=== PATIENT | male | born 1955 | race Caucasian/White ===

== ENCOUNTER 2019-10-01 13:28 | Emergency (ER) | payer OTHER, MEDICARE, SELFPAY ==
[2019-10-01 13:53] VITALS: BP 141/83; PULSE 86; RESP 16; TEMP 37; O2SAT 96; BMI 28.5
[2019-10-01 15:19] LABS: Basophils % 0.5 %; Eosinophils # 0.2 10^3/uL (0.0-0.8); Eosinophils % 2.9 %; Hematocrit 42.3 % (42.0-52.0); Hemoglobin 13.7 g/dL (11.7-16.6); Lymphocytes % 18.2 %; Mean Corpuscular HGB Conc 32.4 g/dL (30.0-36.0); Mean Corpuscular Hemoglobin 29.1 pg (28.0-34.0); Mean Platelet Volume 10.1 fL (7.4-10.4); Monocytes # 0.4 10^3/uL (0.2-0.9); Monocytes % 7.3 %; Neutrophils # 3.9 10^3/uL (1.8-7.7); Neutrophils % 70.6 %; Nucleated Red Blood Cells % 0 %; Platelet Count 192 10^3/cmm (130-400); Red Cell Distribution Width 13.8 % (12.1-15.1); White Blood Count 5.5 10^3/uL (4.0-10.0)
[2019-10-01 15:36] LABS: Alanine Aminotransferase 51 U/L (0-41); Albumin Level 4.3 g/dL (3.5-5.2); Alkaline Phosphatase 80 IU/L (40-130); Anion Gap 17.1 (5-19); Aspartate Amino Transferase 36 U/L (0-40); Blood Urea Nitrogen 15 mg/dL (8-23); C Reactive Protein 83.1 mg/L (0.0-4.9); Calcium 9.5 mg/dL (8.5-10.5); Carbon Dioxide 26 mmol/L (22-29); Chloride 96 mmol/L (98-107); Globulin 3.3 g/dL (1.3-4.6); Glucose 117 mg/dL (65-115); Osmolality Calculated 277 mOsm/kg (285-295); Potassium 4.1 mmol/L (3.5-5.1); Sodium 135 mmol/L (136-145); Total Bilirubin 0.5 mg/dL (0.15-1.2); Total Protein 7.6 g/dL (6.6-8.7)
--- NOTE | 2019-10-01 15:46 | W.ED.ALLEREA ---
HPI - Allergic Reaction General: Chief complaint: General Medical Stated complaint: rash/chills sent over by [facility] Time Seen by Provider: 10/01/19 15:27 Source: patient Mode of arrival: ambulatory Limitations: no limitations History of Present Illness: HPI narrative: Patient is a very nice 64-year-old male who presents to ED today with complaints of possible allergic reaction. Patient tells me he began taking Bactrim 5 days ago following a cyst/abscess drainage to the back. He states ever since starting that medication he has not felt well and has had nausea, slight dizziness, body aches, and this morning noticed a rash. Patient has not been running fevers. He has not noticed any intraoral lesions or other mucosal membrane lesions. Patient denies chest pain, shortness of breath, difficulty breathing, cough. He states lesion to his back is healing. complaint: allergic reaction Onset (ago): day(s) Exposure: medication (Bactrim) Associated symptoms: Reports dizziness, nausea and rash; Deny abdominal pain or vomiting Severity: moderate Treatment prior to arrival: none Previous Allergic Reaction History: none Review of Systems Const: Reports: body aches; Denies: fever(s), chills, change in appetite, change in weight, fatigue or malaise Eyes: Denies: change in vision, blurry vision, photophobia, floaters or seeing flashes ENMT: Denies: throat pain, enlarged tonsils, odynophagia, swelling of lips/tongue or oral sores Card: Denies: chest pain Resp: Denies: dyspnea GI: Reports: nausea; Denies: abdominal pain, vomiting or diarrhea Musc: Denies: neck pain or back pain Skin/Breast: Reports: rash Neuro: Reports: dizziness; Denies: headache(s), numbness in extremities, weakness in extremities or sensory changes PFS ED PFSH: Medical History (Updated 10/01/19 @ 15:55 by NORMA Chand) Abscess Asthma COPD (chronic obstructive pulmonary disease) Diabetes Hyperlipidemia Hypertension Surgical History H/O heart bypass surgery H/O inguinal hernia repair H/O umbilical hernia repair Family History Other Cancer Diabetes Denies family history of CAD (coronary artery disease) Anesthesia complication Bleeding disorder Social History Smoking and tobacco status: never smoked Alcohol intake: never Household members: spouse Marital status: Current occupational status: employed History of recent travel: No Physical Exam Const: COMMON NORMALS: no acute distress, patient oriented x3, no limitations and alert NUTRITIONAL APPEARANCE: obese ORIENTATION/CONSCIOUSNESS: Yes oriented to person, Yes oriented to place and Yes oriented to time HENMT: COMMON NORMALS: normocephalic and atraumatic HEAD & SCALP: normal to inspection, normocephalic and atraumatic FACE & SINUS: normal facial exam and sinuses nontender MOUTH: Normal oral and palatal mucosa present, lip normal and tongue normal THROAT: posterior oropharynx normal Eye: COMMON NORMALS: Equal, round and reactive pupils present, EOMs intact bilaterally and conjunctivae normal CONJUNCTIVA: Yes conjunctivae normal PUPIL: Yes Equal, round and reactive pupils present Lymph: LYMPHATIC: no lymphadenopathy noted Resp: COMMON NORMALS: normal respiratory effort and clear to auscultation bilaterally AUSCULTATION: clear to auscultation bilaterally Cardio: COMMON NORMALS: regular rate and regular rhythm RATE: regular rate RHYTHM: regular rhythm GI: COMMON NORMALS: Normal to inspection, nondistended, normoactive bowel sounds present, Soft to palpation, non-tender, No hepatosplenomegaly present and no masses PALPATION: Yes Soft to palpation and Yes No hepatosplenomegaly present Extremity: COMMON NORMALS: normal to inspection GENERAL: Yes normal exam except as noted Neuro: COMMON NORMALS: patient oriented x3 SENSORIUM/ORIENTATION: Yes alert, Yes oriented to person, Yes oriented to place and Yes oriented to time Skin: OTHER: Patient has morbilliform appearing rash to bilateral upper extremities and trunk consistent with a sulfa drug eruption; has lanced cyst/abscess to upper back that appears fully healed. Course Vital Signs: Vital signs: Vital Signs Temperature 98.6 F 10/01/19 13:53 Pulse Rate 86 10/01/19 13:53 Respiratory Rate 16 10/01/19 13:53 Blood Pressure 141/83 10/01/19 13:53 Pulse Oximetry 96 10/01/19 13:53 MDM - Allergic Reaction MDM Narrative: Medical decision making narrative: Patient has no evidence at this time for erythema multiforme, SJS, or TEN. Recommend DC abx. Lesion on back is fully healed and no need to switch him to different abx. Lab Data: Labs: Lab Results 10/01/19 10/01/19 Range/Units 14:50 14:50 WBC 5.5 (4.0-10.0) 10^3/ uL RBC 4.70 (4.1-5.3) 10^6/u L Hgb 13.7 (11.7-16.6) g/dL Hct 42.3 (42.0-52.0) % MCV 90.0 (80-94) fL MCH 29.1 (28.0-34.0) pg MCHC 32.4 (30.0-36.0) g/dL RDW 13.8 (12.1-15.1) % Plt Count 192 (130-400) 10^3/c mm MPV 10.1 (7.4-10.4) fL Neut % (Auto) 70.6 % Lymph % (Auto) 18.2 % [place] % (Auto) 7.3 % Eos % (Auto) 2.9 % Baso % (Auto) 0.5 % Neut # (Auto) 3.9 (1.8-7.7) 10^3/u L Lymph # (Auto) 1.0 (0.8-4.8) 10^3/u L [place] # (Auto) 0.4 (0.2-0.9) 10^3/u L Eos # (Auto) 0.2 (0.0-0.8) 10^3/u L Baso # (Auto) 0.0 (0.0-0.1) 10^3/u L Nucleated RBC % (a uto) 0 % Nucleated RBCs # 0.0 /100WBC Sodium 135 L (136-145) mmol/L Potassium 4.1 (3.5-5.1) mmol/L Chloride 96 L (98-107) mmol/L Carbon Dioxide 26 (22-29) mmol/L Anion Gap 17.1 (5-19) BUN 15 (8-23) mg/dL Creatinine 1.1 (0.7-1.2) mg/dL GFR Calculation 67.0 L (90-130) mL/min Glucose 117 H (65-115) mg/dL Calculated Osmolal ity 277 L (285-295) mOsm/k g Calcium 9.5 (8.5-10.5) mg/dL Total Bilirubin 0.5 (0.15-1.2) mg/dL AST 36 (0-40) U/L ALT 51 H (0-41) U/L Alkaline Phosphata se 80 (40-130) IU/L C-Reactive Protein 83.1 H (0.0-4.9) mg/L Total Protein 7.6 (6.6-8.7) g/dL Albumin 4.3 (3.5-5.2) g/dL Globulin 3.3 (1.3-4.6) g/dL Discharge Plan Discharge Patient Disposition: Home, Self-Care Clinical Impression: Allergic drug rash due to sulfonamide Condition: Stable Prescriptions: No Action ascorbate calcium (vitamin C) 500 mg tablet 500 mg PO DAILY RF: 0 cholecalciferol (vitamin D3) 25 mcg (1,000 unit) capsule 25 mcg PO DAILY RF: 0 omega-3 fatty acids [Fish Oil Concentrate] 1,000 mg capsule 1,000 mg PO DAILY RF: 0 mecobalamin (vitamin B12) 5,000 mcg tablet,disintegrating PO DAILY RF: 0 fluticasone propion-salmeterol [Advair Diskus] 500-50 mcg/dose blister with device 1 inh INHALATION BID RF: 0 aspirin [Adult Low Dose Aspirin] 81 mg tablet,delayed release (DR/EC) 81 mg PO DAILY RF: 0 atorvastatin 80 mg tablet 80 mg PO DAILY RF: 0 sulfamethoxazole-trimethoprim [Bactrim DS] 800-160 mg tablet 1 tab PO BID RF: 0 doxycycline hyclate 100 mg capsule 100 mg PO BID RF: 0 furosemide 40 mg tablet 40 mg PO DAILY RF: 0 lisinopril 40 mg tablet 80 mg PO DAILY RF: 0 metformin 1,000 mg tablet 1,000 mg PO DAILY RF: 0 metoprolol tartrate 100 mg tablet 100 mg PO DAILY RF: 0 nifedipine 60 mg tablet extended release 24hr 60 mg PO DAILY RF: 0 potassium chloride 20 mEq tablet extended release 20 meq PO DAILY RF: 0 red yeast rice 600 mg capsule 1,200 mg PO DAILY RF: 0 Discharge Orders: Discharge Order (Routine); Ordered 10/01/19 Ordered By: Talisha Torres Referrals: Michael Perkins DO [Primary Care Provider] - Activity Restrictions/Additional Instructions: Add sulfa drugs to your allergy list. Discontinue taking the Bactrim. Watch for symptom improvement over the next 48-72 hours. If symptoms worsen at any time or fail to improve please follow up with primary care or return to the ED. Coding Level of Care Code ED Proof Passer for Lakeisha Horvath Exam Comprehensive
[2019-10-01 16:29] VITALS: BP 125/80; PULSE 75; O2SAT 96
== END 2019-10-01 16:29 | disposition home or self-care (01) ==
PROVIDERS: Emergency Provider Physician Assistant; Family Provider Emergency Medicine Emergency Medical Services; PCP Emergency Medicine Emergency Medical Services
DX: L27.0 Generalized skin eruption due to drugs and medicaments taken internally (principal); T37.0X5A Adverse effect of sulfonamides, initial encounter; Z79.82 Long term (current) use of aspirin; J44.9 Chronic obstructive pulmonary disease, unspecified; E11.9 Type 2 diabetes mellitus without complications; E78.5 Hyperlipidemia, unspecified; I10 Essential (primary) hypertension
CPT/HCPCS: 12345; 80053; 85025; 86140; 99281; 99282

== ENCOUNTER 2019-12-02 07:29 | Outpatient (CLI) | payer OTHER, SELFPAY ==
--- NOTE | 2019-12-02 07:46 | USCV_ITS ---
Sourav Anders Age: 64 Gender: M : 1955 Exam Date: 12/02/2019 08:07 Ordering Phys: Efe Rachel MD Technologist: Estee Melgar [place] [facility] [place]: hx of cad BP: 137 / 71 HR: 69 Rhythm: Sinus Technical Quality: Adequate MEASUREMENTS (Male / Female) Normal Values 2D ECHO LV Diastolic Diameter PLAX 4.6 cm 4.2 - 5.9 / 3.9 - 5.3 cm LV Systolic Diameter PLAX 3.0 cm LV Chamber Size 3.9 cm IVS Diastolic Thickness 2.3 cm 0.6 - 1.0 / 0.6 - 0.9 cm IVS Systolic Thickness 2.3 cm LVPW Diastolic Thickness 2.1 cm 0.6 - 1.0 / 0.6 - 0.9 cm LVPW Systolic Thickness 2.6 cm RV Chamber Size 3.6 cm LVOT Diameter 2.1 cm LV Ejection Fraction 2D Teich 62.9 % LV Ejection Fraction MOD 2C 57.4 % LV Ejection Fraction 2C AL 56.1 % LA Diameter 3.8 cm LA Width 3.3 cm LA Height 4.8 cm RA Width 3.1 cm RA Height 4.3 cm M-MODE LV Diastolic Diameter MM 9.3 cm 4.2 - 5.9 / 3.9 - 5.3 cm LV Systolic Diameter MM 7.7 cm LV Ejection Fraction MM Teich 33.6 % IVS Diastolic Thickness MM 1.3 cm 0.6 - 1.0 / 0.6 - 0.9 cm IVS Systolic Thickness MM 1.5 cm LVPW Diastolic Thickness MM 1.1 cm 0.6 - 1.0 / 0.6 - 0.9 cm LVPW Systolic Thickness MM 1.8 cm Aortic Annulus Diameter 4.2 cm LA Ao Ratio MM 0.9 MV E Point Septal Separation 1.8 cm DOPPLER AV Peak Velocity 126.0 cm/s LVOT Peak Velocity 98.0 cm/s AV Area Cont Eq vti 2.1 cm squared AV Area Cont Eq pk 2.6 cm squared MV Area PHT 4.1 cm squared Mitral E to A Ratio 0.8 MV E' Velocity 10.0 cm/s Mitral E to MV E' Ratio 6.5 Mitral E to LV E' Lateral Ratio 6.7 Mitral E to LV E' Septal Ratio 6.4 TR Peak Velocity 250.0 cm/s TR Peak Gradient 25.0 mmHg TR Mean Velocity 182.9 cm/s TR Mean Gradient 16.7 mmHg TR Velocity Time Integral 82.3 cm TV Peak E Velocity 40.0 cm/s Right Atrial Pressure 3.0 mmHg Pulmonary Artery Systolic Pressu 28.0 mmHg PV Peak Velocity 54.0 cm/s RV Acceleration Time 0.1 s RV Ejection Time 0.3 s RV AcT/ET 0.5 FINDINGS Left Ventricle Normal left ventricular size. LV systolic function is borderline normal. LVEF is 50 to 55%. No regional wall motion abnormalities. Mild LVH is noted. Diastolic dysfunction is present. Right Ventricle The right ventricle is normal in size and function. Right Atrium The right atrium is normal in size. Left Atrium The left atrium is normal in size. Mitral Valve Structurally normal mitral valve without significant stenosis or prolapse. There is mild mitral regurgitation. Aortic Valve Structurally normal aortic valve without significant sclerosis or stenosis. There is no aortic regurgitation. Tricuspid Valve Structurally normal tricuspid valve without significant stenosis. There is mild tricuspid regurgitation. RVSP is 25 to 30 mmHg. Pulmonic Valve Structurally normal pulmonic valve without significant stenosis. There is no pulmonic regurgitation. Pericardium Normal pericardium without effusion. Aorta Normal ascending aorta dimension. CONCLUSIONS LV systolic function is borderline normal with EF of 50 to 55%. No regional wall motion abnormalities are noted. Mild mitral regurgitation and tricuspid regurgitation. Dipak Tidwell MD (Electronically Signed) Final Date: 02 December 2019 11:03 S
== END 2019-12-02 07:30 | disposition home or self-care (01) ==
LOC: US 07:30
PROVIDERS: PCP Emergency Medicine Emergency Medical Services; Visit Provider Internal Medicine Clinical Cardiac Electrophysiology
DX: Z87.898 Personal history of other specified conditions (principal); I34.0 Nonrheumatic mitral (valve) insufficiency; I07.1 Rheumatic tricuspid insufficiency
CPT/HCPCS: 93306

== ENCOUNTER 2021-01-31 12:34 | Outpatient (CLI) | payer OTHER, SELFPAY ==
--- NOTE | 2021-01-31 08:00 | USCV_ITS ---
Sourav Anders Age: 66 Gender: M : 1955 Exam Date: 01/31/2021 12:49 Ordering Phys: Mary Read MD ([email or web address]) Technologist: An Scott Exam Location: [facility] – [place] Indication: cad BP: 200 / 90 HR: 74 Rhythm: Sinus Technical Quality: Technically difficult study MEASUREMENTS (Male / Female) Normal Values 2D ECHO LVOT Diameter 2.0 cm LV Ejection Fraction MOD 2C 47.6 % LV Ejection Fraction 2C AL 49.9 % LA Diameter 3.7 cm LA Width 3.7 cm LA Height 4.5 cm RA Width 3.5 cm RA Height 4.0 cm Aorta at Sinotubular Diameter 2.3 cm DOPPLER AV Peak Velocity 102.0 cm/s LVOT Peak Velocity 73.0 cm/s AV Area Cont Eq vti 2.4 cm squared AV Area Cont Eq pk 2.3 cm squared MV Area PHT 3.3 cm squared Mitral E to A Ratio 0.4 MV E' Velocity 21.5 cm/s Mitral E to MV E' Ratio 5.4 Mitral E to LV E' Lateral Ratio 4.9 Mitral E to LV E' Septal Ratio 6.2 TV Peak E Velocity 33.0 cm/s Right Atrial Pressure 3.0 mmHg PV Peak Velocity 77.0 cm/s FINDINGS Left Ventricle Mild diffuse hypokinesia of the septum, anteroseptum. Moderate hypokinesia of the basal and mid inferior wall segment. Overall LV ejection fraction around 47%.Grade I/IV diastolic dysfunction (abnormal relaxation filling pattern), normal to mildly elevated filling pressures. Mild left ventricular hypertrophy. Right Ventricle The right ventricle is normal in size and function. Right Atrium The right atrium is normal in size. Left Atrium Mildly increased left atrial size. Mitral Valve Thickened mitral valve. Aortic Valve Thickened aortic valve. Tricuspid Valve No gross abnormalities noted Pulmonic Valve Pulmonic valve not well visualized. Pericardium Normal pericardium without effusion. Aorta Normal ascending aorta dimension. CONCLUSIONS Mild diffuse hypokinesia of the septum, anteroseptum. Moderate hypokinesia of the basal and mid inferior wall segment. Overall LV ejection fraction around 47%. Grade I/IV diastolic dysfunction (abnormal relaxation filling pattern), normal to mildly elevated filling pressures. Mild left ventricular hypertrophy. Thickened aortic and mitral valves. Mildly increased left atrial size. No significant stenotic or regurgitant lesions Technically difficult study because of the poor ultrasonic window. Comparison with the previous study is difficult because of the difference in the technical quality. Dr Mary Read MD [facility] (Electronically Signed) Final Date: 31 January 2021 18:39 S
== END 2021-01-31 12:35 | disposition home or self-care (01) ==
LOC: RAD 12:35
PROVIDERS: PCP Emergency Medicine Emergency Medical Services; Visit Provider Internal Medicine Cardiovascular Disease
DX: R06.00 Dyspnea, unspecified (principal); I25.10 Atherosclerotic heart disease of native coronary artery without angina pectoris; I08.0 Rheumatic disorders of both mitral and aortic valves
CPT/HCPCS: 93306

== ENCOUNTER 2022-03-05 11:37 | Inpatient (IN) | payer OTHER, SELFPAY ==
[2022-03-05] VITALS (10 sets, daily range): BP systolic 123–150; BP diastolic 71–98; PULSE 72–150; RESP 14–20; TEMP 36.6–37.2; O2SAT 90–97; BMI 29.8
--- NOTE | 2022-03-05 12:34 | XR_ITS ---
WS: [id number] EXAMINATION: XR chest 1V portable [id number] REASON FOR EXAM: sob, cough COMPARISON: None available. ORDER DATE: 03/05/2022 12:45 PM TECHNIQUE: A single, portable frontal chest x-ray was obtained. X-RAY FINDINGS: There is a wedge-shaped area mid left lung pulmonary consolidation. There is a possible central cavit calixto focus. Pleural spaces are clear. No pleural effusions or pneumothorax. Cardiomediastinal silhouette demonstrates postsurgical mediastinal change.. No evidence for pulmonary edema. Soft tissue and osseous structures are unremarkable. No tubes or lines are present. XR/XR chest 1V portable [id number] IMPRESSION: Prominent area of consolidation in the mid left lung extending from the hilar r egion with possible cavitary focus. Recommend CT imaging correlation for furthe r assessment cannot rule out endobronchial neoplasm or other cause for bronchia l obstruction.
--- NOTE | 2022-03-05 12:54 | ED_ITS ---
HPI - SOB/Dyspnea General: Chief Complaint: Shortness of Breath/Dyspnea Stated Complaint: COPD, SOB Time Seen by Provider: 03/05/22 12:44 Source: patient Mode of arrival: ambulatory History of Present Illness: HPI Narrative: 67-year-old male presents to the emergency room with complaint of shortness of breath. Patient has a moderately productive cough occasionally with some blood- streaked sputum that is been going on for the last 4 days no fevers sweats or chills. He has felt very short of breath he is not usually on oxygen. He does have a history of COPD he is on albuterol as needed as well as Advair. No chest pain no orthopnea. MD elicited complaint: shortness of breath and cough Pertinent past history: COPD Onset (ago): day(s) (4) Timing: constant Severity: mild Exacerbating factors: exertion and coughing Relieving factors: rest Known history of: COPD Associated symptoms: Reports chest congestion, cough and hemoptysis; Deny abdominal pain, chest pain, diaphoresis, dizziness, extremity pain, fever(s), lightheadedness, myalgias, nausea, orthopnea, palpitations, paresthesias, polydipsia, polyuria, rash, sense of impending doom, syncope or vomiting Treatment prior to arrival: none Review of Systems Const: Denies: fever(s), chills, fatigue, malaise or diaphoresis ENMT: Denies: throat pain, ear or mastoid pain, nasal discharge or nasal congestion Card: Denies: chest pain, palpitations, lightheadedness, syncope or orthopnea Resp: Reports: dyspnea, productive cough, wheezing, hemoptysis and chest congestion GI: Denies: abdominal pain, nausea or vomiting : Denies: flank pain, dysuria, urinary frequency or urinary urgency Musc: Denies: extremity pain Skin/Breast: Denies: rash or pruritus Neuro: Denies: dizziness Endo: Denies: polyuria or polydipsia PFSH ED PFSH: Medical History Abscess Asthma COPD (chronic obstructive pulmonary disease) Diabetes 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 Hyperlipidemia Hypertension Surgical History H/O heart bypass surgery H/O inguinal hernia repair H/O umbilical hernia repair Hx of CABG Family History Father Diabetes Lung disease Brother Suicide Other Cancer Denies family history of CAD (coronary artery disease) Clotting disorder Dementia Chronic kidney disease (CKD) Anesthesia complication Bleeding disorder Stroke Social History Smoking and tobacco status: never smoked Alcohol intake: current Alcohol intake frequency: holidays/special occasions only Household members: spouse Marital status: Current occupational status: employed History of recent travel: No Physical Exam Const: COMMON NORMALS: no acute distress GENERAL APPEARANCE: cooperative and comfortable ORIENTATION/CONSCIOUSNESS: Yes awake, Yes oriented to person, Yes oriented to place and Yes oriented to time HENMT: COMMON NORMALS: normocephalic, atraumatic and hearing grossly normal bilaterally HEAD & SCALP: normocephalic and atraumatic Resp: COMMON NORMALS: normal respiratory effort, No retractions and No use of accessory muscles AUSCULTATION: rhonchi left lower and wheezes Cardio: COMMON NORMALS: regular rate, regular rhythm and No murmurs present (Cardio) RATE: regular rate RHYTHM: regular rhythm GI: COMMON NORMALS: Soft to palpation and No hepatosplenomegaly present AUSCULTATION: Yes normoactive bowel sounds PALPATION: Yes Soft to palpation, No Tenderness to palpation present (GI), No Guarding due to palpation present (GI) and Yes No hepatosplenomegaly present Extremity: COMMON NORMALS: normal to inspection, capillary refill normal, no clubbing, cyanosis or edema, no calf tenderness and no pedal edema Neuro: SENSORIUM/ORIENTATION: Yes oriented to person, Yes oriented to place and Yes oriented to time Skin: COMMON NORMALS: no rashes or lesions noted GENERAL SKIN EXAM: no rashes or lesions noted Course Vital Signs: Vital signs: Vital Signs Temperature 98.3 F 03/05/22 12:13 Pulse Rate 115 H 03/05/22 14:24 Respiratory Rate 16 03/05/22 14:24 Blood Pressure 150/98 03/05/22 14:24 Pulse Oximetry 94 03/05/22 14:24 Oxygen Delivery Me thod 03/05/22 14:24 Oxygen Flow Rate 2 03/05/22 14:24 MDM - SOB/Dyspnea Medical Decision Making Right middle lobe pneumonia. On the chest x-ray there is a concern for postobstructive pneumonia talk to Dr. Vargas read the CT she does not see anything convincing for postobstructive pneumonia we will start him on Zosyn. He is gotten steroids and nebulizers he is requiring oxygen he is mildly tachycardic. He is not normally on oxygen he is up to 3 L/min at this time. Medical Records I reviewed the patient's medical records. Lab Data I reviewed the patient's lab results. 03/05/22 13:05 03/05/22 13:05 Labs/Radiology: Radiology Impressions Chest X-Ray 03/05/22 12:34 IMPRESSION: Prominent area of consolidation in the mid left lung extending from the hilar region with possible cavitary focus. Recommend CT imaging correlation for further assessment cannot rule out endobronchial neoplasm or other cause for bronchial obstruction. Chest CTA 03/05/22 13:55 IMPRESSION: 1. No pulmonary embolism. 2. Dense area of consolidation with adjacent groundglass attenuation and air bronchograms in the lingula. Additional smaller subsegmental opacifications at the lung bases. Consistent with pneumonia. Recommend follow-up to resolution. 3. Reactive mediastinal and hilar lymph nodes. 4. LEFT adrenal mass, indeterminate. Adrenal mass CT protocol is recommended after the patient recovers from the subacute pneumonia. Laboratory Results WBC 13.3 10^3/uL (4.0-10.0) H 03/05/22 13:05 RBC 4.41 10^6/uL (4.1-5.3) 03/05/22 13:05 Hgb 13.2 g/dL (11.7-16.6) 03/05/22 13:05 Hct 40.6 % (42.0-52.0) L 03/05/22 13:05 MCV 92.1 fl (80-94) 03/05/22 13:05 MCH 29.9 pg (28.0-34.0) 03/05/22 13:05 MCHC 32.5 g/dL (30.0-36.0) 03/05/22 13:05 RDW 14.5 % (12.1-15.1) 03/05/22 13:05 Plt Count 280 10^3/cmm (130-400) 03/05/22 13:05 MPV 10.7 fL (7.4-10.4) H 03/05/22 13:05 Neut % (Auto) 74.7 % 03/05/22 13:05 Lymph % (Auto) 11.8 % 03/05/22 13:05 [place] % (Auto) 8.6 % 03/05/22 13:05 Eos % (Auto) 0.4 % 03/05/22 13:05 Baso % (Auto) 0.4 % 03/05/22 13:05 Neut # (Auto) 9.92 10^3/uL (1.8-7.7) H 03/05/22 13:05 Lymph # (Auto) 1.6 10^3/uL (0.8-4.8) 03/05/22 13:05 [place] # (Auto) 1.1 10^3/uL (0.2-0.9) H 03/05/22 13:05 Eos # (Auto) 0.1 10^3/uL (0.0-0.8) 03/05/22 13:05 Baso # (Auto) 0.1 10^3/uL (0.0-0.1) 03/05/22 13:05 Nucleated RBC % (auto) 0 % 03/05/22 13:05 Nucleated RBCs # 0.0 /100WBC 03/05/22 13:05 Sodium 128 mmol/L (136-145) L 03/05/22 13:05 Potassium 3.7 mmol/L (3.5-5.1) 03/05/22 13:05 Chloride 95 mmol/L (98-107) L 03/05/22 13:05 Carbon Dioxide 22 mmol/L (22-29) 03/05/22 13:05 Anion Gap 14.7 (5-19) 03/05/22 13:05 BUN 35 mg/dL (8-23) H 03/05/22 13:05 Creatinine 1.1 mg/dL (0.7-1.2) 03/05/22 13:05 GFR Calculation 66.4 mL/min (90-130) L 03/05/22 13:05 Glucose 125 mg/dL (65-115) H 03/05/22 13:05 Calculated Osmolality 275 mOsm/kg (285-295) L 03/05/22 13:05 Calcium 9.5 mg/dL (8.5-10.5) 03/05/22 13:05 Total Bilirubin 0.3 mg/dL (0.15-1.2) 03/05/22 13:05 AST 34 U/L (0-40) 03/05/22 13:05 ALT 58 U/L (0-41) H 03/05/22 13:05 Alkaline Phosphatase 88 U/L (40-130) 03/05/22 13:05 Total Protein 7.0 g/dL (6.6-8.7) 03/05/22 13:05 Albumin 3.3 g/dL (3.5-5.2) L 03/05/22 13:05 Globulin 3.7 g/dL (1.3-4.6) 03/05/22 13:05 Discharge Plan Discharge Patient Disposition: Admitted As Inpatient Clinical Impression: Community acquired pneumonia, Acute exacerbation of chronic obstructive airways disease Condition: Stable Coding Level of Care Code ED Heating And Ventilation Engineer for Lakeisha Fwd Exam Detailed
[2022-03-05] MEDS: ipratropium-albuterol 3 mL Neb INHALATION ×2 (13:07→21:03)
[2022-03-05 13:23] LABS: Basophils # 0.1 10^3/uL (0.0-0.1); Basophils % 0.4 %; Eosinophils # 0.1 10^3/uL (0.0-0.8); Eosinophils % 0.4 %; Hematocrit 40.6 % (42.0-52.0); Hemoglobin 13.2 g/dL (11.7-16.6); Lymphocytes # 1.6 10^3/uL (0.8-4.8); Lymphocytes % 11.8 %; Mean Corpuscular HGB Conc 32.5 g/dL (30.0-36.0); Mean Corpuscular Hemoglobin 29.9 pg (28.0-34.0); Mean Corpuscular Volume 92.1 fl (80-94); Mean Platelet Volume 10.7 fL (7.4-10.4); Monocytes # 1.1 10^3/uL (0.2-0.9); Monocytes % 8.6 %; Neutrophils # 9.92 10^3/uL (1.8-7.7); Neutrophils % 74.7 %; Nucleated Red Blood Cells % 0 %; Platelet Count 280 10^3/cmm (130-400); Red Blood Count 4.41 10^6/uL (4.1-5.3); Red Cell Distribution Width 14.5 % (12.1-15.1); White Blood Count 13.3 10^3/uL (4.0-10.0)
[2022-03-05 13:45] LABS: Alanine Aminotransferase 58 U/L (0-41); Albumin Level 3.3 g/dL (3.5-5.2); Alkaline Phosphatase 88 U/L (40-130); Aspartate Amino Transferase 34 U/L (0-40); Blood Urea Nitrogen 35 mg/dL (8-23); Calcium 9.5 mg/dL (8.5-10.5); Carbon Dioxide 22 mmol/L (22-29); Chloride 95 mmol/L (98-107); Globulin 3.7 g/dL (1.3-4.6); Glomerular Filtration Rate 66.4 mL/min (90-130); Glucose 125 mg/dL (65-115); Osmolality Calculated 275 mOsm/kg (285-295); Sodium 128 mmol/L (136-145); Total Bilirubin 0.3 mg/dL (0.15-1.2)
[2022-03-05 13:47] LABS: Anion Gap 14.7 (5-19); Potassium 3.7 mmol/L (3.5-5.1)
--- NOTE | 2022-03-05 13:55 | CT_ITS ---
WS: [id number] CT CHEST ANGIOGRAPHY WITH REFORMATS HISTORY: dyspnea, tachypnea, hypoxia TECHNIQUE: Contiguous axial images are obtained through the chest during arterial injection of intrav enous contrast. Images are reconstructed to evaluate the pulmonary arteries. MIP imaging also reviewe d. All CT scans at [facility] use at least one of these dose optimization techniques: automat ed exposure control; mA and/or kV adjustment per patient size (includes targeted exams where dose is matched to clinical indication); or iterative reconstruction. CONTRAST: Omnipaque 350; 95 mL IV. DLP: 404.04 mGy.cm COMPARISON: None available. Adequate opacification of the pulmonary arteries. Normal size pulmonary artery. No filling defects in the pulmonary arteries. Normal size aorta with mild atherosclerotic plaque. Very dense area of consolidation in the lingula. Dense consolidation extends from the hilum to the pl eura. Dense consolidation with additional adjacent groundglass attenuation and air bronchograms. Bebeto tional bilateral lower lobe subsegmental areas of opacification. Very small RIGHT pleural effusion. Numerous mediastinal and hilar lymph nodes are enlarged. The number is also increased. The largest ly mph nodes measure 1.5 cm. Mild LEFT heart enlargement. Prior CABG. RIGHT adrenal mass measures 2.5 x 2.8 cm. Hounsfield units are elevated. Small hiatal hernia. CT/CT angio chest PE protcl [id number] IMPRESSION: 1. No pulmonary embolism. 2. Dense area of consolidation with adjacent groundglass attenuation and air b ronchograms in the lingula. Additional smaller subsegmental opacifications at t he lung bases. Consistent with pneumonia. Recommend follow-up to resolution. 3. Reactive mediastinal and hilar lymph nodes. 4. LEFT adrenal mass, indeterminate. Adrenal mass CT protocol is recommended a fter the patient recovers from the subacute pneumonia.
[2022-03-05] MEDS: iohexol 350 mg/mL 500 mL Btl (per mL) IV (14:14)
[2022-03-05] MEDS: piperacillin-tazobactam 3.375 GM in sodium chloride 0.9% (plus) 50 ML IV (15:11)
[2022-03-05] MEDS: levofloxacin-dextrose 5 % 750 MG/150 ML PREMIX 100 MG IV (15:48)
--- NOTE | 2022-03-05 16:12 | P.HP_ITS ---
Providers/Chief Complaint Admitting Physician: Yanique Forrest MD Primary Care Provider: Michael Perkins DO Chief Complaint: COPD, SOB History of Present Illness Sourav Anders is a 67 year old male who presented to the emergency room with chief complaint of difficulty breathing. Patient has a history of longstanding asthma that is severe and persistent with a known obstructive component. Also has mild alpha 1 antitrypsin deficiency with MZ phenotype as well as multiple environmental allergies. He has previously been seen by Dr. Ruiz here. He has not been feeling well since last week. He has had cough, both productive and nonproductive. Had fever maybe for 5 days ago up to 101. He has been noticing some left-sided pain with deep inspiration and getting progressively more short of breath with exertion as well as at rest. 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 His symptoms continued to worsen over the weekend eventually prompting him to come into the emergency room. He has been using his inhalers without significant improvement. No recent antibiotics. No recent steroid beyond inhaled Advair. In the emergency room he was noted to have a wedge-shaped infiltrate on chest x-ray imaging. He subsequently underwent a CTA of the chest that showed dense consolidation in the left. No evidence of PE. Patient received Levaquin and Zosyn and is being admitted for further care. He believes he has had a pneumonia shot within the last 5 years though specific date is unknown. He chronically declines flu shot. He received primary COVID-vaccine series with 2 boosters. In his work he is exposed to other people quite a bit. He knows he has been around at least 1 household in which all of the children were sick. Oxygen saturations in the emergency room were in the upper 80s, low 90s. Mr. Azar he is not normally on oxygen therapy. He is requiring 3 L by nasal cannula currently. Given new oxygen requirement, extent of pulmonary infiltrate, comorbidities and especially findings consistent with PSI/PORT score of 109 (BUN >30 mg/dl and sodium <130, Risk Class IV, hospitalization recommended), he is being admitted for further care. Review of Systems Const: Reports: fever(s), chills (hot), fatigue and malaise ENMT: Reports: throat pain and dry mouth; Denies: nasal congestion Card: Reports: chest pain (only last few days, pleuritic, stays active usu ally), dyspnea on exertion and other (chronically cleeps sitting up in recliner); Denies: edema Resp: Reports: dyspnea, productive cough, non-productive cough, wheezing, pain on inspiration, change in phlegm color and hemoptysis GI: Denies: abdominal pain, nausea, vomiting or change in bowel habits : Reports: oliguria (darker urine) Musc: Reports: muscle weakness; Denies: extremity swelling Skin/Breast: Denies: rash Neuro: Reports: weakness in extremities (genralized), difficulty walking (from dizziness and shortness of breath) and dizziness (worse with exertion) Psych: Reports: anxiety Alejandro/Lymph: Denies: easy bruising or easy bleeding Medications/Allergies Home Medications Medication Instructions Recorded Confirmed Last Taken Type ascorbate calcium (vitamin C) 500 500 mg PO DAILY 09/29/19 03/05/22 03/05/22 History mg tablet aspirin 81 mg tablet,delayed 81 mg PO QPM 09/29/19 03/05/22 03/04/22 History release (Adult Low Dose Aspirin) cholecalciferol (vitamin D3) 25 25 mcg PO DAILY 09/29/19 03/05/22 03/05/22 History mcg (1,000 unit) capsule fluticasone 500 mcg-salmeterol 50 1 inh inhalation BID 09/29/19 03/05/22 03/05/22 History mcg/dose blistr powdr for inhalation (Advair Diskus) lisinopril 40 mg tablet 80 mg PO DAILY 09/29/19 03/05/22 03/05/22 History metformin 1,000 mg tablet 1,000 mg PO BID 09/29/19 03/05/22 03/04/22 History red yeast rice 600 mg capsule 1,200 mg PO DAILY 09/29/19 03/05/22 03/05/22 History albuterol sulfate 90 mcg/actuation 1 inh inhalation QID PRN shortness 12/26/20 03/05/22 Unknown History aerosol inhaler of breath or wheezing nifedipine 30 mg tablet,extended 30 mg PO DAILY 04/26/21 03/05/22 03/05/22 History release omega-3 fatty acids 1,000 mg 1,000 mg PO BID 03/05/22 03/05/22 03/05/22 History capsule Allergies Allergy/AdvReac Type Severity Reaction Status Date / Time Sulfa (Sulfonamide Allergy Severe Night Verified 03/05/22 14:05 Antibiotics) Sweats and Neck Pain atorvastatin Allergy myalgia Verified 03/05/22 14:05 budesonide [From Symbicort] Allergy ALGY-Difficulty Verified 03/05/22 14:05 Breathing formoterol [From Symbicort] Allergy ALGY-Difficulty Verified 03/05/22 14:05 Breathing lovastatin Allergy myalgia Verified 03/05/22 14:05 metoprolol Allergy ALGY-Hives Verified 03/05/22 14:05 pravastatin Allergy myalgia Verified 03/05/22 14:05 simvastatin Allergy myalgia Verified 03/05/22 14:05 theophylline [From Damian-Dur] Allergy ALGY-Hives Verified 03/05/22 14:05 PFSH Acute PFSH: Medical History (Updated 03/05/22 @ 18:55 by Yanique Forrest MD) Kqfho-[id number] deficiency Phenotype MZ Asthma Benign neoplasm of adrenal gland CAD (coronary artery disease) COPD (chronic obstructive pulmonary disease) no smoking history Diabetes 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 Hyperlipidemia Hypertension Multiple environmental allergies Obesity Obstructive sleep apnea by sleep study, intolerant to CPAP Surgical History (Updated 03/05/22 @ 16:26 by Yanique Forrest MD) H/O heart bypass surgery (~2017) 3 vessel, [place], H/O inguinal hernia repair H/O umbilical hernia repair History of colonoscopy 2018 screening study, sigmoid diverticulosis, intramuscular lipoma left lower abdominal wall, 10 yr follow up Family History Father Diabetes Lung disease Brother Suicide Other Cancer Denies family history of CAD (coronary artery disease) Clotting disorder Dementia Chronic kidney disease (CKD) Anesthesia complication Bleeding disorder Stroke Social History (Updated 03/05/22 @ 17:26 by Yanique Forrest MD) Smoking and tobacco status: never smoked Alcohol intake: current Alcohol intake frequency: holidays/special occasions only Household members: spouse Marital status: Current occupational status: employed 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 History of recent travel: No Vitals/I&O/Wt Last Vital Signs Temp 98.3 F 03/05/22 12:13 Pulse 115 H 03/05/22 14:24 Resp 16 03/05/22 14:24 BP 150/98 03/05/22 14:24 Pulse Ox 94 03/05/22 14:24 O2 Del Method 03/05/22 14:24 O2 Flow Rate 2 03/05/22 14:24 03/05/22 03/05/22 03/05/22 06:59 14:59 22:59 Intake Total 50 / 50 Balance 50 / 50 Weight last 48 hrs Weight 102.058 kg Physical Exam Narrative: Constitutional: Awake and alert, acutely ill-appearing, cooperative, able to provide history HEENT: Normocephalic, atraumatic, mild conjunctival injection, nasopharynx is clear, oropharynx with dry mucous membranes, no erythema Neck: Supple Respiratory: Scattered wheezes that are most prominent on the right, decreased breath sounds on the left with rhonchi mid lung, splinting of the chest with deep inspiration, no retractions at rest though gets short of breath with movement, able to talk in full sentences Cardiovascular: Regular rhythm, distant heart sounds Abdomen: Soft, nontender, positive bowel sounds Extremities: Soft, no pitting edema or calf tenderness, 1+ peripheral pulses are equal Skin: Quite dry everywhere, no large bruises or rashes Neuro: Speech clear, face symmetric, moves all extremities, no abnormal movements Psych: Normal affect Data 03/05/22 13:05 03/05/22 13:05 Other Labs: Radiology Impressions Chest X-Ray 03/05/22 12:34 IMPRESSION: Prominent area of consolidation in the mid left lung extending from the hilar region with possible cavitary focus. Recommend CT imaging correlation for further assessment cannot rule out endobronchial neoplasm or other cause for bronchial obstruction. Chest CTA 03/05/22 13:55 IMPRESSION: 1. No pulmonary embolism. 2. Dense area of consolidation with adjacent groundglass attenuation and air bronchograms in the lingula. Additional smaller subsegmental opacifications at the lung bases. Consistent with pneumonia. Recommend follow-up to resolution. 3. Reactive mediastinal and hilar lymph nodes. 4. LEFT adrenal mass, indeterminate. Adrenal mass CT protocol is recommended after the patient recovers from the subacute pneumonia. Laboratory Results WBC 13.3 10^3/uL (4.0-10.0) H 03/05/22 13:05 RBC 4.41 10^6/uL (4.1-5.3) 03/05/22 13:05 Hgb 13.2 g/dL (11.7-16.6) 03/05/22 13:05 Hct 40.6 % (42.0-52.0) L 03/05/22 13:05 MCV 92.1 fl (80-94) 03/05/22 13:05 MCH 29.9 pg (28.0-34.0) 03/05/22 13:05 MCHC 32.5 g/dL (30.0-36.0) 03/05/22 13:05 RDW 14.5 % (12.1-15.1) 03/05/22 13:05 Plt Count 280 10^3/cmm (130-400) 03/05/22 13:05 MPV 10.7 fL (7.4-10.4) H 03/05/22 13:05 Neut % (Auto) 74.7 % 03/05/22 13:05 Lymph % (Auto) 11.8 % 03/05/22 13:05 Mason % (Auto) 8.6 % 03/05/22 13:05 Eos % (Auto) 0.4 % 03/05/22 13:05 Baso % (Auto) 0.4 % 03/05/22 13:05 Neut # (Auto) 9.92 10^3/uL (1.8-7.7) H 03/05/22 13:05 Lymph # (Auto) 1.6 10^3/uL (0.8-4.8) 03/05/22 13:05 Mason # (Auto) 1.1 10^3/uL (0.2-0.9) H 03/05/22 13:05 Eos # (Auto) 0.1 10^3/uL (0.0-0.8) 03/05/22 13:05 Baso # (Auto) 0.1 10^3/uL (0.0-0.1) 03/05/22 13:05 Nucleated RBC % (auto) 0 % 03/05/22 13:05 Nucleated RBCs # 0.0 /100WBC 03/05/22 13:05 Sodium 128 mmol/L (136-145) L 03/05/22 13:05 Potassium 3.7 mmol/L (3.5-5.1) 03/05/22 13:05 Chloride 95 mmol/L (98-107) L 03/05/22 13:05 Carbon Dioxide 22 mmol/L (22-29) 03/05/22 13:05 Anion Gap 14.7 (5-19) 03/05/22 13:05 BUN 35 mg/dL (8-23) H 03/05/22 13:05 Creatinine 1.1 mg/dL (0.7-1.2) 03/05/22 13:05 GFR Calculation 66.4 mL/min (90-130) L 03/05/22 13:05 Glucose 125 mg/dL (65-115) H 03/05/22 13:05 Calculated Osmolality 275 mOsm/kg (285-295) L 03/05/22 13:05 Calcium 9.5 mg/dL (8.5-10.5) 03/05/22 13:05 Total Bilirubin 0.3 mg/dL (0.15-1.2) 03/05/22 13:05 AST 34 U/L (0-40) 03/05/22 13:05 ALT 58 U/L (0-41) H 03/05/22 13:05 Alkaline Phosphatase 88 U/L (40-130) 03/05/22 13:05 Total Protein 7.0 g/dL (6.6-8.7) 03/05/22 13:05 Albumin 3.3 g/dL (3.5-5.2) L 03/05/22 13:05 Globulin 3.7 g/dL (1.3-4.6) 03/05/22 13:05 Micro: Microbiology 03/05/22 15:00 Blood Culture - Preliminary Blood SPECIMEN COLLECTED 03/05/22 14:58 Blood Culture - Preliminary Blood SPECIMEN COLLECTED A&P Assessment and plan (1) Community acquired pneumonia: Present on admission, organism unknown PSI/PORT score 109 Significant consolidation on imaging in a wedge shape pattern; CTA chest without evidence PE, no indication notated of infarction, has reactive appearing lymph nodes Covid and influenza are pending Legionella pending Blood cultures pending Qualifiers: Laterality: left Lung location: lower lobe of lung Qualified Code(s): J18.9 - Pneumonia, unspecified organism (2) Dehydration: As evidenced by laboratory and clinical findings notated above. Moderate in severity. (3) Asthma: Severe, persistent, with acute exacerbation presently. Also known to have sleep apnea diagnosed by study in past, but intolerant of cpap therapy. On chronic advair and albuterol inhaler. Qualifiers: Asthma complication type: with acute exacerbation Asthma persistence: persistent Asthma severity: severe Qualified Code(s): J45.51 - Severe persistent asthma with (acute) exacerbation (4) Hmlcz-8-dzlktgpdpwy deficiency: Not on current treatment, mild by Dr Ruiz last note (5) Multiple environmental allergies: Contributes to chronic respiratory problems (6) CAD (coronary artery disease): Chronically on aspirin ,keri inhibitor, calcium channel bharti; follows with Dr Read Qualifiers: Associated angina: without angina Coronary Disease-Associated Artery/Lesion type: [place] artery [place] vs. transplanted heart: [place] heart Qualified Code(s): I25.10 - Atherosclerotic heart disease of [place] coronary artery without angina pectoris (7) Hypertension: Chronically on lisinopril, nifedipine Qualifiers: Hypertension type: primary hypertension Qualified Code(s): I10 - Essential (primary) hypertension (8) Dyslipidemia: Chronically on omega 3 fatty acids and red yeast rice (9) Diabetes: Chronically on metformin Qualifiers: Diabetes mellitus complication status: with hyperglycemia Diabetes mellitus middle or intermediate school principal insulin use: without middle or intermediate school principal use Diabetes mellitus type: type 2 Qualified Code(s): E11.65 - Type 2 diabetes mellitus with hyperglycemia (10) BMI 31.0-31.9,adult: Plan Inpatient admission Continue broad antibiotics started in the emergency room Follow-up pending COVID, influenza and blood cultures Pulmonary toilet Systemic steroids; has allergy to budesonide Wean oxygen as able Not normally on home oxygen Senna spirometer and flutter device IV fluids Monitor for significant apnea or decline in respiratory status that might require additional management; Has a history of intolerance of CPAP on sleep study. Typically sleeps sitting up and struggles to sleep outside of his home, admits to anxiety with mask on Baseline ABG Continue home aspirin, KERI inhibitor and nifedipine Continue omega-3 fatty acids in hospital Hold home metformin Sliding scale insulin for diabetes Supportive care otherwise Anticipate discharge home with potentially outpatient follow-up to Dr. Ruiz whom he has seen in the past. May require oxygen transiently at home given the severity of consolidation noted on imaging studies. Findings, concerns and plans were discussed with patient and he was given opportunity to ask questions Full code Attestations Medical Necessity Statement*: Anticipated stay greater than 2 midnights in a gentleman with comorbidities and presentation as described. Found to have dense consolidation in the left lower lobe associated with hypoxemia, low sodium, elevation in creatinine, currently requiring oxygen therapy, close monitoring for further respiratory decline and IV antibiotic therapy. Has significant risk of mortality and morbidity without appropriate level of care. 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 vs. transplanted heart: [place] heart Hypertension I10 Hypertension type: primary hypertension Dyslipidemia E78.5 Diabetes E11.65 Diabetes mellitus complication status: with hyperglycemia Diabetes mellitus mcc insulin use: without mcc use Diabetes mellitus type: type 2 BMI 31.0-31.9,adult Z68.31
[2022-03-05 17:05] LABS: ABG PCO2 30.7 mmHg (35-45); ABG PH Result 7.42 (7.35-7.45); Arterial Blood Gas Hematocrit 39.7 % (42-52); Base Excess ABG -3.8 mmol/L (-2.0-2.0); Blood Gas Allen Test Pos; Blood Gas Operator Identificat GD; Blood Gas Sample Site Radial, right; Blood Gas Sample Type Arterial; HCO3 ABG 19.7 mmol/L (22-26); PO2 ABG 84.7 mmHg (80.0-100.0)
[2022-03-05 17:06] LABS: Oxygen Device NC
[2022-03-05] MEDS: omega-3 fatty acids 1,000 mg Capsule 1000 MG PO (18:21)
[2022-03-05] MEDS: docusate sodium 100 mg Capsule PO (18:22)
[2022-03-05] MEDS: aspirin 81 mg EC Tablet PO (18:22)
[2022-03-05] MEDS: enoxaparin 40 mg/0.4 mL Syringe SUBCUT (18:22)
[2022-03-05] MEDS: sodium chlor 0.9% + KCl 20 mEq 20 MEQ/1,000 ML BAG 100 MEQ IV (18:25)
[2022-03-05 18:48] LABS: Glucose Point of Care 241 mg/dL (70-110)
[2022-03-05] MEDS: lisinopril 20 mg Tablet 40 MG PO (21:42)
[2022-03-05] MEDS: insulin lispro 100 unit/1 mL SUBCUT (21:43)
[2022-03-05 22:37] LABS: Adenovirus Not Detected (NOT DETECT); Chlamydia Pneumoniae Not Detected (NOT DETECT); Coronavirus 229E,HKU1,NL63,OC4 Not Detected (NOT DETECT); Human Metapneumovirus Not Detected (NOT DETECT); Human Rhinovirus/Enterovirus Not Detected (NOT DETECT); Influenza A Not Detected (NOT DETECT); Influenza A H1 Not Detected (NOT DETECT); Influenza A H1-2009 Not Detected (NOT DETECT); Influenza A H3 Not Detected (NOT DETECT); Influenza B Not Detected (NOT DETECT); Mycoplasma Pneumoniae Not Detected (NOT DETECT); Parainfluenza Virus Type 1 Not Detected (NOT DETECT); Parainfluenza Virus Type 2 Not Detected (NOT DETECT); Parainfluenza Virus Type 3 Not Detected (NOT DETECT); Parainfluenza Virus Type 4 Not Detected (NOT DETECT); Respiratory Syncytial Virus A Not Detected (NOT DETECT); Respiratory Syncytial Virus B Not Detected (NOT DETECT); SARS-COV-2 Not Detected (NOT DETECT)
--- NOTE | 2022-03-05 23:29 | ECG_ITS ---
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 Measurements Intervals [place] Rate: 146 P: 0 MI: 0 QRS: -7 QRSD: 98 T: 32 QT: 308 QTc: 481 Interpretive Statements ATRIAL FIBRILLATION WITH RAPID VENTRICULAR RESPONSE WITH ABERRANT CONDUCTION OR VENTRICULAR PREMATURE COMPLEXES NONSPECIFIC T-WAVE ABNORMALITY ABNORMAL RHYTHM ECG INTERPRETATION BASED ON A DEFAULT AGE OF 40 YEARS Compared to ECG 09/15/2018 11:11:11 Aberrant conduction of supraventricular beat(s) now present Ventricular premature complex(es) now present Sinus rhythm no longer present T-wave abnormality still present Electronically Signed On 03-06-2022 18:50:40 ELECTRICIAN CONTROL EQUIPMENT by Kaylin Correa M.D. [id number]
[2022-03-05] MEDS: dilTIAZem 30 mg Tablet PO (23:53)
[2022-03-05] MEDS: dilTIAZem 5 mg/mL SDV 5 mL 10 MG IVP (23:53)
[2022-03-06] VITALS (148 sets, daily range): BP systolic 131–170; BP diastolic 80–99; PULSE 61–130; RESP 12–30; O2SAT 87–99
--- NOTE | 2022-03-06 00:10 | PC.NURSE ---
Pts sustained heart rate 140 to 150bpm. notified. Order was given for an ECG. ECG showed pt in atrial fibrillation with rapid ventricular rate notified. Order was given to administer Cardizem 20mg IVP and Cardizem 30mg po.
[2022-03-06 00:35] LABS: Influenza A by IFA negative (Negative); Influenza B by IFA negative (Negative)
--- NOTE | 2022-03-06 03:01 | PC.NURSE ---
At approximately 0200 pt converted from Afib to NSR heart rate in the 80s. notified.
[2022-03-06] MEDS: ipratropium-albuterol 3 mL Neb INHALATION ×3 (03:09→14:57)
[2022-03-06 03:28] LABS: Basophils % 0.5 %; Hematocrit 40.2 % (42.0-52.0); Lymphocytes % 12.3 %; Mean Corpuscular HGB Conc 32.3 g/dL (30.0-36.0); Mean Corpuscular Hemoglobin 29.7 pg (28.0-34.0); Monocytes # 0.3 10^3/uL (0.2-0.9); Neutrophils # 6.02 10^3/uL (1.8-7.7); Neutrophils % 71.4 %; Nucleated Red Blood Cells % 0 %; Platelet Count 280 10^3/cmm (130-400); Red Blood Count 4.37 10^6/uL (4.1-5.3); Red Cell Distribution Width 14.1 % (12.1-15.1); White Blood Count 8.4 10^3/uL (4.0-10.0)
[2022-03-06] MEDS: sodium chlor 0.9% + KCl 20 mEq 20 MEQ/1,000 ML BAG 100 MEQ IV (03:47)
[2022-03-06 03:57] LABS: Alanine Aminotransferase 60 U/L (0-41); Alkaline Phosphatase 96 U/L (40-130); Anion Gap 15.6 (5-19); Aspartate Amino Transferase 23 U/L (0-40); Blood Urea Nitrogen 33 mg/dL (8-23); Calcium 9.1 mg/dL (8.5-10.5); Carbon Dioxide 22 mmol/L (22-29); Chloride 100 mmol/L (98-107); Creatinine Clr Calc Pharmacy 75.3098; Globulin 3.6 g/dL (1.3-4.6); Glomerular Filtration Rate 66.4 mL/min (90-130); Glucose 230 mg/dL (65-115); Magnesium 2.3 mg/dL (1.7-2.3); Osmolality Calculated 291 mOsm/kg (285-295); Phosphorus 4.9 mg/dL (2.5-4.5); Potassium 4.6 mmol/L (3.5-5.1); Sodium 133 mmol/L (136-145); Total Bilirubin 0.3 mg/dL (0.15-1.2); Total Protein 6.6 g/dL (6.6-8.7)
[2022-03-06 04:02] LABS: Procalcitonin 0.97 ng/mL (0-0.5)
[2022-03-06 04:16] LABS: D Dimer 2.81 ug/mIFEU (0-0.59)
[2022-03-06 04:26] LABS: Slide Review Slide Review Perform
[2022-03-06] MEDS: dilTIAZem 30 mg Tablet PO ×4 (05:56→22:46)
[2022-03-06 06:59] LABS: Glucose Point of Care 314 mg/dL (70-110)
[2022-03-06 07:00] LABS: Glucose Point of Care 217 mg/dL (70-110)
[2022-03-06] MEDS: insulin lispro 100 unit/1 mL SUBCUT ×3 (08:49→17:37)
[2022-03-06] MEDS: enoxaparin 100 mg/mL Syringe SUBCUT ×2 (08:50→21:05)
[2022-03-06] MEDS: cholecalciferol (vitamin D3) 1,000 unit Tablet 1000 UNIT PO (08:51)
[2022-03-06] MEDS: docusate sodium 100 mg Capsule PO ×2 (08:51→17:37)
[2022-03-06] MEDS: omega-3 fatty acids 1,000 mg Capsule 1000 MG PO ×2 (08:51→17:37)
[2022-03-06] MEDS: lisinopril 20 mg Tablet 40 MG PO ×2 (09:17→21:04)
--- NOTE | 2022-03-06 09:32 | PM.PN ---
Subjective Subjective: Patient reportedly went to atrial fibrillation with rapid ventricular rate overnight. He received Cardizem push. He denies any prior known history of atrial fibrillation. He endorses continued shortness of breath. He is on oxygen currently. Denies home oxygen prior to admission. He has known COPD. Endorses cough. Denies chest pain, fevers or chills. Vitals/I&O/Wt Last Vital Signs Temp 98 F 03/05/22 23:25 Pulse 82 03/06/22 09:25 Resp 14 03/06/22 09:25 BP 170/90 03/06/22 09:25 Pulse Ox 95 03/06/22 09:25 O2 Del Method 03/06/22 08:12 O2 Flow Rate 2 03/06/22 08:12 03/05/22 03/06/22 03/06/22 22:59 06:59 14:59 Intake Total 300 / 300 1086.667 / 1386.667 480 / 480 Output Total 400 / 400 Balance 300 / 300 686.667 / 986.667 480 / 480 Weight last 48 hrs Weight 97.069 kg Weight 102.058 kg Physical Exam Narrative: General: Patient is awake and alert. Head: Normocephalic. Atraumatic. EOM intact. Neck: No JVD. Cardiovascular: RRR. No gallops. No murmurs. No peripheral edema. Lungs: Rhonchi in left lung, no use of accessory muscles, no crackles or wheezes. On nasal cannula support. Skin: No jaundice. No rashes. Abdomen: Normal bowel sounds, abdomen soft and nontender. Genito Urinary: Genital exam not performed since complaints not related. Rectal: Rectal exam not performed since no symptoms indicated blood loss. Extremities: No cyanosis or clubbing. Musculoskeletal: No swollen or erythematous joints. Neurological: Moves all 4 extremities. No myoclonus. Data 03/06/22 03:09 03/06/22 03:09 Micro: Microbiology 03/05/22 19:32 Legionella Urinary Antigen - Final Urine,Voided 03/05/22 15:00 Blood Culture - Preliminary Blood SPECIMEN COLLECTED 03/05/22 14:58 Blood Culture - Preliminary Blood SPECIMEN COLLECTED A&P Assessment and plan (1) Pneumonia: Community-acquired pneumonia associated with acute hypoxia CT imaging reviewed COVID and influenza are negative Legionella is pending Blood cultures pending Pulmonary toilet Treat underlying COPD Treat atrial fibrillation Discontinue Levaquin Continue Zosyn (2) Atrial fibrillation: Newly diagnosed per telemetry Continue diltiazem Consider beta-bharti Discussed stroke risk with atrial fibrillation Discussed blood thinner Denies prior bleeding problems other than some blood-tinged sputum yesterday Continue therapeutic Lovenox, if he does well probably switch to DOAC Echocardiogram ordered Monitor electrolytes Telemetry monitoring (3) COPD (chronic obstructive pulmonary disease): With acute exacerbation Discontinue IV fluids Continue Solu-Medrol Continue breathing treatments (4) Hypertension: Blood pressure is uncontrolled Continue diltiazem Cardiology to evaluate Consider possibly starting Coreg if blood pressure stays elevated Qualifiers: Hypertension type: primary hypertension Qualified Code(s): I10 - Essential (primary) hypertension (5) Diabetes: Metformin on hold Continue lispro Avoid hypoglycemia Qualifiers: Diabetes mellitus type: type 2 Diabetes mellitus technician terminal and repeater insulin use: without mcc use Diabetes mellitus complication status: with hyperglycemia Qualified Code(s): E11.65 - Type 2 diabetes mellitus with hyperglycemia (6) Dyslipidemia: ? Continue aspirin (7) CAD (coronary artery disease): History of three-vessel CABG in 2017 Cardiology consult Continue aspirin Apparently not on statin, on red yeast rice as outpatient Qualifiers: Coronary Disease-Associated Artery/Lesion type: [place] artery [place] vs. 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 transplanted heart: [place] heart Associated angina: without angina BMI 31.0-31.9,adult Z68.31 Obstructive sleep apnea G47.33
--- NOTE | 2022-03-06 09:53 | USCV_ITS ---
Sourav Anders Age: 67 Gender: M : 1955 Exam Date: 03/06/2022 10:10 Ordering Phys: Garfield Swanson MD Technologist: ROSALES Exam Location: [facility] [place] Indication: NEW ONSET A FIB BP: 170 / 90 HR: 84 Rhythm: Sinus Technical Quality: Poor MEASUREMENTS (Male / Female) Normal Values 2D ECHO LV Ejection Fraction MOD 2C 41.8 % LV Ejection Fraction 2C AL 44.5 % LA Width 3.3 cm LA Height 4.5 cm RA Width 4.1 cm RA Height 4.7 cm IVC Diameter 1.7 cm DOPPLER AV Peak Velocity 166.0 cm/s LVOT Peak Velocity 108.0 cm/s MV Peak Velocity 105.0 cm/s MV Area PHT 2.4 cm squared Mitral E to A Ratio 0.7 MV E' Velocity 39.5 cm/s Mitral E to MV E' Ratio 7.0 Mitral E to LV E' Lateral Ratio 6.3 Mitral E to LV E' Septal Ratio 7.8 TR Peak Velocity 226.5 cm/s TR Peak Gradient 20.5 mmHg TR Mean Velocity 188.1 cm/s TR Mean Gradient 14.3 mmHg TR Velocity Time Integral 68.2 cm TV Peak E Velocity 53.0 cm/s Right Atrial Pressure 3.0 mmHg Pulmonary Artery Systolic Pressu 23.5 mmHg PV Peak Velocity 110.0 cm/s FINDINGS Left Ventricle The ventricle is poorly seen due to limited views. The apical view is the only useful view. The ventricle appears normal in size and function in this view no wall motion disturbances cannot be determined entirely. The overall ejection fraction is probably within normal limits. There is grade 1 diastolic dysfunction. Right Ventricle Normal right ventricular size and systolic function. Normal right ventricular systolic pressure. Right Atrium The right atrium is normal in size. Left Atrium The left atrium is normal in size. Mitral Valve Structurally normal mitral valve. Trace mitral valve regurgitation. Aortic Valve Structurally normal aortic valve without significant sclerosis or stenosis. There is no aortic regurgitation. Tricuspid Valve Structurally normal tricuspid valve. Trace tricuspid valve regurgitation. Pulmonic Valve Pulmonic valve not well visualized. Pericardium Normal pericardium without effusion. Aorta Normal ascending aorta dimension. IVC The inferior vena cava appears normal. CONCLUSIONS The ventricle is poorly seen due to limited views. The apical view is the only useful view. The ventricle appears normal in size and function in this view no wall motion disturbances cannot be determined entirely. The overall ejection fraction is probably within normal limits. There is grade 1 diastolic dysfunction. Structurally normal mitral valve. Trace mitral valve regurgitation. The previous echo, done 01/31/2021, reveals regional wall motion disturbances which cannot be corroborated on this study due to the poor quality. No other significant differences are noted. Dr. Terry Peraza MD (Electronically Signed) Final Date: 06 March 2022 15:49 S
--- NOTE | 2022-03-06 10:36 | PM.CONSULT ---
Providers/Reason For Consult Consulting Physician/Specialty*: Cardiovascular medicine Reason for Consult*: Atrial fibrillation Requesting Physician: Kiki Attending Physician: Garfield Swanson MD Primary Care Provider: Michael Perkins DO History of Present Illness History of Present Illness Sourav Anders is a 67 year old male shortness of breath and cough. He was diagnosed with left-sided pneumonia by chest x-ray and CT scan. He was admitted for for treatment of the same and overnight had a very brief episode of atrial fibrillation with a rapid ventricular response. He was given 30 mg of p.o. Cardizem and almost immediately converted back to sinus rhythm and has not had any other atrial fibrillation since. No intravenous cardizem was administered. Patient does have a history of underlying lung disease, alpha-1 antitrypsin deficiency, COPD, adrenal adenoma, coronary disease with bypass surgery in 2017, diabetes, dyslipidemia, hypertension, sleep apnea with intolerance of CPAP, obesity and statin intolerance. He has been stable since his bypass surgery. No angina. No further heart attacks. He has not been having any chest pain recently. His blood gas is largely within normal limits. Glomerular filtration rate is 66. Glucose 217. Echo a couple years ago was without any significant abnormality with normal EF and no valvular heart disease. Another echo is of course pending. Review of Systems Narrative: His review of systems is negative. Medications/Allergies Home Medications Medication Instructions Recorded Confirmed Last Taken Type ascorbate calcium (vitamin C) 500 500 mg PO DAILY 09/29/19 03/05/22 03/05/22 History mg tablet aspirin 81 mg tablet,delayed 81 mg PO QPM 09/29/19 03/05/22 03/04/22 History release (Adult Low Dose Aspirin) cholecalciferol (vitamin D3) 25 25 mcg PO DAILY 09/29/19 03/05/22 03/05/22 History mcg (1,000 unit) capsule fluticasone 500 mcg-salmeterol 50 1 inh inhalation BID 09/29/19 03/05/22 03/05/22 History mcg/dose blistr powdr for inhalation (Advair Diskus) lisinopril 40 mg tablet 80 mg PO DAILY 09/29/19 03/05/22 03/05/22 History metformin 1,000 mg tablet 1,000 mg PO BID 09/29/19 03/05/22 03/04/22 History red yeast rice 600 mg capsule 1,200 mg PO DAILY 09/29/19 03/05/22 03/05/22 History albuterol sulfate 90 mcg/actuation 1 inh inhalation QID PRN shortness 12/26/20 03/05/22 Unknown History aerosol inhaler of breath or wheezing nifedipine 30 mg tablet,extended 30 mg PO DAILY 04/26/21 03/05/22 03/05/22 History release omega-3 fatty acids 1,000 mg 1,000 mg PO BID 03/05/22 03/05/22 03/05/22 History capsule Allergies Allergy/AdvReac Type Severity Reaction Status Date / Time Sulfa (Sulfonamide Allergy Severe Night Verified 03/05/22 14:05 Antibiotics) Sweats and Neck Pain atorvastatin Allergy myalgia Verified 03/05/22 14:05 budesonide [From Symbicort] Allergy ALGY-Difficulty Verified 03/05/22 14:05 Breathing formoterol [From Symbicort] Allergy ALGY-Difficulty Verified 03/05/22 14:05 Breathing lovastatin Allergy myalgia Verified 03/05/22 14:05 metoprolol Allergy ALGY-Hives Verified 03/05/22 14:05 pravastatin Allergy myalgia Verified 03/05/22 14:05 simvastatin Allergy myalgia Verified 03/05/22 14:05 theophylline [From Damian-Dur] Allergy ALGY-Hives Verified 03/05/22 14:05 Current Medications Generic Name Dose Route Start Last Admin Trade Name Freq PRN Reason Stop Dose Admin Albuterol/Ipratropium 3 ml 03/05/22 20:00 03/06/22 08:06 Ipratropium-Albuterol 3 Ml Neb INHALATION 3 ml Q6H.RESP GO Administration Aspirin 81 mg 03/05/22 18:00 03/05/22 18:22 Aspirin 81 Mg Ec Tablet PO 81 mg QPM GO Administration Diltiazem HCl 30 mg 03/05/22 23:45 03/06/22 05:56 Diltiazem 30 Mg Tablet PO 30 mg Q6H GO Administration Docusate Sodium 100 mg 03/05/22 18:00 03/06/22 08:51 Docusate Sodium 100 Mg Capsule PO 100 mg BID GO Administration Enoxaparin Sodium 100 mg 03/06/22 09:00 03/06/22 08:50 Enoxaparin 100 Mg/Ml Syringe SUBCUT 100 mg Q12H GO Administration Potassium Chloride/Sodium Chloride 20 meq in 1,000 mls @ 100 mls/hr 03/05/22 17:33 03/06/22 03:47 Sodium Chlor 0.9% + Kcl 20 Meq IV 100 mls/hr .Q10H GO Administration Piperacillin Sod/Tazobactam 50 mls @ 12.5 mls/hr 03/05/22 23:00 03/06/22 08:01 Sod 4.5 gm/ Dextrose IV 12.5 mls/hr Q8H GO Administration Protocol Insulin Human Lispro 0 unit 03/05/22 21:00 03/06/22 08:49 Insulin Lispro 100 Unit/1 Ml SUBCUT 1 unit BEDTIME GO Administration Protocol Insulin Human Lispro 0 unit 03/05/22 18:00 03/06/22 08:03 Insulin Lispro 100 Unit/1 Ml SUBCUT Not Given TIDWM GO Protocol Lisinopril 40 mg 03/05/22 21:00 03/06/22 09:17 Lisinopril 20 Mg Tablet PO 40 mg BID@ GO Administration Methylprednisolone Sodium Succinate 40 mg 03/05/22 21:00 03/06/22 05:56 Methylprednisolone Sod Succ 40 Mg/Ml Inj IVP 40 mg Q8H GO Administration Iminl-6-Fdez Ethyl Esters 1,000 mg 03/05/22 18:00 03/06/22 08:51 [place]-3 Fatty Acids 1,000 Mg Capsule PO 1,000 mg BID GO Administration Vitamin D 1,000 unit 03/06/22 09:00 03/06/22 08:51 Cholecalciferol (Vitamin D3) 1,000 Unit Tablet PO 1,000 unit DAILY GO Administration PFSH Acute PFSH: Medical History (Updated 03/06/22 @ 09:35 by Garfield Swanson MD) Otiga-7-yvnsrlxzigh deficiency Phenotype MZ Asthma Benign neoplasm of adrenal gland CAD (coronary artery disease) COPD (chronic obstructive pulmonary disease) no smoking history Diabetes 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 Hyperlipidemia Hypertension Multiple environmental allergies Obesity Obstructive sleep apnea by sleep study, intolerant to CPAP Surgical History (Updated 03/05/22 @ 16:26 by Yanique Forrest MD) H/O heart bypass surgery (~2016) 3 vessel, [place], H/O inguinal hernia repair H/O umbilical hernia repair History of colonoscopy 2019 screening study, sigmoid diverticulosis, intramuscular lipoma left lower abdominal wall, 10 yr follow up Family History Father Diabetes Lung disease Brother Suicide Other Cancer Denies family history of CAD (coronary artery disease) Clotting disorder Dementia Chronic kidney disease (CKD) Anesthesia complication Bleeding disorder Stroke Social History (Updated 03/05/22 @ 17:26 by Yanique Forrest MD) Smoking and tobacco status: never smoked Alcohol intake: current Alcohol intake frequency: holidays/special occasions only Household members: spouse Marital status: Current occupational status: employed 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 HEENT: Exam within normal limits. NECK: Supple without jugular vein distention. The carotid upstroke is normal without bruits. BACK: Exam normal. LUNGS: Decreased breath sounds bilaterally. Consolidation on the left. Some wheezing. HEART: Regular rate and rhythm. ABDOMEN: Benign without organomegaly or tenderness. EXTREMITIES: No edema. NEUROLOGIC: Exam normal. SKIN: Unremarkable. Data 03/06/22 03:09 03/06/22 03:09 Micro: Microbiology 03/05/22 19:32 Legionella Urinary Antigen - Final Urine,Voided 03/05/22 15:00 Blood Culture - Preliminary Blood SPECIMEN COLLECTED 03/05/22 14:58 Blood Culture - Preliminary Blood SPECIMEN COLLECTED A&P Assessment and plan (1) Pneumonia: (2) Obstructive sleep apnea: (3) Atrial fibrillation: (4) Hypertension: Qualifiers: Hypertension type: primary hypertension Qualified Code(s): I10 - Essential (primary) hypertension (5) Diabetes: Qualifiers: Diabetes mellitus type: type 2 Diabetes mellitus vice president education insulin use: without vice president education use Diabetes mellitus complication status: with hyperglycemia Qualified Code(s): E11.65 - Type 2 diabetes mellitus with hyperglycemia (6) COPD (chronic obstructive pulmonary disease): (7) Asthma: Qualifiers: Asthma severity: severe Asthma persistence: persistent Asthma complication type: with acute exacerbation Qualified Code(s): J45.51 - Severe persistent asthma with (acute) exacerbation (8) Atherosclerosis of coronary artery of [place] heart without angina pectoris: Qualifiers: Coronary Disease-Associated Artery/Lesion type: [place] artery Qualified Code(s): I25.10 - Atherosclerotic heart disease of [place] coronary artery without angina pectoris (9) Benign essential HTN: (10) Dyslipidemia: (11) Hx of CABG: (12) Community acquired pneumonia: Qualifiers: Laterality: left Lung location: lower lobe of lung Qualified Code(s): J18.9 - Pneumonia, unspecified organism (13) CAD (coronary artery disease): Qualifiers: Coronary Disease-Associated Artery/Lesion type: [place] artery [place] vs. transplanted heart: [place] heart Associated angina: without angina Qualified Code(s): I25.10 - Atherosclerotic heart disease of [place] coronary artery without angina pectoris (14) Wwiaq-7-fnrgnzpiycp deficiency: Plan The episode of atrial fibrillation was very brief and he is now converted to sinus rhythm. Quite frankly, I am surprised, with his underlying illnesses, that he has not been in atrial fibrillation before now and more frequently. The atrial fibrillation is brought on this time by the underlying pneumonia. He also has other substrates for atrial fibrillation to include his underlying alpha-1 antitrypsin deficiency, COPD, coronary artery disease, coronary bypass surgery, diabetes, hypertension and sleep apnea. At this point he is not having any objective evidence of ischemia such as chest pain, EKG abnormalities. Troponins have not been evaluated which is appropriate. The echo is pending which I do not anticipate to see changes. I do not see any indication for further cardiac testing given the lack of objective information regarding coronary artery disease. I would stop the diltiazem. I would change his over to a beta-bharti as it is better for his underlying coronary disease and for the prevention of atrial fibrillation. He should be on aspirin but not Plavix. I do not feel strongly that he should be anticoagulated at this point. The episode of atrial fibrillation was brief and has a clear etiology. Once the underlying pneumonia is treated there should be less risk of recurrent atrial fibrillation. In this regard, I would deem it safe to stop the Lovenox. Consult Attestations Medical Necessity Statement: Hospitalization for pneumonia required. 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 Type New History Detailed Exam Detailed Diagnoses Pneumonia J18.9 Obstructive sleep apnea G47.33 Atrial fibrillation I48.91 Hypertension I10 Hypertension type: primary hypertension Diabetes E11.65 Diabetes mellitus type: type 2 Diabetes mellitus vice president education insulin use: without vice president education use Diabetes mellitus complication status: with hyperglycemia COPD (chronic obstructive pulmonary disease) J44.9 Asthma J45.51 Asthma severity: severe Asthma persistence: persistent Asthma complication type: with acute exacerbation Atherosclerosis of coronary artery of [place] heart without angina pectoris I25.10 Coronary Disease-Associated Artery/Lesion type: [place] artery Benign essential HTN I10 Dyslipidemia E78.5 Hx of CABG Z95.1 Community acquired pneumonia J18.9 Laterality: left Lung location: lower lobe of lung CAD (coronary artery disease) I25.10 Coronary Disease-Associated Artery/Lesion type: [place] artery [place] vs. transplanted heart: [place] heart Associated angina: without angina Ldlop-4-gcmvqvobark deficiency E88.01
[2022-03-06 12:40] LABS: Glucose Point of Care 325 mg/dL (70-110)
[2022-03-06 17:08] LABS: Glucose Point of Care 248 mg/dL (70-110)
[2022-03-06] MEDS: aspirin 81 mg EC Tablet PO (17:37)
[2022-03-06 20:48] LABS: Glucose Point of Care 282 mg/dL (70-110)
[2022-03-07] VITALS (10 sets, daily range): BP systolic 150–166; BP diastolic 99–114; PULSE 73–81; RESP 16–20; TEMP 36.7–36.9; O2SAT 87–97
[2022-03-07] MEDS: sodium chlor 0.9% + KCl 20 mEq 20 MEQ/1,000 ML BAG 100 MEQ IV ×2 (00:13→00:14)
[2022-03-07] MEDS: ipratropium-albuterol 3 mL Neb INHALATION ×2 (03:14→07:34)
[2022-03-07] MEDS: HYDROcodone-acetaminophen 5-325 mg Tablet 1 TAB PO (03:56)
[2022-03-07 05:05] LABS: Basophils % 0.2 %; Hematocrit 37.1 % (42.0-52.0); Hemoglobin 12.1 g/dL (11.7-16.6); Lymphocytes # 1.2 10^3/uL (0.8-4.8); Lymphocytes % 9.7 %; Mean Corpuscular HGB Conc 32.6 g/dL (30.0-36.0); Mean Corpuscular Hemoglobin 29.9 pg (28.0-34.0); Mean Corpuscular Volume 91.6 fl (80-94); Mean Platelet Volume 10.5 fL (7.4-10.4); Monocytes # 0.5 10^3/uL (0.2-0.9); Neutrophils # 9.62 10^3/uL (1.8-7.7); Neutrophils % 77.8 %; Nucleated Red Blood Cells % 0 %; Platelet Count 301 10^3/cmm (130-400); Red Blood Count 4.05 10^6/uL (4.1-5.3); Red Cell Distribution Width 14.3 % (12.1-15.1); White Blood Count 12.4 10^3/uL (4.0-10.0)
[2022-03-07 05:23] LABS: Albumin Level 3.3 g/dL (3.5-5.2); Blood Urea Nitrogen 36 mg/dL (8-23); Calcium 8.9 mg/dL (8.5-10.5); Carbon Dioxide 20 mmol/L (22-29); Chloride 103 mmol/L (98-107); Glomerular Filtration Rate 74.1 mL/min (90-130); Glucose 273 mg/dL (65-115); Phosphorus 4.2 mg/dL (2.5-4.5); Sodium 134 mmol/L (136-145)
[2022-03-07] MEDS: dilTIAZem 30 mg Tablet PO (05:56)
[2022-03-07 06:31] LABS: Glucose Point of Care 334 mg/dL (70-110)
[2022-03-07] MEDS: insulin lispro 100 unit/1 mL SUBCUT (07:32)
--- NOTE | 2022-03-07 08:14 | PC.CHAP ---
Pastoral Care Encounter/Spiritual Assessment Type of Contact [] Declined peanut sheller visit [] Patient/Family/Request visit [] Outpatient visit [] Follow-up visit [] Physician referral [] Code/Alert [x] Routine visit [] Staff referral [] Actively dying [] Patient sleeping [] Family support [] [] Out of room [] Palliative care [] [] Receiving care in room [] Pre-surgical visit [] Trauma [] Long length of stay [] ICU visit [] Other: Relational/Emotional Strength [x] Patient feels connected with others/family/visitors/staff [] Distress [] Loneliness/isolation [] Abandonment Spirituality of Patient [] Person of Sarita [] Attends Buddhist of their Sarita [] Believes in Prayer [] Reads Bible or Bahai materials [x] There are Spiritual issues to be addressed Union Contract Representative Interventions [] Prayer [x] Active listening [x] Non-anxious presence [x] Spiritual/emotional support [] Crisis/trauma care [] Spiritual counseling [] Bereavement support [] Provided bereavement packet [] Provided Bible/devotional materials [] Provided toy/stuffed animal, coloring book to patient or family member [] Provided Communion [] Anointing/[place] [] Salvation [x] Completed spiritual assessment [] Other: Impact on Illness or Injury [] Angry [] Fearful [] Anxious [] Often cries [] Exhaustion [] Unable to work [] Unable to attend church [] Unable to walk/stand [] Unable to read [] Unable to drive [] Unable to eat/drink [] Unable to sleep [] Unable to be with family [] Patient intubated [] Other: Summary 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 Has a son that works with him and a step daughter. A couple of grandchildren. Time spent with patient 10m
--- NOTE | 2022-03-07 09:04 | PM.PN ---
Subjective Subjective: Sourav is doing well. No further arrhythmias. He is still on intravenous antibiotics. He is afebrile with a room air saturation of 92%. Blood pressure is slightly high. Heart rate running in the 80s. He states that he feels better. Vitals/I&O/Wt Last Vital Signs Temp 98 F 03/05/22 23:25 Pulse 80 03/07/22 07:41 Resp 18 03/07/22 07:41 BP 150/99 03/07/22 04:00 Pulse Ox 92 03/07/22 07:41 O2 Del Method 03/07/22 07:41 O2 Flow Rate 1 03/07/22 07:35 03/06/22 03/07/22 03/07/22 22:59 06:59 14:59 Intake Total 970 / 2500 251.667 / 2751.667 Balance 970 / 2500 251.667 / 2751.667 Weight last 48 hrs Weight 214 lb Weight 225 lb Physical Exam Narrative: GENERAL: In general he is comfortable and not short of breath at rest HEENT: Exam within normal limits. NECK: Supple without jugular vein distention. The carotid upstroke is normal without bruits. BACK: Exam normal. LUNGS: Decreased breath sounds bilaterally. Some consolidation on the left. HEART: Regular rate and rhythm. ABDOMEN: Benign without organomegaly or tenderness. EXTREMITIES: No edema. NEUROLOGIC: Exam normal. SKIN: Unremarkable. 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 insulin use: without predatory animal exterminator use Diabetes mellitus complication status: with hyperglycemia Qualified Code(s): E11.65 - Type 2 diabetes mellitus with hyperglycemia (5) COPD (chronic obstructive pulmonary disease): (6) Asthma: Qualifiers: Asthma severity: severe Asthma persistence: persistent Asthma complication type: with acute exacerbation Qualified Code(s): J45.51 - Severe persistent asthma with (acute) exacerbation (7) Atherosclerosis of coronary artery of [place] heart without angina pectoris: Qualifiers: Coronary Disease-Associated Artery/Lesion type: [place] artery Qualified Code(s): I25.10 - Atherosclerotic heart disease of [place] coronary artery without angina pectoris (8) Benign essential HTN: (9) Dyslipidemia: (10) Hx of CABG: (11) Community acquired pneumonia: Qualifiers: Laterality: left Lung location: lower lobe of lung Qualified Code(s): J18.9 - Pneumonia, unspecified organism (12) [place]lo-3-uguoaqfrgpa deficiency: Plan No change. Recommendations the same as yesterday delineated in the note. I have no problems with him going home today. He already has an appointment with Dr. Read scheduled in the clinic for the near future. I have instructed him to keep that appointment. 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 Type Established History Detailed Exam Detailed Medical Decision Making Moderate Complexity Diagnoses Obstructive sleep apnea G47.33 Atrial fibrillation I48.91 Hypertension I10 Hypertension type: primary hypertension Diabetes E11.65 Diabetes mellitus type: type 2 Diabetes mellitus shelter insulin use: without shelter use Diabetes mellitus complication status: with hyperglycemia COPD (chronic obstructive pulmonary disease) J44.9 Asthma J45.51 Asthma severity: severe Asthma persistence: persistent Asthma complication type: with acute exacerbation Atherosclerosis of coronary artery of [place] heart without angina pectoris I25.10 Coronary Disease-Associated Artery/Lesion type: [place] artery Benign essential HTN I10 Dyslipidemia E78.5 Hx of CABG Z95.1 Community acquired pneumonia J18.9 Laterality: left Lung location: lower lobe of lung Yrceh-7-fwgpuocgluf deficiency E88.01
[2022-03-07] MEDS: omega-3 fatty acids 1,000 mg Capsule 1000 MG PO (09:15)
[2022-03-07] MEDS: cholecalciferol (vitamin D3) 1,000 unit Tablet 1000 UNIT PO (09:15)
--- NOTE | 2022-03-07 09:15 | P.DS_ITS ---
Discharge Providers Date of Admission: 03/05/22 17:26 Date of Discharge: March 07, 2022 Attending Provider at Admission: Yanique Forrest MD Attending Provider at Discharge: Garfield Swanson MD Consults: Cardiology Primary Care Provider: Michael Perkins DO Diagnoses at Discharge Discharge Diagnosis (1) Obstructive sleep apnea: Status: Acute Permanent problem details: by sleep study, intolerant to CPAP (2) Atrial fibrillation: Status: Acute (3) Hypertension: Status: Chronic Qualifiers: Hypertension type: primary hypertension Qualified Code(s): I10 - Essential (primary) hypertension (4) Diabetes: Status: Chronic Qualifiers: Diabetes mellitus type: type 2 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: without senior care use Diabetes mellitus complication status: with hyperglycemia Qualified Code(s): E11.65 - Type 2 diabetes mellitus with hyperglycemia (5) COPD (chronic obstructive pulmonary disease): Status: Chronic Permanent problem details: no smoking history (6) Asthma: Status: Chronic Qualifiers: Asthma severity: severe Asthma persistence: persistent Asthma complication type: with acute exacerbation Qualified Code(s): J45.51 - Severe persistent asthma with (acute) exacerbation (7) Atherosclerosis of coronary artery of [place]ore[place] heart without angina pectoris: Status: Chronic Qualifiers: Coronary Disease-Associated Artery/Lesion type: [place] artery Qualified Code(s): I25.10 - Atherosclerotic heart disease of [place] coronary artery without angina pectoris (8) Benign essential HTN: Status: Chronic (9) Dyslipidemia: Status: Chronic (10) Hx of CABG: Status: Chronic (11) Community acquired pneumonia: Status: Acute Qualifiers: Laterality: left Lung location: lower lobe of lung Qualified Code(s): J18.9 - Pneumonia, unspecified organism (12) 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 He was treated with IV steroids, breathing treatments, and IV antibiotics. Symptoms improved. He was discharged on oral prednisone and Levaquin. Patient also found to have newly diagnosed atrial fibrillation with rapid ventricular rate. Cardiology was consulted and followed. Patient converted back to normal sinus rhythm. He was started on metoprolol. He was deemed not to need therapeutic anticoagulation. Patient is to follow-up with a primary care provider within 1 week after discharge. Physical Exam Narrative: General: Patient is awake and alert. Head: Normocephalic. Atraumatic. EOM intact. Neck: No JVD. Cardiovascular: RRR. No gallops. No murmurs. No peripheral edema. Lungs: Breath sounds are diminished at bilateral bases, no use of accessory muscles, no crackles or wheezes. Skin: No jaundice. No rashes. Abdomen: Normal bowel sounds, abdomen soft and nontender. Genito Urinary: Genital exam not performed since complaints not related. Rectal: Rectal exam not performed since no symptoms indicated blood loss. Extremities: No cyanosis or clubbing. Musculoskeletal: 5/5 strength, normal range of motion, no swollen or erythematous joints. Neurological: Moves all 4 extremities. No myoclonus. Discharge Data Studies Completed and Pending Completed Studies During Hospitalization Category Date Time Status CT angio chest PE protcl [id number] Stat Cat Scan 03/05/22 13:55 Completed XR chest 1V portable [id number] Stat Exams 03/05/22 12:34 Completed US echo complete [CV. echo complete* [id number]] Routine Ultrasound 03/06/22 09:53 Completed Pending at discharge Category Date Time Status Blood Culture Stat Lab 03/05/22 15:00 Results Sputum Culture and Gram Stain Stat Lab 03/05/22 14:45 Uncollected Radiology Impressions Chest X-Ray 03/05/22 12:34 IMPRESSION: Prominent area of consolidation in the mid left lung extending from the hilar region with possible cavitary focus. Recommend CT imaging correlation for further assessment cannot rule out endobronchial neoplasm or other cause for bronchial obstruction. Chest CTA 03/05/22 13:55 IMPRESSION: 1. No pulmonary embolism. 2. Dense area of consolidation with adjacent groundglass attenuation and air bronchograms in the lingula. Additional smaller subsegmental opacifications at the lung bases. Consistent with pneumonia. Recommend follow-up to resolution. 3. Reactive mediastinal and hilar lymph nodes. 4. LEFT adrenal mass, indeterminate. Adrenal mass CT protocol is recommended after the patient recovers from the subacute pneumonia. Laboratory Results WBC 12.4 10^3/uL (4.0-10.0) H 03/07/22 04:37 RBC 4.05 10^6/uL (4.1-5.3) L 03/07/22 04:37 Hgb 12.1 g/dL (11.7-16.6) 03/07/22 04:37 Hct 37.1 % (42.0-52.0) L 03/07/22 04:37 MCV 91.6 fl (80-94) 03/07/22 04:37 MCH 29.9 pg (28.0-34.0) 03/07/22 04:37 MCHC 32.6 g/dL (30.0-36.0) 03/07/22 04:37 RDW 14.3 % (12.1-15.1) 03/07/22 04:37 Plt Count 301 10^3/cmm (130-400) 03/07/22 04:37 MPV 10.5 fL (7.4-10.4) H 03/07/22 04:37 Neut % (Auto) 77.8 % 03/07/22 04:37 Lymph % (Auto) 9.7 % 03/07/22 04:37 [place] % (Auto) 4.0 % 03/07/22 04:37 Eos % (Auto) 0.0 % 03/07/22 04:37 Baso % (Auto) 0.2 % 03/07/22 04:37 Neut # (Auto) 9.62 10^3/uL (1.8-7.7) H 03/07/22 04:37 Lymph # (Auto) 1.2 10^3/uL (0.8-4.8) 03/07/22 04:37 [place] # (Auto) 0.5 10^3/uL (0.2-0.9) 03/07/22 04:37 Eos # (Auto) 0.0 10^3/uL (0.0-0.8) 03/07/22 04:37 Baso # (Auto) 0.0 10^3/uL (0.0-0.1) 03/07/22 04:37 Nucleated RBC % (auto) 0 % 03/07/22 04:37 Nucleated RBCs # 0.0 /100WBC 03/07/22 04:37 D-Dimer 2.81 ug/mIFEU (0-0.59) H 03/06/22 03:09 Specimen Type Arterial 03/05/22 16:50 Sample Site Radial, right 03/05/22 16:50 ABG pH 7.42 (7.35-7.45) 03/05/22 16:50 ABG pCO2 30.7 mmHg (35-45) L 03/05/22 16:50 ABG pO2 84.7 mmHg (80.0-100.0) 03/05/22 16:50 ABG HCO3 19.7 mmol/L (22-26) L 03/05/22 16:50 ABG Base Excess -3.8 mmol/L (-2.0-2.0) L 03/05/22 16:50 Rai Test Pos 03/05/22 16:50 Hematocrit 39.7 % (42-52) L 03/05/22 16:50 O2 Delivery Device Nc 03/05/22 16:50 O2 Liters/Min 3.0 % 03/05/22 16:50 FiO2 32.0 % 03/05/22 16:50 Hide Splitter ID Gd 03/05/22 16:50 Sodium 134 mmol/L (136-145) L 03/07/22 04:37 Potassium 5.0 mmol/L (3.5-5.1) 03/07/22 04:37 Chloride 103 mmol/L (98-107) 03/07/22 04:37 Carbon Dioxide 20 mmol/L (22-29) L 03/07/22 04:37 Anion Gap 16.0 (5-19) 03/07/22 04:37 BUN 36 mg/dL (8-23) H 03/07/22 04:37 Creatinine 1.0 mg/dL (0.7-1.2) 03/07/22 04:37 GFR Calculation 74.1 mL/min (90-130) L 03/07/22 04:37 Glucose 273 mg/dL (65-115) H 03/07/22 04:37 POC Glucose 334 mg/dL (70-110) H 03/07/22 06:23 Calculated Osmolality 291 mOsm/kg (285-295) 03/06/22 03:09 Calcium 8.9 mg/dL (8.5-10.5) 03/07/22 04:37 Phosphorus 4.2 mg/dL (2.5-4.5) 03/07/22 04:37 Magnesium 2.3 mg/dL (1.7-2.3) 03/06/22 03:09 Total Bilirubin 0.3 mg/dL (0.15-1.2) 03/06/22 03:09 AST 23 U/L (0-40) 03/06/22 03:09 ALT 60 U/L (0-41) H 03/06/22 03:09 Alkaline Phosphatase 96 U/L (40-130) 03/06/22 03:09 Total Protein 6.6 g/dL (6.6-8.7) 03/06/22 03:09 Albumin 3.3 g/dL (3.5-5.2) L 03/07/22 04:37 Globulin 3.6 g/dL (1.3-4.6) 03/06/22 03:09 Procalcitonin 0.97 ng/mL (0-0.5) H 03/06/22 03:09 Coronavirus 229E (PCR) Not detected (NOT DETECT) 03/05/22 19:32 Influenza Type A Ag negative (Negative) 03/06/22 00:00 Influenza Type B Ag negative (Negative) 03/06/22 00:00 SARS-CoV-2 (PCR) Not detected (NOT DETECT) 03/05/22 19:32 Vitals Last Vital Signs Temp 98 F 03/05/22 23:25 Pulse 80 03/07/22 07:41 Resp 18 03/07/22 07:41 BP 150/99 03/07/22 04:00 Pulse Ox 92 03/07/22 07:41 O2 Del Method 03/07/22 07:41 O2 Flow Rate 1 03/07/22 07:35 Discharge Plan Discharge Patient Disposition: Home Condition: Stable Prescriptions: New metoprolol tartrate 50 mg Tablet 50 mg PO BID@0900,2100 30 Days Qty: 60 0RF prednisone 20 mg tablet 40 mg PO DAILY 5 Days Qty: 10 0RF levofloxacin 750 mg tablet 750 mg PO DAILY 7 Days Qty: 7 0RF Continued albuterol sulfate 90 mcg/actuation HFA aerosol inhaler 1 inh inhalation QID PRN (Reason: shortness of breath or wheezing) ascorbate calcium (vitamin C) 500 mg tablet 500 mg PO DAILY cholecalciferol (vitamin D3) 25 mcg (1,000 unit) capsule 25 mcg PO DAILY fluticasone propion-salmeterol [Advair Diskus] 500-50 mcg/dose blister with device 1 inh INHALATION BID aspirin [Adult Low Dose Aspirin] 81 mg tablet,delayed release (DR/EC) 81 mg PO QPM lisinopril 40 mg tablet 80 mg PO DAILY metformin 1,000 mg tablet 1,000 mg PO BID red yeast rice 600 mg capsule 1,200 mg PO DAILY Rx Instructions: give with meal/snack nifedipine 30 mg tablet extended release 30 mg PO DAILY Fish Oil Concentrate 1,000 mg Capsule 1,000 mg PO BID Discharge Orders: Discharge Order (Routine); Ordered 03/07/22 Ordered By: Garfield Swanson Referrals: [facility] [Provider Group] - 4-7 days Michael Perkins, [Primary Care Provider] - Discharge Diet: Advance as tolerated, Cardiac and Low Salt Discharge Activity: Resume usual activity and Increase activity as tolerated Patient Instructions: Opioid Safety Activity Restrictions/Additional Instructions: 1. Take medications as prescribed. 2. Follow up with primary care provider within one week. Discharge Attestations Time Spent in Discharge Care*: greater than 30 min Status at Discharge: Overall status at discharge: patient is progressing back to baseline Quality Metrics Clinical Quality Measures [ No reported AMI, CVA or VTE this stay] Coding Level of Care Code Acute [facility] FW NM note Diagnoses Obstructive sleep apnea G47.33 Atrial fibrillation I48.91 Hypertension I10 Hypertension type: primary hypertension Diabetes E11.65 Diabetes mellitus type: type 2 Diabetes mellitus senior care insulin use: without senior care use Diabetes mellitus complication status: with hyperglycemia COPD (chronic obstructive pulmonary disease) J44.9 Asthma J45.51 Asthma severity: severe Asthma persistence: persistent Asthma complication type: with acute exacerbation Atherosclerosis of coronary artery of [place] heart without angina pectoris I25.10 Coronary Disease-Associated Artery/Lesion type: [place] artery Benign essential HTN I10 Dyslipidemia E78.5 Hx of CABG Z95.1 Community acquired pneumonia J18.9 Laterality: left Lung location: lower lobe of lung Awavz-6-opahcmpuoki deficiency E88.01
[2022-03-07] MEDS: metoprolol tartrate 50 mg Tablet PO (09:18)
[2022-03-07] MEDS: lisinopril 20 mg Tablet 40 MG PO (09:18)
--- NOTE | 2022-03-07 14:52 | PC.NURSE ---
Patient was discharged at 1447 via wheelchair to surgical services entrance where was waiting in car. Ordered oxygen was sent to patients home and received instructions. brought oxygen with her to the hospital. Patient given full discharge instructions and education and verbalized understanding.
== END 2022-03-07 14:52 | disposition home or self-care (01) | DRG 190 ==
LOC: ER 16:02 → CSU 17:29
PROVIDERS: Emergency Medicine; Internal Medicine; Admitting Provider Hospitalist; Emergency Provider Family Medicine; PCP Emergency Medicine Emergency Medical Services; Visit Provider Internal Medicine
DX: J44.0 Chronic obstructive pulmonary disease with (acute) lower respiratory infection (principal); J18.9 Pneumonia, unspecified organism; J45.51 Severe persistent asthma with (acute) exacerbation; J44.1 Chronic obstructive pulmonary disease with (acute) exacerbation; G47.33 Obstructive sleep apnea (adult) (pediatric); I48.91 Unspecified atrial fibrillation; I10 Essential (primary) hypertension; E11.65 Type 2 diabetes mellitus with hyperglycemia; I25.10 Atherosclerotic heart disease of native coronary artery without angina pectoris; Z95.1 Presence of aortocoronary bypass graft; E78.5 Hyperlipidemia, unspecified; E88.01 Alpha-1-antitrypsin deficiency; E66.9 Obesity, unspecified; Z68.29 Body mass index [BMI] 29.0-29.9, adult; Z79.51 Long term (current) use of inhaled steroids; Z79.82 Long term (current) use of aspirin; Z79.84 Long term (current) use of oral hypoglycemic drugs; Z88.2 Allergy status to sulfonamides; Z77.090 Contact with and (suspected) exposure to asbestos; D35.01 Benign neoplasm of right adrenal gland; Z91.199 Patient's noncompliance with other medical treatment and regimen due to unspecified reason
CPT/HCPCS: 36415; 36416; 36600; 71045; 71275; 80053; 80069; 82803; 82962; 83735; 84100; 84145; 85025; 85378; 87040; 87449; 87635; 87641; 87804; 93005; 93306; 94640; 94664; 94760; 96365; 96372; 96375; 99285; J1650; J1815; J1956; J2543; J2920; J2930; J3480; J3490; Q9967

== ENCOUNTER → 2022-05-10 12:49 | Outpatient (BNVA) | payer OTHER, SELFPAY | PROVIDERS: PCP Emergency Medicine Emergency Medical Services; Visit Provider Internal Medicine Cardiovascular Disease | DX: R06.02 Shortness of breath (principal); I48.91 Unspecified atrial fibrillation; I25.10 Atherosclerotic heart disease of native coronary artery without angina pectoris; I10 Essential (primary) hypertension; E78.5 Hyperlipidemia, unspecified | CPT/HCPCS: 36415; 80048; 83880; 99214 ==

== ENCOUNTER 2022-07-09 06:09 | Outpatient (CLI) | payer OTHER, SELFPAY ==
--- NOTE | 2022-07-09 06:30 | USCV_ITS ---
Sourav Anders Age: 67 Gender: M : 1955 Exam Date: 07/09/2022 06:43 Ordering Phys: Mary Read MD ([email or web address]) Technologist: [place] [facility] [place]ication: ef BP: 140 / 82 HR: 74 Rhythm: Sinus Technical Quality: Adequate MEASUREMENTS (Male / Female) Normal Values 2D ECHO LV Ejection Fraction MOD 2C 63.4 % LV Ejection Fraction 2C AL 63.0 % FINDINGS Left Ventricle Normal left ventricular size and systolic function, EF 64 %. No regional wall motion abnormalities. Right Ventricle Normal right ventricular size and systolic function. Right Atrium Normal right atrial size. Left Atrium Normal left atrial size. Mitral Valve Thickened mitral valve. Aortic Valve Thickened aortic valve. Tricuspid Valve No gross abnormalities noted Pulmonic Valve No gross abnormalities noted Pericardium No pericardial effusion. Aorta Normal aortic annulus size. IVC Inferior vena cava not visualized. CONCLUSIONS Normal left ventricular size and systolic function, EF 64 %. No regional wall motion abnormalities. There is no pericardial effusion. There are no intracardiac masses. Comparison with the previous study is difficult because of the difference in the technical quality. Dr Mary Read MD [facility] (Electronically Signed) Final Date: 12 July 2022 01:11 S
[2022-07-09] MEDS: perflutren protein-a microsphr 0.22 mg/mL SDV 3 mL IV (07:25)
== END 2022-07-09 06:10 | disposition home or self-care (01) ==
LOC: RAD 06:10
PROVIDERS: PCP Emergency Medicine Emergency Medical Services; Visit Provider Internal Medicine Cardiovascular Disease
DX: I48.91 Unspecified atrial fibrillation (principal)
CPT/HCPCS: C8924; Q9956

== ENCOUNTER → 2022-10-30 12:55 | Outpatient (BNVA) | payer OTHER, SELFPAY | PROVIDERS: PCP Emergency Medicine Emergency Medical Services; Visit Provider Internal Medicine Cardiovascular Disease | DX: I25.10 Atherosclerotic heart disease of native coronary artery without angina pectoris (principal); I10 Essential (primary) hypertension; E11.65 Type 2 diabetes mellitus with hyperglycemia; G47.33 Obstructive sleep apnea (adult) (pediatric); J44.9 Chronic obstructive pulmonary disease, unspecified | CPT/HCPCS: 99214 ==

== ENCOUNTER 2022-11-20 07:49 | Outpatient (CLI) | payer OTHER, SELFPAY ==
--- NOTE | 2022-11-20 07:57 | CT_ITS ---
WS: [id number] CT adrenals with and without contrast. HISTORY: OTHER SPECIFIED DISORDERS OF ADRENAL GLAND Noncontrast 2 mm imaging is performed through the abdomen with attention to the adrenal glands. Addit ional 1 minute and 15 minute delayed images are then performed through the adrenal glands. CONTRAST: Omnipaque 350; 95 mL IV. DLP: 1620.[address] scans at [facility] use at least one of these dose optimization techniques: automated e xposure control; mA and/or kV adjustment per patient size (includes targeted exams where dose is matc hed to clinical indication); or iterative reconstruction. COMPARISON: 03/05/2022 Lower thorax: Chronic emphysema with areas of scarring. No pulmonary mass or nodules. Heart size is s lightly enlarged. Small hiatal hernia. Liver: Normal. No intrahepatic dilatation. Gallbladder: Normal. Pancreas: Normal. Spleen: Normal. ADRENAL GLANDS. RIGHT: Well-circumscribed mass associated with the right adrenal gland. Mass measures 2.5 x 3.3 cm an d is unchanged as compared to 03/05/2022. Noncontrast imaging does not confirm benign lipoma. After pe rforming washout values, both absolute and relative values were obtained. Both the relative and absol asa values confirm this is most consistent with a benign adenoma. LEFT: Normal. Right kidney: Normal. Left kidney: Normal size kidney. Prominent calyx central kidney. No identified mass. No obstruction. Aorta: 2 GI tract: As visualized stomach is normal. No small bowel obstruction. Scattered diverticula in the t ransverse and proximal descending colon. No adenopathy or free fluid. Abdominal wall: No hernia. Visualized osseous structures: Unremarkable. IMPRESSION: 1. Stable right adrenal mass measuring 2.5 x 3.3 cm. Absolute washout and relative washout values con firm this is most consistent with a benign adenoma. 2. Mild cardiomegaly. 3. Mild atherosclerosis aorta.
[2022-11-20 08:32] LABS: Blood Urea Nitrogen 15 mg/dL (8-23); Glomerular Filtration Rate 95.8 mL/min (90-130)
[2022-11-20] MEDS: iohexol 350 mg/mL 500 mL Btl (per mL) IV (08:42)
== END 2022-11-20 07:50 | disposition home or self-care (01) ==
PROVIDERS: PCP Family Medicine; Visit Provider Family Medicine
DX: E27.8 Other specified disorders of adrenal gland (principal); I51.7 Cardiomegaly; I70.0 Atherosclerosis of aorta
CPT/HCPCS: 74170; 82565; 84520; Q9967

== ENCOUNTER → 2023-01-09 10:24 | Outpatient (BNVA) | payer OTHER, SELFPAY | PROVIDERS: PCP Family Medicine; Referring Provider Family Medicine; Visit Provider Internal Medicine | DX: E27.8 Other specified disorders of adrenal gland (principal); I10 Essential (primary) hypertension; E11.65 Type 2 diabetes mellitus with hyperglycemia; E78.5 Hyperlipidemia, unspecified; Z95.1 Presence of aortocoronary bypass graft; I25.10 Atherosclerotic heart disease of native coronary artery without angina pectoris | CPT/HCPCS: 36415; 80053; 80061; 82044; 82088; 83036; 84244 ==

== ENCOUNTER 2023-03-11 09:20 | Outpatient (CLI) | payer OTHER, SELFPAY ==
[2023-03-11 11:21] LABS: Urine Creatinine 73 mg/dL (39-259)
[2023-03-11 12:00] LABS: Total Volume Urine 2900 ml
[2023-03-14 21:05] LABS: Calculated Total (E+NE) 82 mcg/24 h (26-121)
[2023-03-19 12:38] LABS: Free Cortisol Urine 35.9 mcg/24 h (4.0-50.0); Total Urine 2900 mL; Urine Creatinine 1.93 g/24 h (0.50-2.15)
== END 2023-03-11 09:21 | disposition home or self-care (01) ==
LOC: LAB 09:23
PROVIDERS: PCP Family Medicine; Visit Provider Internal Medicine
DX: E27.8 Other specified disorders of adrenal gland (principal)
CPT/HCPCS: 82384; 82530; 82570

== ENCOUNTER 2023-04-05 13:45 | Outpatient (CLI) | payer OTHER, SELFPAY ==
--- NOTE | 2023-04-05 14:30 | CT_ITS ---
WS: [id number] CT chest wo con [id number] HISTORY: annual f/u TECHNIQUE: Axial imaging performed through the thorax. Coronal and sagittal reformats are submitted. All CT scans at [facility] use at least one of these dose optimization techniques: automated exposure control; mA and/or kV adjustment per patient size (includes targeted exams where dose is mat ched to clinical indication); or iterative reconstruction. CONTRAST: None DLP: 501.66 mGy.cm COMPARISON: 11/18/2022 and 03/05/2022 Lungs and central airway: Hyperinflated lungs with chronic emphysema. Bronchiectasis in the lower yanely g albright. Dense consolidation in the lingula has improved. There are no masses or worsening consolida tions. Pleura: Normal. No pleural effusion. Heart and pericardium: Normal size heart with no pericardial effusion. Prior CABG. Mediastinum and josh: No adenopathy. Vessels: Normal size aortic and pulmonary artery. No coronary artery calcifications. Chest wall and lower neck: Prior median sternotomy. Upper abdomen: Well-circumscribed RIGHT adrenal mass measures 3.0 x 2.3 cm. Consistent with a benign adenoma as noted on a dedicated adrenal mass CT protocol. Osseous structures: Increase in thoracic kyphosis. IMPRESSION: 1. Improved aeration throughout both lungs since 03/05/2022. 2. Bilateral lower lobe bronchiectasis and chronic emphysema. 3. Stable RIGHT adrenal mass consistent with an adenoma. 4. Prior CABG.
== END 2023-04-05 13:46 | disposition home or self-care (01) ==
LOC: RAD 13:45
PROVIDERS: PCP Family Medicine; Visit Provider Internal Medicine Pulmonary Disease
DX: E88.01 Alpha-1-antitrypsin deficiency (principal); J44.9 Chronic obstructive pulmonary disease, unspecified; R06.02 Shortness of breath; J47.9 Bronchiectasis, uncomplicated; J43.9 Emphysema, unspecified; E27.9 Disorder of adrenal gland, unspecified; Z95.1 Presence of aortocoronary bypass graft
CPT/HCPCS: 71250

== ENCOUNTER 2023-04-17 08:41 | Outpatient (CLI) | payer MEDICARE, SELFPAY ==
[2023-04-17 09:04] VITALS: PULSE 86; RESP 18; O2SAT 98
[2023-04-17] MEDS: albuterol 2.5 mg/3 mL Neb INHALATION (09:04)
[2023-04-17 09:09] VITALS: PULSE 82
== END 2023-04-17 08:42 | disposition home or self-care (01) ==
PROVIDERS: PCP Family Medicine; Visit Provider Internal Medicine Pulmonary Disease
DX: R06.02 Shortness of breath (principal); R06.09 Other forms of dyspnea; R94.2 Abnormal results of pulmonary function studies
CPT/HCPCS: 94060; 94618; 94726; 94729; J7613

== ENCOUNTER → 2023-05-02 07:50 | Outpatient (BNVA) | payer OTHER, MEDICARE, SELFPAY | PROVIDERS: PCP Family Medicine; Visit Provider Internal Medicine Pulmonary Disease | DX: J45.51 Severe persistent asthma with (acute) exacerbation (principal); Z95.1 Presence of aortocoronary bypass graft; I25.10 Atherosclerotic heart disease of native coronary artery without angina pectoris; J43.2 Centrilobular emphysema; E88.01 Alpha-1-antitrypsin deficiency; G47.33 Obstructive sleep apnea (adult) (pediatric); Z77.090 Contact with and (suspected) exposure to asbestos; I10 Essential (primary) hypertension | CPT/HCPCS: 99214 ==

== ENCOUNTER 2024-08-27 09:32 | Observation (INO) | payer OTHER, MEDICARE, SELFPAY ==
[2024-08-27] VITALS (12 sets, daily range): BP systolic 142–188; BP diastolic 85–104; PULSE 66–89; RESP 14–26; TEMP 36.7–36.9; O2SAT 93–96; BMI 30.4
--- NOTE | 2024-08-27 09:36 | CT_ITS ---
WS: [email or web address] CT scan of the head, 08/27/2024 Clinical Data: Symptoms of acute stroke Comparison: None. DLP: 1207.[address] scans at [facility] use at least one of these dose optimization techniques: automated exposure control; mA and/or kV adjustment per patient size (includes targeted exams where dose is matched to clinical indication); or iterative reconstruction. Findings: The ventricular system is moderately dilated without shift. The sulci are prominent. No recent infarct or hemorrhage is seen. There are no abnormal intracerebral masses. The cerebellum and brainstem are not remarkable. Bony windows of the skull and skull base show no fractures or erosions. The mastoid air cells, internal auditory canals, sella turcica, intraorbital contents, and paranasal sinuses are unremarkable. CT/CT head thrombolytic 11319 Impression: 1. Negative for recent infarct or hemorrhage. 2. Moderate cerebral atrophy.
--- NOTE | 2024-08-27 09:39 | CT_ITS ---
WS: [email or web address] CTA scan of the head and neck. Additional two-dimensional coronal and sagittal reconstruction along with MIP images was performed. 08/27/2024 Clinical Data: acute CVA Comparison: None. DLP: 1729.[address] scans at [facility] use at least one of these dose optimization techniques: automated exposure control; mA and/or kV adjustment per patient size (includes targeted exams where dose is matched to clinical indication); or iterative reconstruction. Findings: The carotid arteries bifurcate normally into the internal carotid arteries. There is calcification at both bifurcations without significant narrowing. The vertebral arteries are patent. There is no lymphadenopathy within the neck. The intracerebral circulation shows that the internal carotid arteries bifurcate into the anterior and middle cerebral arteries. The basilar arterial system is normal. No aneurysms are seen. There is no prevertebral soft tissue swelling. The cervical spine shows osteoarthritis and degenerative disc narrowing. The intraorbital contents, paranasal sinuses, internal auditory canals and sella turcica are normal. The parotid glands are normal. The parapharyngeal areas are unremarkable. The larynx is symmetrical. The thyroid gland shows normal enhancement. CT/CT angio headneck* [id number] Impression: 1. Normal common carotid and internal carotid circulation in the neck with mini mal narrowing from carotid calcification and stenosis at the bifurcations. 2. Normal vertebral artery circulation. 3. Normal intracerebral circulation with no evidence of stenosis or obstruction of the intracerebral circulation.
--- NOTE | 2024-08-27 09:40 | W.ED.NEUROSD ---
HPI - Neuro Symptoms/Deficit General: Chief Complaint: Neuro Symptoms/Deficit Stated Complaint: stroke like symptoms Time Seen by Provider: 08/27/24 09:36 History of Present Illness: 69-year-old male presents to the emergency room with complaints of left-sided weakness when he first woke up this morning mild left-sided facial droop as well. Has a history of hypertension no history of coronary artery disease or previous stroke. Last known well was midnight he presents here this morning at 930. He still has residual deficits initial NIH is 6 with ataxia in the left arm and leg weakness in the left arm and leg and arm drift slight decrease sensation as well. Associated symptoms: Deny chest pain Related Data Home Medications ?Medication ?Instructions ?Recorded ?Confirmed ascorbate calcium (vitamin C) 500 500 mg PO DAILY 09/29/19 05/02/23 mg tablet aspirin 81 mg tablet,delayed 81 mg PO QPM 09/29/19 05/02/23 release (Adult Low Dose Aspirin) cholecalciferol (vitamin D3) 25 25 mcg PO DAILY 09/29/19 05/02/23 mcg (1,000 unit) capsule lisinopril 40 mg tablet 80 mg PO DAILY 09/29/19 05/02/23 red yeast rice 600 mg capsule 1,200 mg PO DAILY 09/29/19 05/02/23 albuterol sulfate 90 mcg/actuation 1 inh inhalation QID PRN shortness 12/26/20 05/02/23 aerosol inhaler of breath or wheezing omega-3 fatty acids 1,000 mg 1,000 mg PO BID 03/05/22 05/02/23 capsule beet root tablet PO 10/30/22 05/02/23 elderberrry tablet PO 10/30/22 05/02/23 Previous Rx's ?Medication ?Instructions ?Recorded nifedipine 30 mg tablet,extended 60 mg (2 x 30 mg) PO DAILY #180 05/29/22 release tabs hydralazine 50 mg tablet 50 mg PO BID #60 tabs 10/30/22 budesonide 160 mcg-glycopyr 9 2 inh inhalation BID #10.7 grams 05/02/23 mcg-formot 4.8 mcg/actuation HFA inhaler (Breztri Aerosphere) Allergies Allergy/AdvReac Type Severity Reaction Status Date / Time Sulfa (Sulfonamide Allergy Severe Night Verified 05/02/23 08:10 Antibiotics) Sweats and Neck Pain atorvastatin Allergy myalgia Verified 05/02/23 08:10 budesonide (From Symbicort) Allergy ALGY-Difficulty Verified 05/02/23 08:10 Breathing formoterol (From Symbicort) Allergy ALGY-Difficulty Verified 05/02/23 08:10 Breathing lovastatin Allergy myalgia Verified 05/02/23 08:10 metoprolol Allergy ALGY-Hives Verified 05/02/23 08:10 pravastatin Allergy myalgia Verified 05/02/23 08:10 simvastatin Allergy myalgia Verified 05/02/23 08:10 theophylline (From Damian-Dur) Allergy ALGY-Hives Verified 05/02/23 08:10 Review of Systems Const: Denies: fever(s) or chills Card: Denies: chest pain Resp: Denies: dyspnea GI: Denies: abdominal pain : Denies: dysuria, urinary frequency or urinary urgency Musc: Denies: neck pain or back pain Skin/Breast: Denies: rash PFSH ED PFSH: Medical History Multiple environmental allergies Obstructive sleep apnea by sleep study, intolerant to CPAP Benign neoplasm of adrenal gland Kuosd-6-ucsikffvbaj deficiency Phenotype MZ Obesity CAD (coronary artery disease) 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 Asthma COPD (chronic obstructive pulmonary disease) no smoking history Hyperlipidemia Diabetes Hypertension Surgical History History of colonoscopy 2019 screening study, sigmoid diverticulosis, intramuscular lipoma left lower abdominal wall, 10 yr follow up H/O heart bypass surgery (~2017) 3 vessel, [place], H/O inguinal hernia repair H/O umbilical hernia repair Family History Father Diabetes Lung disease Brother Suicide Other Cancer Denies family history of CAD (coronary artery disease) Clotting disorder Dementia Chronic kidney disease (CKD) Anesthesia complication Bleeding disorder Stroke Social History Smoking and tobacco/nicotine status: never used tobacco/nicotine Alcohol intake: current Alcohol intake frequency: holidays/special occasions only Substance/Drug Use: never Household members: spouse Marital status: Current occupational status: employed 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 NIH stroke score NIHSS: Level Of Consciousness - 1a: 0 Level Of Consciousness Questions - 1b: Both Correct Level Of Consciousness Commands - 1c: Both Correct Best Gaze - 2: Normal Visual Powers - 3: No Visual Loss Facial Palsy - 4: Minor Paralysis Motor Arm Right - 5: No Drift Motor Arm Left - 5: Drift Motor Leg Right - 6: No Drift Motor Leg Left - 6: Drift Limb Ataxia - 7: Present In Two Limbs Sensory - 8: Mild To Moderate Loss Best Language - 9: No Aphasia Dysarthia - 10: Normal Extinction And Inattention - 11: 0 Score: Total Score: 6 Physical Exam Const: COMMON NORMALS: no acute distress GENERAL APPEARANCE: cooperative and comfortable ORIENTATION/CONSCIOUSNESS: Yes awake, Yes oriented to person, Yes oriented to place and Yes oriented to time HENMT: COMMON NORMALS: normocephalic, atraumatic and hearing grossly normal bilaterally HEAD & SCALP: normocephalic and atraumatic Resp: COMMON NORMALS: normal respiratory effort, No retractions, No use of accessory muscles and clear to auscultation bilaterally AUSCULTATION: clear to auscultation bilaterally Cardio: COMMON NORMALS: regular rate, regular rhythm and No murmurs present (Cardio) RATE: regular rate RHYTHM: regular rhythm GI: COMMON NORMALS: Soft to palpation and No hepatosplenomegaly present AUSCULTATION: Yes normoactive bowel sounds PALPATION: Yes Soft to palpation, No Tenderness to palpation present (GI), No Guarding due to palpation present (GI) and Yes No hepatosplenomegaly present Neuro: SENSORIUM/ORIENTATION: Yes oriented to person, Yes oriented to place and Yes oriented to time Skin: COMMON NORMALS: no rashes or lesions noted GENERAL SKIN EXAM: no rashes or lesions noted Course Vital Signs: Vital signs: Vital Signs Temperature 98.0 F 08/27/24 09:52 Pulse Rate 76 08/27/24 09:55 Respiratory Rate 18 08/27/24 09:52 Blood Pressure 149/88 08/27/24 09:55 Pulse Oximetry 95 08/27/24 09:55 Oxygen Delivery Me thod Room Air 08/27/24 09:52 MDM - Neuro Symptoms/Deficit Medical Decision Making Acute CVA outside the window for any thrombolytics no evidence of large vessel occlusion. Discussed with Dr. Burnham she concurs patient is having some improvement his facial droop has begun to improve some and he is able to manipulate with his left hand better he still weak but his ataxia has improved some. Discussed with hospitalist will admit. Orders written. Lab Data 08/27/24 09:58 08/27/24 09:[address] 08/27/24 09:36 Impression: 1. Negative for recent infarct or hemorrhage. 2. Moderate cerebral atrophy. Head/Neck CTA 08/27/24 09:39 Impression: 1. Normal common carotid and internal carotid circulation in the neck with minimal narrowing from carotid calcification and stenosis at the bifurcations. 2. Normal vertebral artery circulation. 3. Normal intracerebral circulation with no evidence of stenosis or obstruction of the intracerebral circulation. Laboratory Results WBC 7.59 10^3/uL (3.29-11.43) 08/27/24 09:58 RBC 4.37 10^6/uL (3.85-5.65) 08/27/24 09:58 Hgb 13.10 g/dL (11.27-16.99) 08/27/24 09:58 Hct 40.1 % (37-53) 08/27/24 09:58 MCV 91.8 fl (82-101) 08/27/24 09:58 MCH 30.0 pg (27-33) 08/27/24 09:58 MCHC 32.7 g/dL (30-55) 08/27/24 09:58 RDW 13.8 % (12.1-15.1) 08/27/24 09:58 Plt Count 166 10^3/cmm (157-399) 08/27/24 09:58 MPV 10.3 fL (7.4-10.4) 08/27/24 09:58 Neut % (Auto) 71.8 % 08/27/24 09:58 Lymph % (Auto) 19.9 % 08/27/24 09:58 [place] % (Auto) 6.1 % 08/27/24 09:58 Eos % (Auto) 1.3 % 08/27/24 09:58 Baso % (Auto) 0.5 % 08/27/24 09:58 Neut # (Auto) 5.45 10^3/uL (1.8-7.7) 08/27/24 09:58 Lymph # (Auto) 1.5 10^3/uL (0.8-4.8) 08/27/24 09:58 [place] # (Auto) 0.5 10^3/uL (0.2-0.9) 08/27/24 09:58 Eos # (Auto) 0.1 10^3/uL (0.0-0.8) 08/27/24 09:58 Baso # (Auto) 0.0 10^3/uL (0.0-0.1) 08/27/24 09:58 Nucleated RBC % (auto) 0 % 08/27/24 09:58 Nucleated RBCs # 0.0 /100WBC 08/27/24 09:58 PT 13.30 SECONDS (12.1-14.9) 08/27/24 09:58 INR 0.95 (0.8-1.2) 08/27/24 09:58 APTT 22.4 SECONDS (23.9-36.7) L 08/27/24 09:58 Sodium 135 mmol/L (136-145) L 08/27/24 09:58 Potassium 3.5 mmol/L (3.5-5.1) 08/27/24 09:58 Chloride 98 mmol/L (98-107) 08/27/24 09:58 Carbon Dioxide 24 mmol/L (22-29) 08/27/24 09:58 Anion Gap 16.5 (5-19) 08/27/24 09:58 BUN 21 mg/dL (8-23) 08/27/24 09:58 Creatinine 0.8 mg/dL (0.7-1.2) 08/27/24 09:58 GFR Calculation Not Reportable 08/27/24 09:58 Glucose 192 mg/dL (65-115) H 08/27/24 09:58 POC Glucose 202 mg/dL (70-110) H 08/27/24 09:38 Calculated Osmolality 288 mOsm/kg (285-295) 08/27/24 09:58 Calcium 8.2 mg/dL (8.5-10.5) L 08/27/24 09:58 Total Bilirubin 0.6 mg/dL (0.15-1.2) 08/27/24 09:58 AST 29 U/L (0-40) 08/27/24 09:58 ALT 31 U/L (0-41) 08/27/24 09:58 Alkaline Phosphatase 67 U/L (40-130) 08/27/24 09:58 Total Protein 6.2 g/dL (6.6-8.7) L 08/27/24 09:58 Albumin 4.0 g/dL (3.5-5.2) 08/27/24 09:58 Globulin 2.2 g/dL (1.3-4.6) 08/27/24 09:58 Urine Color Yellow (Yellow) 08/27/24 10:25 Urine Appearance Clear (CLEAR) 08/27/24 10:25 Urine pH 8.0 (5-7) A 08/27/24 10:25 Ur Specific [place] 1.023 (1.005-1.030) 08/27/24 10:25 Urine Protein Negative (Negative) 08/27/24 10:25 Urine Glucose (UA) Trace (Normal) H 08/27/24 10:25 Urine Ketones Negative (Negative) 08/27/24 10:25 Urine Blood Negative (Negative) 08/27/24 10:25 Urine Nitrate Negative (Negative) 08/27/24 10:25 Urine Bilirubin Negative (Negative) 08/27/24 10:25 Urine Urobilinogen 0.2 mg/dL (Negative) 08/27/24 10:25 Ur Leukocyte Esterase Negative (Negative) 08/27/24 10:25 Urine RBC 0-2 /hpf (0-2) 08/27/24 10:25 Urine WBC 0-5 /hpf (0-5) 08/27/24 10:25 Ur Squamous Epith Cells 0-5 /hpf (0-5) 08/27/24 10:25 Amorphous Sediment Not Reportable 08/27/24 10:25 Urine Bacteria None seen /hpf (NONE) 08/27/24 10:25 Hyaline Casts 0.81 /lpf 08/27/24 10:25 Urine Opiates Screen Negative ng/mL (Negative) 08/27/24 10:25 Ur Barbiturates Screen Negative ng/mL (Negative) 08/27/24 10:25 Ur Phencyclidine Scrn Negative ng/mL (Negative) 08/27/24 10:25 Ur Amphetamines Screen Negative ng/mL (Negative) 08/27/24 10:25 U Benzodiazepines Scrn Negative ng/mL (Negative) 08/27/24 10:25 Urine Cocaine Screen Negative ng/mL (Negative) 08/27/24 10:25 U Marijuana (THC) Screen Negative ng/mL (Negative) 08/27/24 10:25 All radiology interpretation(s) finalized by discharge Discharge Plan Discharge Patient Disposition: Admitted As Inpatient Admit Provider: Grady Alonso Clinical Impression: Cerebrovascular accident, Benign essential HTN, Hyxgt-7-vhxnqdawhwe deficiency Condition: Stable Coding Level of Care Code ED 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
[2024-08-27 09:41] LABS: Glucose Point of Care 202 mg/dL (70-110)
--- NOTE | 2024-08-27 09:54 | ECG_ITS ---
[facility]: 2024-08-27 Pat Name: Sourav Anders Department: Room: Gender: Male Manager Store: : 1955 Requested By: Jordan Olson Order Number: [id number] Peterson MD: Dipak Tidwell M.D. Measurements Intervals [place] Rate: 72 P: 58 OK: 166 QRS: 48 QRSD: 107 T: 64 QT: 408 QTc: 448 Interpretive Statements SINUS RHYTHM NONSPECIFIC T-WAVE ABNORMALITY Compared to ECG 03/05/2022 23:38:16 Atrial fibrillation no longer present Aberrant conduction of supraventricular beat(s) no longer present Ventricular premature complex(es) no longer present T-wave abnormality still present Electronically Signed On 09-01-2024 11:51:43 CDT by Dipak Tidwell M.D. [email or web address]
[2024-08-27 10:08] LABS: Basophils % 0.5 %; Eosinophils # 0.1 10^3/uL (0.0-0.8); Eosinophils % 1.3 %; Hematocrit 40.1 % (37-53); Lymphocytes # 1.5 10^3/uL (0.8-4.8); Lymphocytes % 19.9 %; Mean Corpuscular HGB Conc 32.7 g/dL (30-55); Mean Corpuscular Volume 91.8 fl (82-101); Mean Platelet Volume 10.3 fL (7.4-10.4); Monocytes # 0.5 10^3/uL (0.2-0.9); Monocytes % 6.1 %; Neutrophils # 5.45 10^3/uL (1.8-7.7); Neutrophils % 71.8 %; Nucleated Red Blood Cells % 0 %; Platelet Count 166 10^3/cmm (157-399); Red Blood Count 4.37 10^6/uL (3.85-5.65); Red Cell Distribution Width 13.8 % (12.1-15.1); White Blood Count 7.59 10^3/uL (3.29-11.43)
[2024-08-27 10:19] LABS: INR 0.95 (0.8-1.2)
[2024-08-27 10:20] LABS: Partial Thromboplastin Time 22.4 SECONDS (23.9-36.7)
[2024-08-27 10:24] LABS: Alanine Aminotransferase 31 U/L (0-41); Alkaline Phosphatase 67 U/L (40-130); Anion Gap 16.5 (5-19); Aspartate Amino Transferase 29 U/L (0-40); Blood Urea Nitrogen 21 mg/dL (8-23); Calcium 8.2 mg/dL (8.5-10.5); Carbon Dioxide 24 mmol/L (22-29); Chloride 98 mmol/L (98-107); Creatinine Clr Calc Pharmacy 99.8502; Globulin 2.2 g/dL (1.3-4.6); Glucose 192 mg/dL (65-115); Osmolality Calculated 288 mOsm/kg (285-295); Potassium 3.5 mmol/L (3.5-5.1); Sodium 135 mmol/L (136-145); Total Bilirubin 0.6 mg/dL (0.15-1.2); Total Protein 6.2 g/dL (6.6-8.7)
[2024-08-27 10:36] LABS: Bilirubin Urine Negative (Negative); Blood Urine Negative (Negative); Glucose Urine UA Trace (Normal); Ketones Urine Negative (Negative); Leukocyte Esterase Urine Negative (Negative); Nitrate Urine Negative (Negative); Protein Urine Negative (Negative); Specific Gravity, Urine 1.023 (1.005-1.030); Urine Appearance Clear (CLEAR); Urine Color Yellow (Yellow); Urobilinogen Urine 0.2 mg/dL (Negative)
[2024-08-27 10:39] LABS: Add Urine Microscopic? YES; Bacteria Urine None Seen /hpf; Hyaline Casts Urine 0.81 /lpf; RBC Urine 0-2 /hpf (0-2); Squamous Epithelial Cell Urine 0-5 /hpf (0-5); WBC Urine 0-5 /hpf (0-5)
[2024-08-27 10:43] LABS: Amphetamines Screen Urine Negative (Negative); Barbiturates Screen Urine Negative (Negative); Benzodiazepines Screen Urine Negative (Negative); Cocaine Screen Urine Negative (Negative); Opiate Screen Urine Negative (Negative); PCP Screen Urine Negative (Negative); THC Screen Urine Negative (Negative)
[2024-08-27] MEDS: iohexol 350 mg/mL 500 mL Btl (per mL) IV (12:22)
--- NOTE | 2024-08-27 13:06 | PM.HP ---
Providers/Chief Complaint Admitting Physician: Grady Alonso Primary Care Provider: Melissa Garcia MD Chief Complaint: stroke like symptoms History of Present Illness Sourav Anders is a 69 year old male with a history of coronary artery disease (status post three-vessel coronary artery bypass graft), asthma, COPD, asbestos exposure, diabetes, hypertension, hyperlipidemia, obstructive sleep apnea, obesity, rfmof-0-bzzadoffzoc deficiency, intolerance to CPAP, and environmental allergies, presenting to the emergency room after waking up this morning with new left-sided weakness and facial droop. The symptoms were first noticed upon awakening, with the last known normal state reported around midnight the previous night. The patient initially could not move their left fingers but has since regained some mobility. There was also difficulty with coordination. The patient denies any prior history of stroke. There are no associated symptoms of fever, chills, headache, nausea, vomiting, diarrhea, blood in stool or urine, or dark urine. The patient reports no recent infection. The patient does not drink alcohol, smoke, or use recreational drugs. There is a history of intolerance to statins due to muscle weakness, and the patient is currently on a low-dose cholesterol medication. The patient takes aspirin at night and an oral diabetes medication (not metformin, unclear which). The patient has a history of sleep apnea but is intolerant to CPAP. The patient reports recent stress due to marital issues. No history of atrial fibrillation. The patient monitors blood pressure at home, which usually runs higher than normal. No recent lung biopsy was performed despite referral. The patient is currently seeking a new primary care provider. Review of Systems Const: Denies: fever(s), chills, body aches or malaise ENMT: Denies: throat pain Card: Denies: chest pain, edema, pre-syncope or dyspnea on exertion Resp: Denies: dyspnea, productive cough, change in phlegm color or hemoptysis GI: Denies: abdominal pain, nausea, vomiting, diarrhea, constipation, hematochezia or melena : Denies: flank pain, difficulty urinating, urinary frequency or hematuria Musc: Denies: back pain, joint swelling or joint redness Skin/Breast: Denies: rash or new lesions Neuro: Reports: weakness in extremities, lack of coordination and difficulty walking; Denies: headache(s) or confusion Medications/Allergies Home Medications ?Medication ?Instructions ?Recorded ?Confirmed ?Last Taken ?Type ascorbate calcium (vitamin C) 500 500 mg PO DAILY 09/29/19 08/27/24 03/05/22 History mg tablet aspirin 81 mg tablet,delayed 81 mg PO QPM 09/29/19 05/02/23 03/04/22 History release (Adult Low Dose Aspirin) cholecalciferol (vitamin D3) 25 25 mcg PO DAILY 09/29/19 05/02/23 03/05/22 History mcg (1,000 unit) capsule lisinopril 40 mg tablet 80 mg PO DAILY 09/29/19 05/02/23 03/05/22 History red yeast rice 600 mg capsule 1,200 mg PO DAILY 09/29/19 05/02/23 03/05/22 History albuterol sulfate 90 mcg/actuation 1 inh inhalation QID PRN shortness 12/26/20 08/27/24 Unknown History aerosol inhaler of breath or wheezing omega-3 fatty acids 1,000 mg 1,000 mg PO BID 03/05/22 05/02/23 03/05/22 History capsule nifedipine 30 mg tablet,extended 60 mg (2 x 30 mg) PO DAILY #180 05/29/22 05/02/23 Unknown Rx release tabs beet root tablet PO 10/30/22 05/02/23 Unknown History elderberrry tablet PO 10/30/22 05/02/23 Unknown History hydralazine 50 mg tablet 50 mg PO BID #60 tabs 10/30/22 05/02/23 Unknown Rx budesonide 160 mcg-glycopyr 9 2 inh inhalation BID #10.7 grams 05/02/23 05/02/23 Unknown Rx mcg-formot 4.8 mcg/actuation HFA inhaler (Breztri Aerosphere) Allergies Allergy/AdvReac Type Severity Reaction Status Date / Time Sulfa (Sulfonamide Allergy Severe Night Verified 05/02/23 08:10 Antibiotics) Sweats and Neck Pain atorvastatin Allergy myalgia Verified 05/02/23 08:10 budesonide (From Symbicort) Allergy ALGY-Difficulty Verified 05/02/23 08:10 Breathing formoterol (From Symbicort) Allergy ALGY-Difficulty Verified 05/02/23 08:10 Breathing lovastatin Allergy myalgia Verified 05/02/23 08:10 metoprolol Allergy ALGY-Hives Verified 05/02/23 08:10 pravastatin Allergy myalgia Verified 05/02/23 08:10 simvastatin Allergy myalgia Verified 05/02/23 08:10 theophylline (From Damian-Dur) Allergy ALGY-Hives Verified 05/02/23 08:10 PFSH Acute PFSH: Medical History Multiple environmental allergies Obstructive sleep apnea by sleep study, intolerant to CPAP Benign neoplasm of adrenal gland Ztshv-0-hpgqzubxaxg deficiency Phenotype MZ Obesity CAD (coronary artery disease) 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 Asthma COPD (chronic obstructive pulmonary disease) no smoking history Hyperlipidemia Diabetes Hypertension Surgical History History of colonoscopy 2019 screening study, sigmoid diverticulosis, intramuscular lipoma left lower abdominal wall, 10 yr follow up H/O heart bypass surgery (~2017) 3 vessel, [place], H/O inguinal hernia repair H/O umbilical hernia repair Family History Father Diabetes Lung disease Brother Suicide Other Cancer Denies family history of CAD (coronary artery disease) Clotting disorder Dementia Chronic kidney disease (CKD) Anesthesia complication Bleeding disorder Stroke Social History Smoking and tobacco/nicotine status: never used tobacco/nicotine Alcohol intake: current Alcohol intake frequency: holidays/special occasions only Substance/Drug Use: never Household members: spouse Marital status: Current occupational status: employed 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 Vitals/I&O/Wt Last Vital Signs Temp 98.0 F 08/27/24 09:52 Pulse 69 08/27/24 11:55 Resp 18 08/27/24 09:52 BP 167/91 08/27/24 11:55 Pulse Ox 93 08/27/24 11:55 O2 Del Method Room Air 08/27/24 09:52 Weight last 48 hrs Weight 98.883 kg Physical Exam Narrative: Accompanied by his son Const: COMMON NORMALS: patient oriented x3 and alert GENERAL APPEARANCE: cooperative ORIENTATION/CONSCIOUSNESS: Yes awake HENMT: COMMON NORMALS: oropharynx normal Neck/C-Spine: COMMON NORMALS: no JVD Resp: COMMON NORMALS: normal respiratory effort and clear to auscultation bilaterally AUSCULTATION: clear to auscultation bilaterally Cardio: COMMON NORMALS: no JVD, regular rhythm, S1 normal heart sound present, S2 normal heart sound present and No murmurs present (Cardio) RHYTHM: regular rhythm HEART SOUNDS: S1 normal heart sound present and S2 normal heart sound present GI: COMMON NORMALS: Normal to inspection, nondistended, normoactive bowel sounds present, Soft to palpation and non-tender PALPATION: Yes Soft to palpation Extremity: COMMON NORMALS: no joint enlargement and no pedal edema Neuro: COMMON NORMALS: patient oriented x3 and moves all extremities SENSORIUM/ORIENTATION: Yes alert OTHER: He is awake and alert, keenly responsive, following directions, mild left-sided facial droop, without significant dysarthria, no difficulty in horizontal tracking, visual albright full to confrontation, without visual extinction, moderate difficulty with FNF on left side, sensation symmetrical, without sensory extinction. Left upper and lower extremity drift. Skin: COMMON NORMALS: no rashes or lesions noted GENERAL SKIN EXAM: no rashes or lesions noted Data 08/27/24 09:58 08/27/24 09:58 A&P Assessment and plan (1) Cerebrovascular accident: Patient presented with acute onset left-sided weakness and facial droop upon awakening, with last known normal at midnight. No prior history of stroke. Imaging (CT angiogram) showed no major vessel occlusion. Not a candidate for thrombolytic therapy. Patient case was discussed by ED provider with neurologist and he was not found to be a candidate for TNK or revascularization therapy. Ongoing risk factors include cardiovascular disease, hypertension, diabetes, hyperlipidemia, sleep apnea, and obesity. Reviewed vitals, blood glucose, CT head, CBC, INR, CMP, UA, UDS, EKG, ED provider note, discussed with ED provider. - Hospitalized for overnight monitoring and further evaluation - Monitor with telemetry for arrhythmias (including atrial fibrillation) - Obtain echocardiogram to assess for cardiac sources of emboli - Monitor blood pressure, allow permissive hypertension acutely, then target long-term BP of 120/80 mmHg. Discussed with him close monitoring of blood pressures at home, adherence with blood pressure medications. - Continue aspirin - Add clopidogrel (Plavix) for 21 days, then instructed to discontinue, monitor for risk of bleeding with initiation of DAPT. Reassess blood counts. - Follow-up with primary provider for arrangement of PCSK9 inhibitor therapy - Physical therapy and occupational therapy evaluation for fall risk and rehabilitation - Speech therapy evaluation for swallowing assessment - Monitor for neurological changes - Arrange neurology follow-up after discharge Plan Coronary artery disease (status post CABG) : History of three-vessel coronary artery bypass graft. No history of atrial fibrillation. Ongoing risk factor management is important. - Continue aspirin, follow-up with primary provider regarding PCSK9 inhibitor -Discussed with him and his son long-term blood pressure optimization with target of 120/80 - Monitor for cardiac arrhythmias - Echocardiogram as above Diabetes mellitus : History of diabetes mellitus, currently on an oral agent (not metformin, unclear which). A1c to be checked. Diabetes is a risk factor for stroke and cardiovascular disease. - Check hemoglobin A1c - Continue current diabetes medication regimen after discharge. Mild insulin sliding scale in the hospital. Consistent carbohydrate diet. - Monitor blood glucose during hospitalization Hypertension : History of hypertension, usually runs high at home. Blood pressure management is critical for secondary stroke prevention. - Monitor blood pressure closely during hospitalization - Allow permissive hypertension acutely post-stroke, then target long-term BP of 120/80 mmHg - Encourage home BP monitoring after discharge Hyperlipidemia (statin intolerance) : History of hyperlipidemia with intolerance to multiple statins (muscle weakness). Currently on a low-dose cholesterol medication and red yeast rice. PCSK9 inhibitor discussed as alternative. - Continue current low-dose cholesterol medication - Discussed to visit regarding PCSK9 inhibitor (e.g., Repatha) with primary care provider after discharge for secondary prevention COPD/asthma/interstitial lung disease : History of COPD, asthma, asbestos exposure, and possible interstitial lung disease. No recent lung biopsy. Follows with pulmonology. No acute respiratory symptoms reported. - Continue current pulmonary medications - Follow up with pulmonology as outpatient Obstructive sleep apnea (CPAP intolerance) : History of obstructive sleep apnea, unable to tolerate CPAP. Sleep apnea is a risk factor for stroke. - No acute intervention; continue to monitor - Consider alternative therapies for sleep apnea in outpatient setting Bsxpj-4-cbezsqrjwdg deficiency : History of nmkac-5-nmvcexyiitn deficiency, which can be inherited and predisposes to emphysema and liver disease. Family members may be at risk. - Follow up with primary care or genetics for further evaluation - Discussed to inform family members of potential hereditary risk Obesity : Obesity is a risk factor for stroke and cardiovascular disease. - Encourage weight management strategies as part of long-term care Needs a new PCP. Requesting case management consultation PDMP PDMP Reviewed: Not Reviewed Attestations Medical Necessity Statement*: Place in observation for additional assessment management after acute ischemic stroke. and High MDM includes amount and/or complexity of data reviewed/ordered [ previous or external records, resulted lab(s)/test(s), ordered lab(s)/test(s) and other healthcare professional discussion] and described risk of complication, morbidity or mortality of management as documented Diagnoses Cerebrovascular accident I63.9
--- NOTE | 2024-08-27 13:07 | PC.PHAR ---
[facility] 08/27/24 1:05pm
[2024-08-27] MEDS: clopidogrel 75 mg Tablet PO (13:53)
--- NOTE | 2024-08-27 14:13 | USCV_ITS ---
Chago Sourav Age: 69 Gender: M : 1955 Exam Date: 08/27/2024 21:38 Ordering Phys: Grady Alonso MD Technologist: HOWARD Exam Location: [facility] – [place] Indication: stroke, LEFT hemiparesis and LEFT facial droop. BP: 142 / 104 HR: 66 Rhythm: Sinus Technical Quality: Adequate MEASUREMENTS (Male / Female) Normal Values 2D ECHO LV Diastolic Diameter PLAX 5.4 cm 4.2 - 5.9 / 3.9 - 5.3 cm IVS Diastolic Thickness 1.7 cm 0.6 - 1.0 / 0.6 - 0.9 cm IVS Systolic Thickness 2.0 cm LVPW Diastolic Thickness 1.6 cm 0.6 - 1.0 / 0.6 - 0.9 cm LVPW Systolic Thickness 1.1 cm LV Ejection Fraction 2D Teich 62.0 % LV Ejection Fraction MOD 4C 60.4 % LV Ejection Fraction MOD 2C 55.1 % LV Ejection Fraction 2C AL 53.8 % FINDINGS Left Ventricle Right Ventricle Right Atrium Left Atrium Mitral Valve Aortic Valve Tricuspid Valve Pulmonic Valve Pericardium Aorta IVC CONCLUSIONS Limited echocardiogram performed to rule out intracardiac shunt. Limited quality echocardiogram because of poor ultrasonic windows. LV systolic function is normal with EF 55 to 60%. On bubble study, no obvious evidence of intracardiac shunting seen. Dipak Tidwell MD (Electronically Signed) Final Date: 28 Aug 2024 09:22 S
[2024-08-27] MEDS: sodium chloride 0.9% 1,000 ML 100 ML IV (15:05)
[2024-08-27] MEDS: aspirin 325 mg Tablet PO (15:05)
[2024-08-27 17:57] LABS: Glucose Point of Care 153 mg/dL (70-110)
[2024-08-27] MEDS: insulin lispro 100 unit/1 mL SUBCUT ×2 (18:21→22:58)
[2024-08-27 20:53] LABS: Glucose Point of Care 146 mg/dL (70-110)
[2024-08-28] MEDS: sodium chloride 0.9% 1,000 ML 100 ML IV (01:56)
[2024-08-28 03:00] VITALS: BP 168/100; PULSE 77; RESP 16; TEMP 36.5; O2SAT 93
[2024-08-28 06:21] LABS: Estmated Average Glucose 151; Hemoglobin A1C 6.9 % (4.0-6.0)
[2024-08-28 06:40] LABS: Glucose Point of Care 127 mg/dL (70-110)
[2024-08-28 07:13] VITALS: BP 190/101; PULSE 67; RESP 16; TEMP 36.8; O2SAT 95
[2024-08-28 07:20] LABS: Chol HDL Ratio 5.17 mg/dL (1.0-5.00); Cholesterol 155 mg/dL (0-200); HDL Cholesterol 30 mg/dL (60-100); LDL Cholesterol Calculated 102 mg/dL (50-129); Triglycerides 116 mg/dL (0-150)
--- NOTE | 2024-08-28 08:23 | P.DS_ITS ---
Discharge Providers Date of Admission: 08/27/24 10:58 Date of Discharge: August 28, 2024 Attending Provider at Admission: Grady Alonso Attending Provider at Discharge: Grady Alonso Primary Care Provider: Melissa Garcia MD Diagnoses at Discharge Discharge Diagnosis (1) Cerebrovascular accident: Status: Acute Reason for Visit Reason for Visit: stroke like symptoms Brief History: Sourav Anders is a 69 year old male with a history of coronary artery disease (status post three-vessel coronary artery bypass graft), asthma, COPD, asbestos exposure, diabetes, hypertension, hyperlipidemia, obstructive sleep apnea, obesity, [id number] deficiency, intolerance to CPAP, and environmental allergies, presenting to the emergency room after waking up this morning with new left-sided weakness and facial droop. The symptoms were first noticed upon awakening, with the last known normal state reported around midnight the previous night. The patient initially could not move their left fingers but has since regained some mobility. There was also difficulty with coordination. The patient denies any prior history of stroke. There are no associated symptoms of fever, chills, headache, nausea, vomiting, diarrhea, blood in stool or urine, or dark urine. The patient reports no recent infection. The patient does not drink alcohol, smoke, or use recreational drugs. There is a history of intolerance to statins due to muscle weakness, and the patient is currently on a low-dose cholesterol medication. The patient takes aspirin at night and an oral diabetes medication (not metformin, unclear which). The patient has a history of sleep apnea but is intolerant to CPAP. The patient reports recent stress due to marital issues. No history of atrial fibrillation. The patient monitors blood pressure at home, which usually runs higher than normal. No recent lung biopsy was performed despite referral. The patient is currently seeking a new primary care provider. Hospital Course Hospital Course He was hospitalized for additional assessment of risk factors of recurrent stroke. In addition to aspirin started on Plavix. Symptoms improved significantly with improved power in upper and lower extremities, resolution of sensory loss, but with persistent mild dysmetria on the left. Head and neck CTA showed only minimal narrowing from carotid calcification and stenosis at bifurcations. As he has not been able to tolerate high intensity statin, with intolerance to multiple statins in the past, recommended follow-up with prime provider to make arrangements for PCSK9 inhibitor therapy. He was counseled and encouraged to make sure to not miss his blood pressure medications to allow to target long-term blood pressure goal of 120/80, which he verbalized he intends to commit to. A1c was noted at target of 6.9. Telemetry monitoring did not show atrial fibrillation. Echocardiogram was unremarkable without obvious evidence of intra cardiac shunting on bubble study. He has been going through a stressful time at home due to marital discord. Please follow-up with regards to stroke risk factors including helping him with stress management. Physical Exam Const: COMMON NORMALS: patient oriented x3 and alert GENERAL APPEARANCE: cooperative ORIENTATION/CONSCIOUSNESS: Yes awake HENMT: COMMON NORMALS: oropharynx normal Neck/C-Spine: COMMON NORMALS: no JVD Resp: COMMON NORMALS: normal respiratory effort and clear to auscultation bilaterally AUSCULTATION: clear to auscultation bilaterally Cardio: COMMON NORMALS: no JVD, regular rhythm, S1 normal heart sound present, S2 normal heart sound present and No murmurs present (Cardio) RHYTHM: regular rhythm HEART SOUNDS: S1 normal heart sound present and S2 normal heart sound present GI: COMMON NORMALS: Normal to inspection, nondistended, normoactive bowel sounds present, Soft to palpation and non-tender PALPATION: Yes Soft to palpation Extremity: COMMON NORMALS: no joint enlargement and no pedal edema Neuro: COMMON NORMALS: patient oriented x3 and moves all extremities SENSORIUM/ORIENTATION: Yes alert OTHER: Awake and alert, sitting up in the bedside, following directions. No facial droop. No difficulty tracking. Visual albright full to confrontation. Mild dysmetria on the left on FNF. Improvement in sensory loss. Improvement in left upper and lower extremity drift. Skin: COMMON NORMALS: no rashes or lesions noted GENERAL SKIN EXAM: no rashes or lesions noted Discharge Data Studies Completed and Pending Completed Studies During Hospitalization Category Date Time Status CT head thrombolytic [id number] Stat Cat Scan 08/27/24 09:36 Completed CTA head neck [CT angio headneck* [id number]] Stat Cat Scan 08/27/24 09:39 Completed Pending at discharge Category Date Time Status CV. echo lmt wo/w bubble [id number] Routine Ultrasound 08/27/24 14:13 Taken Radiology Impressions Head CT 08/27/24 09:36 Impression: 1. Negative for recent infarct or hemorrhage. 2. Moderate cerebral atrophy. Head/Neck CTA 08/27/24 09:39 Impression: 1. Normal common carotid and internal carotid circulation in the neck with minimal narrowing from carotid calcification and stenosis at the bifurcations. 2. Normal vertebral artery circulation. 3. Normal intracerebral circulation with no evidence of stenosis or obstruction of the intracerebral circulation. Laboratory Results WBC 7.59 10^3/uL (3.29-11.43) 08/27/24 09:58 RBC 4.37 10^6/uL (3.85-5.65) 08/27/24 09:58 Hgb 13.10 g/dL (11.27-16.99) 08/27/24 09:58 Hct 40.1 % (37-53) 08/27/24 09:58 MCV 91.8 fl (82-101) 08/27/24 09:58 MCH 30.0 pg (27-33) 08/27/24 09:58 MCHC 32.7 g/dL (30-55) 08/27/24 09:58 RDW 13.8 % (12.1-15.1) 08/27/24 09:58 Plt Count 166 10^3/cmm (157-399) 08/27/24 09:58 MPV 10.3 fL (7.4-10.4) 08/27/24 09:58 Neut % (Auto) 71.8 % 08/27/24 09:58 Lymph % (Auto) 19.9 % 08/27/24 09:58 Hinds % (Auto) 6.1 % 08/27/24 09:58 Eos % (Auto) 1.3 % 08/27/24 09:58 Baso % (Auto) 0.5 % 08/27/24 09:58 Neut # (Auto) 5.45 10^3/uL (1.8-7.7) 08/27/24 09:58 Lymph # (Auto) 1.5 10^3/uL (0.8-4.8) 08/27/24 09:58 Hinds # (Auto) 0.5 10^3/uL (0.2-0.9) 08/27/24 09:58 Eos # (Auto) 0.1 10^3/uL (0.0-0.8) 08/27/24 09:58 Baso # (Auto) 0.0 10^3/uL (0.0-0.1) 08/27/24 09:58 Nucleated RBC % (auto) 0 % 08/27/24 09:58 Nucleated RBCs # 0.0 /100WBC 08/27/24 09:58 PT 13.30 SECONDS (12.1-14.9) 08/27/24 09:58 INR 0.95 (0.8-1.2) 08/27/24 09:58 APTT 22.4 SECONDS (23.9-36.7) L 08/27/24 09:58 Sodium 135 mmol/L (136-145) L 08/27/24 09:58 Potassium 3.5 mmol/L (3.5-5.1) 08/27/24 09:58 Chloride 98 mmol/L (98-107) 08/27/24 09:58 Carbon Dioxide 24 mmol/L (22-29) 08/27/24 09:58 Anion Gap 16.5 (5-19) 08/27/24 09:58 BUN 21 mg/dL (8-23) 08/27/24 09:58 Creatinine 0.8 mg/dL (0.7-1.2) 08/27/24 09:58 GFR Calculation Not Reportable 08/27/24 09:58 Glucose 192 mg/dL (65-115) H 08/27/24 09:58 POC Glucose 127 mg/dL (70-110) H 08/28/24 06:36 Estimat Average Glucose 151 08/28/24 04:39 Hemoglobin A1c 6.9 % (4.0-6.0) H 08/28/24 04:39 Calculated Osmolality 288 mOsm/kg (285-295) 08/27/24 09:58 Calcium 8.2 mg/dL (8.5-10.5) L 08/27/24 09:58 Total Bilirubin 0.6 mg/dL (0.15-1.2) 08/27/24 09:58 AST 29 U/L (0-40) 08/27/24 09:58 ALT 31 U/L (0-41) 08/27/24 09:58 Alkaline Phosphatase 67 U/L (40-130) 08/27/24 09:58 Total Protein 6.2 g/dL (6.6-8.7) L 08/27/24 09:58 Albumin 4.0 g/dL (3.5-5.2) 08/27/24 09:58 Globulin 2.2 g/dL (1.3-4.6) 08/27/24 09:58 Triglycerides 116 mg/dL (0-150) 08/28/24 04:39 Cholesterol 155 mg/dL (0-200) 08/28/24 04:39 LDL Cholesterol, Calc 102 mg/dL (50-129) 08/28/24 04:39 HDL Cholesterol 30 mg/dL (60-100) L 08/28/24 04:39 LDL/HDL Ratio 3.40 RATIO (0.00-3.22) H 08/28/24 04:39 Cholesterol/HDL Ratio 5.17 mg/dL (1.0-5.00) H 08/28/24 04:39 Urine Color Yellow (Yellow) 08/27/24 10:25 Urine Appearance Clear (CLEAR) 08/27/24 10:25 Urine pH 8.0 (5-7) A 08/27/24 10:25 Ur Specific Atkins 1.023 (1.005-1.030) 08/27/24 10:25 Urine Protein Negative (Negative) 08/27/24 10:25 Urine Glucose (UA) Trace (Normal) H 08/27/24 10:25 Urine Ketones Negative (Negative) 08/27/24 10:25 Urine Blood Negative (Negative) 08/27/24 10:25 Urine Nitrate Negative (Negative) 08/27/24 10:25 Urine Bilirubin Negative (Negative) 08/27/24 10:25 Urine Urobilinogen 0.2 mg/dL (Negative) 08/27/24 10:25 Ur Leukocyte Esterase Negative (Negative) 08/27/24 10:25 Urine RBC 0-2 /hpf (0-2) 08/27/24 10:25 Urine WBC 0-5 /hpf (0-5) 08/27/24 10:25 Ur Squamous Epith Cells 0-5 /hpf (0-5) 08/27/24 10:25 Amorphous Sediment Not Reportable 08/27/24 10:25 Urine Bacteria None seen /hpf (NONE) 08/27/24 10:25 Hyaline Casts 0.81 /lpf 08/27/24 10:25 Urine Opiates Screen Negative ng/mL (Negative) 08/27/24 10:25 Ur Barbiturates Screen Negative ng/mL (Negative) 08/27/24 10:25 Ur Phencyclidine Scrn Negative ng/mL (Negative) 08/27/24 10:25 Ur Amphetamines Screen Negative ng/mL (Negative) 08/27/24 10:25 U Benzodiazepines Scrn Negative ng/mL (Negative) 08/27/24 10:25 Urine Cocaine Screen Negative ng/mL (Negative) 08/27/24 10:25 U Marijuana (THC) Screen Negative ng/mL (Negative) 08/27/24 10:25 Vitals Last Vital Signs Temp 98.3 F 08/28/24 07:13 Pulse 67 08/28/24 07:13 Resp 16 08/28/24 07:13 BP 190/101 08/28/24 07:13 Pulse Ox 95 08/28/24 07:13 O2 Del Method Room Air 08/28/24 07:13 Discharge Plan Discharge Patient Disposition: Home Condition: Stable Prescriptions: New clopidogrel 75 mg Tablet 75 mg PO DAILY Qty: 90 0RF Continued albuterol sulfate 90 mcg/actuation HFA aerosol inhaler 1 inh inhalation QID PRN (Reason: shortness of breath or wheezing) ascorbate calcium (vitamin C) 500 mg tablet 500 mg PO DAILY cholecalciferol (vitamin D3) 25 mcg (1,000 unit) capsule 25 mcg PO DAILY aspirin [Adult Low Dose Aspirin] 81 mg tablet,delayed release (DR/EC) 81 mg PO QPM lisinopril 40 mg tablet 80 mg PO DAILY red yeast rice 600 mg capsule 1,200 mg PO DAILY Rx Instructions: give with meal/snack elderberrry tablet 1 tab PO DAILY Breztri Aerosphere 160-9-4.8 mcg/actuation HFA aerosol inhaler 2 inh inhalation BID Qty: 10.7 3RF nifedipine 30 mg tablet extended release 60 mg PO DAILY Qty: 180 3RF omega-3 fatty acids 1,000 mg Capsule 1,000 mg PO BID metoprolol succinate 50 mg Tablet Extended Release 24 Hr 25 mg PO DAILY glimepiride 1 mg Tablet 1 mg PO QAM Rx Instructions: administer with breakfast rosuvastatin 10 mg Tablet 5 mg PO DAILY Superbeets 1 chewable tab PO DAILY Discharge Orders: Discharge Order (Routine); Ordered 08/28/24 Ordered By: Grady Alonso Referrals: New, PCP [Other] - 4-7 days Referral Note: Prior PCP retired. Stroke. Madison Burnham MD [Physician, Neurology] - 2 weeks Referral Note: Stroke Melissa Garcia MD [Primary Care Provider, [facility]] - 09/02/24 11:30 am Referral Note: Appointment is with Lily Odonnell. If you are unable to attend this appointment please call to reschedule. Discharge Activity: As per PT/OT instructions Patient Instructions: Clopidogrel (By mouth), Ischemic Stroke (GEN), Stroke Stoplight Activity Restrictions/Additional Instructions: Continue to work on good blood pressure control. Target blood pressure 120/80. Continue with low-sodium, heart healthy diet. Continue medications. Measure blood pressure at least 3 times daily, write down values to bring to your appointment to continue to work with your primary provider on getting the blood pressures towards goal. Avoid stressful situations and work on stress management. Please visit with your primary provider for arrangements for a different type of cholesterol medication, PCSK9 inhibitor as discussed. Discharge Attestations Time Spent in Discharge Care*: greater than 30 min Quality Metrics Clinical Quality Measures [ No reported AMI, CVA or VTE this stay] Coding Level of Care Code 07647 Total time (in minutes) for Discharge: 45 Diagnoses Cerebrovascular accident I63.9
[2024-08-28] MEDS: clopidogrel 75 mg Tablet PO (09:03)
[2024-08-28] MEDS: aspirin 81 mg EC Tablet 162 MG PO (09:03)
--- NOTE | 2024-08-28 10:04 | PC.SOCIAL ---
IMM Update pg 2 of IMM Updated and reviewed w/ patient. Copy provided and copy dated, initialed and placed in chart.
[2024-08-28 10:45] LABS: Glucose Point of Care 146 mg/dL (70-110)
[2024-08-28 11:00] VITALS: BP 182/97
--- NOTE | 2024-08-28 12:00 | PC.NURSE ---
pt waiting on ot for d/c. notified ot, unable to give me an eta
== END 2024-08-28 12:30 | disposition home or self-care (01) ==
LOC: ER 10:52 → ER IP 11:24 → MEDSURG 19:09 → ER IP 08-28 08:19
PROVIDERS: Admitting Provider Internal Medicine; Emergency Provider Family Medicine; PCP Family Medicine; Visit Provider Internal Medicine
DX: I63.9 Cerebral infarction, unspecified (principal); R29.706 NIHSS score 6; I25.10 Atherosclerotic heart disease of native coronary artery without angina pectoris; Z95.1 Presence of aortocoronary bypass graft; J44.9 Chronic obstructive pulmonary disease, unspecified; E11.9 Type 2 diabetes mellitus without complications; I10 Essential (primary) hypertension; E78.5 Hyperlipidemia, unspecified; G47.33 Obstructive sleep apnea (adult) (pediatric); E66.9 Obesity, unspecified; Z68.29 Body mass index [BMI] 29.0-29.9, adult; F43.9 Reaction to severe stress, unspecified
CPT/HCPCS: 36415; 36416; 70450; 70496; 70498; 80053; 80061; 80306; 81001; 82962; 83036; 85025; 85610; 85730; 92523; 92610; 93005; 96372; 97116; 97161; 97165; 99285; C8924; G0378; J1815; J7030; J9999

== ENCOUNTER 2024-08-29 10:48 | Inpatient (IN) | payer OTHER, MEDICARE, SELFPAY ==
[2024-08-29] VITALS (10 sets, daily range): BP systolic 161–184; BP diastolic 93–107; PULSE 72–93; RESP 15–19; TEMP 36.7; O2SAT 92–99; BMI 30.7
--- NOTE | 2024-08-29 10:57 | CTR_ITS ---
PROCEDURE INFORMATION: Exam: CT Head Without Contrast Exam date and time: 08/29/2024 10:50 AM Age: 69 years old Clinical indication: Stroke-like symptoms; Right facial droop; Lt upper extremity and lt lower extremity weakness; Additional info: Left side weakness TECHNIQUE: Imaging protocol: Computed tomography of the head without contrast. Radiation optimization: All CT scans at this facility use at least one of these dose optimization techniques: automated exposure control; mA and/or kV adjustment per patient size (includes targeted exams where dose is matched to clinical indication); or iterative reconstruction. Other technique: STROKE PROTOCOL was implemented. COMPARISON: CT angio headneck* [id number] 08/27/2024 9:43 AM RADIATION DOSE METRICS: Total DLP (mGy-cm): 1150.48 FINDINGS: Brain: There is a vague area of low density involving the right side of the braden. Mild diffuse cerebral atrophy is noted. Cerebral ventricles: No ventriculomegaly. No midline shift. Paranasal sinuses: Visualized sinuses are unremarkable. No fluid levels. Mastoid air cells: Visualized mastoid air cells are well aerated. Bones: Unremarkable. No acute fracture. Soft tissues: Unremarkable. CT/CT head thrombolytic [id number] IMPRESSION: 1. Vague area of low density involving the right side of the braden suggesting subacute infarct. This area has decreased in density over the past 2 days. A CTA performed 2 days earlier demonstrates severe bilateral vertebral artery stenoses. 2. Mild cerebral atrophy ASSESSMENT: ASPECTS (Sophie Stroke Program Early CT Score) is 10.
--- NOTE | 2024-08-29 11:22 | W.ED.NEUROSD ---
HPI - Neuro Symptoms/Deficit General: Chief Complaint: Neuro Symptoms/Deficit Stated Complaint: STROKE ALERT Time Seen by Provider: 08/29/24 10:49 History of Present Illness: Chief complaint is worsening left-sided weakness. Patient states he was doing well yesterday. He states he still has some left-sided weakness but it had gotten a little bit better but then he went to bed at about 10 PM last night and woke up this morning go to the bathroom and he had severe left-sided weakness. He states he can even lift his left arm. He states he has minimal use of his left leg. No headache. Related Data Home Medications ?Medication ?Instructions ?Recorded ?Confirmed ascorbate calcium (vitamin C) 500 500 mg PO DAILY 09/29/19 08/27/24 mg tablet aspirin 81 mg tablet,delayed 81 mg PO QPM 09/29/19 08/27/24 release (Adult Low Dose Aspirin) cholecalciferol (vitamin D3) 25 25 mcg PO DAILY 09/29/19 08/27/24 mcg (1,000 unit) capsule lisinopril 40 mg tablet 80 mg PO DAILY 09/29/19 08/27/24 red yeast rice 600 mg capsule 1,200 mg PO DAILY 09/29/19 08/27/24 albuterol sulfate 90 mcg/actuation 1 inh inhalation QID PRN shortness 12/26/20 08/27/24 aerosol inhaler of breath or wheezing omega-3 fatty acids 1,000 mg 1,000 mg PO BID 03/05/22 08/27/24 capsule elderberrry tablet 1 tab PO DAILY 10/30/22 08/27/24 Superbeets 1 chewable tab PO DAILY 08/27/24 08/27/24 glimepiride 1 mg tablet 1 mg PO QAM 08/27/24 08/27/24 metoprolol succinate 50 mg 25 mg PO DAILY 08/27/24 08/27/24 tablet,extended release 24 hr rosuvastatin 10 mg tablet 5 mg PO DAILY 08/27/24 08/27/24 Previous Rx's ?Medication ?Instructions ?Recorded nifedipine 30 mg tablet,extended 60 mg (2 x 30 mg) PO DAILY #180 05/29/22 release tabs budesonide 160 mcg-glycopyr 9 2 inh inhalation BID #10.7 grams 05/02/23 mcg-formot 4.8 mcg/actuation HFA inhaler (Breztri Aerosphere) clopidogrel 75 mg tablet 75 mg PO DAILY #90 tabs 08/28/24 Allergies Allergy/AdvReac Type Severity Reaction Status Date / Time Sulfa (Sulfonamide Allergy Severe Night Verified 05/02/23 08:10 Antibiotics) Sweats and Neck Pain atorvastatin Allergy myalgia Verified 05/02/23 08:10 budesonide (From Symbicort) Allergy ALGY-Difficulty Verified 05/02/23 08:10 Breathing formoterol (From Symbicort) Allergy ALGY-Difficulty Verified 05/02/23 08:10 Breathing lovastatin Allergy myalgia Verified 05/02/23 08:10 metoprolol Allergy ALGY-Hives Verified 05/02/23 08:10 pravastatin Allergy myalgia Verified 05/02/23 08:10 simvastatin Allergy myalgia Verified 05/02/23 08:10 theophylline (From Damian-Dur) Allergy ALGY-Hives Verified 05/02/23 08:10 PFSH ED PFSH: Medical History Multiple environmental allergies Obstructive sleep apnea by sleep study, intolerant to CPAP Benign neoplasm of adrenal gland Ojijm-[id number] deficiency Phenotype MZ Obesity CAD (coronary artery disease) 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 Asthma COPD (chronic obstructive pulmonary disease) no smoking history Hyperlipidemia Diabetes Hypertension Surgical History History of colonoscopy 2019 screening study, sigmoid diverticulosis, intramuscular lipoma left lower abdominal wall, 10 yr follow up H/O heart bypass surgery (~2017) 3 vessel, [place], H/O inguinal hernia repair H/O umbilical hernia repair Family History Father Diabetes Lung disease Brother Suicide Other Cancer Denies family history of CAD (coronary artery disease) Clotting disorder Dementia Chronic kidney disease (CKD) Anesthesia complication Bleeding disorder Stroke Social History Smoking and tobacco/nicotine status: never used tobacco/nicotine Alcohol intake: current Alcohol intake frequency: holidays/special occasions only Substance/Drug Use: never Household members: spouse Marital status: Current occupational status: employed 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 Pupils equal and reactive. Full range ocular motion. Normal-appearing conjunctiva. Moist mucous membranes. Heart regular rhythm. Lung sounds are clear. Abdomen soft nontender. Extremities warm well-perfused. Patient has dense left-sided deficit. He can lift his left leg off the bed fairly well but then falls back onto the bed within about 2 seconds. He cannot move his left arm. He has grossly intact sensation. He has left facial droop. Mild dysarthria but no apparent aphasia. Skin appears normal coloration and is dry and no rash in exposed areas. He has a small abrasion over his left elbow. No bony point tenderness over his arms or legs. Course Vital Signs: Vital signs: Vital Signs Temperature 98.1 F 08/29/24 10:49 Pulse Rate 90 08/29/24 11:29 Respiratory Rate 19 H 08/29/24 11:29 Blood Pressure 162/101 08/29/24 11:02 Pulse Oximetry 93 08/29/24 11:29 Oxygen Delivery Me thod Room Air 08/29/24 11:02 MDM - Neuro Symptoms/Deficit Medical Decision Making Patient presents with acute worsening left side deficit. Patient states he was recently in the hospital for left-sided stroke and had symptoms but was still able to use his left side. He states he woke up this morning with markedly worse symptoms. Last known at his more recent baseline would have been about 10 PM last night. Patient however not TNK candidate with recent stroke. Patient sent directly to CT and there is no evidence of acute hemorrhage per radiologist but the patient did have severe stenosis of the vertebral arteries on the CT angio on the radiologist review of his recent CT angio. Patient also has evidence of acute stroke ischemic on today's CT. Patient is already on Plavix and aspirin. I ordered a full dose aspirin for the patient by mouth. I consulted with Dr. Burnham who agrees and will admit patient for further stroke evaluation and treatment. CBC, CMP, coags, EKG, PT PTT ordered. Labs did not show significant abnormality relevant to his presenting symptoms. I consulted with Dr. Burnham who agrees patient would not be TNK or mechanical thrombectomy candidate with his recent stroke and based on his CT angio from his prior visit. Dr. Burnham recommends admission for further medical management and evaluation and I discussed with Dr. Nevarez who accepts the patient in admission Lab Data 08/29/24 11:10 08/29/24 11:[address] 08/29/24 10:57 IMPRESSION: 1. Vague area of low density involving the right side of the braden suggesting subacute infarct. This area has decreased in density over the past 2 days. A CTA performed 2 days earlier demonstrates severe bilateral vertebral artery stenoses. 2. Mild cerebral atrophy ASSESSMENT: ASPECTS (Sophie Stroke Program Early CT Score) is 10. ADDENDUM: 08/29/24 1116 COMMENT: THIS REPORT CONTAINS FINDINGS THAT MAY BE CRITICAL TO PATIENT CARE. The exam findings were verbally communicated by me to MARSHA MCCULLOUGH via telephone conference at 11:15 AM CDT on 08/29/2024. The findings were acknowledged and understood. Laboratory Results WBC 8.63 10^3/uL (3.29-11.43) 08/29/24 11:10 RBC 4.93 10^6/uL (3.85-5.65) 08/29/24 11:10 Hgb 14.50 g/dL (11.27-16.99) 08/29/24 11:10 Hct 44.4 % (37-53) 08/29/24 11:10 MCV 90.1 fl (82-101) 08/29/24 11:10 MCH 29.4 pg (27-33) 08/29/24 11:10 MCHC 32.7 g/dL (30-55) 08/29/24 11:10 RDW 13.8 % (12.1-15.1) 08/29/24 11:10 Plt Count 188 10^3/cmm (157-399) 08/29/24 11:10 MPV 10.0 fL (7.4-10.4) 08/29/24 11:10 Neut % (Auto) 80.5 % 08/29/24 11:10 Lymph % (Auto) 13.2 % 08/29/24 11:10 [place] % (Auto) 4.9 % 08/29/24 11:10 Eos % (Auto) 0.3 % 08/29/24 11:10 Baso % (Auto) 0.6 % 08/29/24 11:10 Neut # (Auto) 6.95 10^3/uL (1.8-7.7) 08/29/24 11:10 Lymph # (Auto) 1.1 10^3/uL (0.8-4.8) 08/29/24 11:10 [place] # (Auto) 0.4 10^3/uL (0.2-0.9) 08/29/24 11:10 Eos # (Auto) 0.0 10^3/uL (0.0-0.8) 08/29/24 11:10 Baso # (Auto) 0.1 10^3/uL (0.0-0.1) 08/29/24 11:10 Nucleated RBC % (auto) 0 % 08/29/24 11:10 Nucleated RBCs # 0.0 /100WBC 08/29/24 11:10 PT 12.50 SECONDS (12.1-14.9) 08/29/24 11:10 INR 0.87 (0.8-1.2) 08/29/24 11:10 APTT 25.2 SECONDS (23.9-36.7) 08/29/24 11:10 Sodium 141 mmol/L (136-145) 08/29/24 11:10 Potassium 3.5 mmol/L (3.5-5.1) 08/29/24 11:10 Chloride 103 mmol/L (98-107) 08/29/24 11:10 Carbon Dioxide 25 mmol/L (22-29) 08/29/24 11:10 Anion Gap 16.5 (5-19) 08/29/24 11:10 BUN 17 mg/dL (8-23) 08/29/24 11:10 Creatinine 0.9 mg/dL (0.7-1.2) 08/29/24 11:10 GFR Calculation Not Reportable 08/29/24 11:10 Glucose 144 mg/dL (65-115) H 08/29/24 11:10 Calculated Osmolality 296 mOsm/kg (285-295) H 08/29/24 11:10 Calcium 9.3 mg/dL (8.5-10.5) 08/29/24 11:10 Total Bilirubin 0.7 mg/dL (0.15-1.2) 08/29/24 11:10 AST 33 U/L (0-40) 08/29/24 11:10 ALT 37 U/L (0-41) 08/29/24 11:10 Alkaline Phosphatase 83 U/L (40-130) 08/29/24 11:10 Total Protein 7.4 g/dL (6.6-8.7) 08/29/24 11:10 Albumin 4.4 g/dL (3.5-5.2) 08/29/24 11:10 Globulin 3.0 g/dL (1.3-4.6) 08/29/24 11:10 Urine Color Yellow (Yellow) 08/29/24 11:42 Urine Appearance Clear (CLEAR) 08/29/24 11:42 Urine pH 7.5 (5-7) 08/29/24 11:42 Ur Specific [place] 1.014 (1.005-1.030) 08/29/24 11:42 Urine Protein Negative (Negative) 08/29/24 11:42 Urine Glucose (UA) Negative (Normal) 08/29/24 11:42 Urine Ketones Trace (Negative) 08/29/24 11:42 Urine Blood Negative (Negative) 08/29/24 11:42 Urine Nitrate Negative (Negative) 08/29/24 11:42 Urine Bilirubin Negative (Negative) 08/29/24 11:42 Urine Urobilinogen 1.0 mg/dL (Negative) 08/29/24 11:42 Ur Leukocyte Esterase Negative (Negative) 08/29/24 11:42 Urine RBC 0-2 /hpf (0-2) 08/29/24 11:42 Urine WBC 0-5 /hpf (0-5) 08/29/24 11:42 Ur Squamous Epith Cells 0-5 /hpf (0-5) 08/29/24 11:42 Amorphous Sediment Not Reportable 08/29/24 11:42 Urine Bacteria None seen /hpf (NONE) 08/29/24 11:42 Hyaline Casts 0-4 /lpf H 08/29/24 11:42 Urine Opiates Screen Negative ng/mL (Negative) 08/29/24 11:42 Ur Barbiturates Screen Negative ng/mL (Negative) 08/29/24 11:42 Ur Phencyclidine Scrn Negative ng/mL (Negative) 08/29/24 11:42 Ur Amphetamines Screen Negative ng/mL (Negative) 08/29/24 11:42 U Benzodiazepines Scrn Negative ng/mL (Negative) 08/29/24 11:42 Urine Cocaine Screen Negative ng/mL (Negative) 08/29/24 11:42 U Marijuana (THC) Screen Negative ng/mL (Negative) 08/29/24 11:42 All radiology interpretation(s) finalized by discharge Discharge Plan Discharge Patient Disposition: Admitted As Inpatient Clinical Impression: Cerebrovascular accident Condition: Serious Coding Level of Care Code ED Money 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
[2024-08-29 11:30] LABS: Basophils # 0.1 10^3/uL (0.0-0.1); Basophils % 0.6 %; Eosinophils % 0.3 %; Hematocrit 44.4 % (37-53); Lymphocytes # 1.1 10^3/uL (0.8-4.8); Lymphocytes % 13.2 %; Mean Corpuscular HGB Conc 32.7 g/dL (30-55); Mean Corpuscular Hemoglobin 29.4 pg (27-33); Mean Corpuscular Volume 90.1 fl (82-101); Monocytes # 0.4 10^3/uL (0.2-0.9); Monocytes % 4.9 %; Neutrophils # 6.95 10^3/uL (1.8-7.7); Neutrophils % 80.5 %; Nucleated Red Blood Cells % 0 %; Platelet Count 188 10^3/cmm (157-399); Red Blood Count 4.93 10^6/uL (3.85-5.65); Red Cell Distribution Width 13.8 % (12.1-15.1); White Blood Count 8.63 10^3/uL (3.29-11.43)
--- NOTE | 2024-08-29 11:34 | ECG_ITS ---
[facility] Test Date: 2024-08-29 Pat Name: Sourav Anders Department: Room: Gender: Male Setter Machine: : 1955 Requested By: Gabe Valadez Order Number: [id number] Peterson MD: Dipak Tidwell M.D. Measurements Intervals [place] Rate: 85 P: 98 [place]: 164 QRS: 52 QRSD: 110 T: 90 QT: 388 QTc: 462 Interpretive Statements SINUS RHYTHM WITH OCCASIONAL VENTRICULAR PREMATURE COMPLEXES WITH OCCASIONAL SUPRAVENTRICULAR PREMATURE COMPLEXES ST DEVIATION AND MODERATE T-WAVE ABNORMALITY, CONSIDER ANTERIOR ISCHEMIA [-0.1+ mV T-WAVE IN V3/V4] Compared to ECG 08/27/2024 09:54:30 Ventricular premature complex(es) now present Possible ischemia now present T-wave abnormality still present Electronically Signed On 09-01-2024 11:42:48 CDT by Dipak Tidwell M.D. [email or web address]
[2024-08-29] MEDS: aspirin 81 mg Chew Tablet 324 MG PO (11:38)
[2024-08-29 11:42] LABS: INR 0.87 (0.8-1.2); Partial Thromboplastin Time 25.2 SECONDS (23.9-36.7)
[2024-08-29 11:47] LABS: Alanine Aminotransferase 37 U/L (0-41); Albumin Level 4.4 g/dL (3.5-5.2); Alkaline Phosphatase 83 U/L (40-130); Anion Gap 16.5 (5-19); Aspartate Amino Transferase 33 U/L (0-40); Blood Urea Nitrogen 17 mg/dL (8-23); Calcium 9.3 mg/dL (8.5-10.5); Carbon Dioxide 25 mmol/L (22-29); Chloride 103 mmol/L (98-107); Creatinine Clr Calc Pharmacy 90.6115; Glucose 144 mg/dL (65-115); Osmolality Calculated 296 mOsm/kg (285-295); Potassium 3.5 mmol/L (3.5-5.1); Sodium 141 mmol/L (136-145); Total Bilirubin 0.7 mg/dL (0.15-1.2); Total Protein 7.4 g/dL (6.6-8.7)
[2024-08-29 11:57] LABS: Bilirubin Urine Negative (Negative); Blood Urine Negative (Negative); Glucose Urine UA Negative (Normal); Ketones Urine Trace (Negative); Leukocyte Esterase Urine Negative (Negative); Nitrate Urine Negative (Negative); Protein Urine Negative (Negative); Specific Gravity, Urine 1.014 (1.005-1.030); Urine Appearance Clear (CLEAR); Urine Color Yellow (Yellow); pH Urine 7.5 (5-7)
[2024-08-29 12:01] LABS: Add Urine Microscopic? YES; Bacteria Urine None Seen /hpf; Hyaline Casts Urine 0-4 /lpf; RBC Urine 0-2 /hpf (0-2); Squamous Epithelial Cell Urine 0-5 /hpf (0-5); WBC Urine 0-5 /hpf (0-5)
[2024-08-29 12:04] LABS: Amphetamines Screen Urine Negative (Negative); Barbiturates Screen Urine Negative (Negative); Benzodiazepines Screen Urine Negative (Negative); Cocaine Screen Urine Negative (Negative); Opiate Screen Urine Negative (Negative); PCP Screen Urine Negative (Negative); THC Screen Urine Negative (Negative)
--- NOTE | 2024-08-29 13:27 | MRR_ITS ---
PROCEDURE INFORMATION: Exam: MR Head Without Contrast Exam date and time: 08/29/2024 3:23 PM Age: 69 years old Clinical indication: Numbness / parasthesia; Left; Additional info: CVA TECHNIQUE: Imaging protocol: Magnetic resonance imaging of the head without contrast. COMPARISON: CT angio headneck* [id number] 08/29/2024 3:04 PM FINDINGS: Brain: There is a 1.5 cm diameter rounded acute infarct involving the right side of the braden. No other acute infarct noted. There is patchy chronic ischemic change involving the periventricular white matter bilaterally. Cerebral ventricles: Normal. No ventriculomegaly. Bones: Unremarkable. Paranasal sinuses: Normal as visualized. No acute sinusitis. Mastoid air cells: Normal as visualized. No mastoid effusion. Orbital cavities: Unremarkable. Soft tissues: Unremarkable. MR/MR head wo con* [id number] IMPRESSION: Acute right-sided pontine infarct
--- NOTE | 2024-08-29 13:32 | PM.HP ---
Providers/Chief Complaint Primary Care Provider: Melissa Garcia MD Chief Complaint: STROKE ALERT History of Present Illness Sourav Anders is a 69 year old male with a past medical history of CAD, history of CABG, asthma, COPD, diabetes, hypertension, hyperlipidemia, struct of sleep apnea, alpha-1 antitrypsin deficiency, who presents to [facility] for left-sided weakness, left-sided facial droop, slurring of his words. Patient was recently discharged from the hospital for acute CVA with left-sided weakness, he was discharged on aspirin, Plavix, patient reports that his symptoms almost resolved back to normal with mild left upper extremity weakness, he was discharged home with a close follow-up with primary care, discharged to his son's home, he tells me that before going to bed he had very mild left upper extremity weakness, but felt like he was back to normal, back to his normal self, he went to bed about 10 PM last night, he woke up this morning at about 8 AM or so and when he went to the bathroom he could not do so due to severe left-sided weakness, left upper and left lower extremity weakness, facial droop, slurring his words, some degree of receptive aphasia. Patient's NIH stroke scale was 11-12, patient was not deemed a TNKase candidate, by ER provider after discussion with neurology, last known well normal 10 PM 08/28/2024, patient was found to have findings concerning for bilateral severe vertebral artery stenosis, ER provider discussed this with neurology, discussed that patient was not a candidate for any vascular intervention. Hospitalist team was called for admission, currently patient is alert oriented x 3, following all commands, left arm no effort against gravity, left leg, no effort against gravity, 1 limb ataxia, mild to moderate sensory loss left lower extremity, mild to moderate aphasia, mild to moderate dysarthria, partial paralysis lower face, mild slurring of his words, no horizontal gaze palsy, no visual loss, NIH stroke scale 11-12, blood pressure 161/100, respiratory 19, pulse 83, normal sinus rhythm, blood glucose 144 Review of Systems Const: Denies: fever(s) Card: Denies: chest pain Resp: Denies: dyspnea Medications/Allergies Home Medications ?Medication ?Instructions ?Recorded ?Confirmed ?Last Taken ?Type ascorbate calcium (vitamin C) 500 500 mg PO DAILY 06/08/29/24 08/28/24 History mg tablet aspirin 81 mg tablet,delayed 81 mg PO QPM 09/29/19 08/29/24 08/29/24 History release (Adult Low Dose Aspirin) cholecalciferol (vitamin D3) 25 25 mcg PO DAILY 09/29/19 08/29/24 08/29/24 History mcg (1,000 unit) capsule lisinopril 40 mg tablet 80 mg PO DAILY 09/29/19 08/29/24 08/29/24 History red yeast rice 600 mg capsule 1,200 mg PO DAILY 09/29/19 08/27/24 08/27/24 History albuterol sulfate 90 mcg/actuation 1 inh inhalation QID PRN shortness 12/26/20 08/29/24 Unknown History aerosol inhaler of breath or wheezing omega-3 fatty acids 1,000 mg 1,000 mg PO BID 03/05/22 08/27/24 08/27/24 History capsule nifedipine 30 mg tablet,extended 60 mg (2 x 30 mg) PO DAILY #180 05/29/22 08/27/24 08/27/24 Rx release tabs Superbeets 1 chewable tab PO DAILY 08/27/24 08/27/24 Unknown History glimepiride 1 mg tablet 1 mg PO QAM 08/27/24 08/29/24 08/29/24 History metoprolol succinate 50 mg 25 mg PO DAILY 08/27/24 08/29/24 08/27/24 History tablet,extended release 24 hr rosuvastatin 10 mg tablet 5 mg PO DAILY 08/27/24 08/27/24 08/26/24 History clopidogrel 75 mg tablet 75 mg PO DAILY #90 tabs 08/28/24 08/29/24 Unknown Rx elderberry fruit 350 mg capsule 350 mg PO DAILY 08/29/24 08/29/24 Unknown History Allergies Allergy/AdvReac Type Severity Reaction Status Date / Time Sulfa (Sulfonamide Allergy Severe Night Verified 05/02/23 08:10 Antibiotics) Sweats and Neck Pain atorvastatin Allergy myalgia Verified 05/02/23 08:10 budesonide (From Symbicort) Allergy ALGY-Difficulty Verified 05/02/23 08:10 Breathing formoterol (From Symbicort) Allergy ALGY-Difficulty Verified 05/02/23 08:10 Breathing lovastatin Allergy myalgia Verified 05/02/23 08:10 metoprolol Allergy ALGY-Hives Verified 05/02/23 08:10 pravastatin Allergy myalgia Verified 05/02/23 08:10 simvastatin Allergy myalgia Verified 05/02/23 08:10 theophylline (From Damian-Dur) Allergy ALGY-Hives Verified 05/02/23 08:10 PFSH Acute PFSH: Medical History Multiple environmental allergies Obstructive sleep apnea by sleep study, intolerant to CPAP Benign neoplasm of adrenal gland Kegfy-[id number] deficiency Phenotype MZ Obesity CAD (coronary artery disease) 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 Asthma COPD (chronic obstructive pulmonary disease) no smoking history Hyperlipidemia Diabetes Hypertension Surgical History History of colonoscopy 2019 screening study, sigmoid diverticulosis, intramuscular lipoma left lower abdominal wall, 10 yr follow up H/O heart bypass surgery (~2016) 3 vessel, [place], H/O inguinal hernia repair H/O umbilical hernia repair Family History Father Diabetes Lung disease Brother Suicide Other Cancer Denies family history of CAD (coronary artery disease) Clotting disorder Dementia Chronic kidney disease (CKD) Anesthesia complication Bleeding disorder Stroke Social History Smoking and tobacco/nicotine status: never used tobacco/nicotine Alcohol intake: current Alcohol intake frequency: holidays/special occasions only Substance/Drug Use: never Household members: spouse Marital status: Current occupational status: employed 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 Vitals/I&O/Wt Last Vital Signs Temp 98.1 F 08/29/24 10:49 Pulse 83 08/29/24 13:22 Resp 19 H 08/29/24 13:22 BP 161/100 08/29/24 13:22 Pulse Ox 94 08/29/24 13:22 O2 Del Method Room Air 08/29/24 13:22 Weight last 48 hrs Weight 99.79 kg Physical Exam Const: COMMON NORMALS: no acute distress and patient oriented x3 HENMT: COMMON NORMALS: normocephalic HEAD & SCALP: normocephalic Eye: COMMON NORMALS: Equal, round and reactive pupils present and EOMs intact bilaterally Neck/C-Spine: COMMON NORMALS: no JVD Resp: COMMON NORMALS: normal respiratory effort, No retractions, No use of accessory muscles and clear to auscultation bilaterally AUSCULTATION: clear to auscultation bilaterally Cardio: COMMON NORMALS: regular rate, regular rhythm, S1 normal heart sound present and S2 normal heart sound present RATE: regular rate RHYTHM: regular rhythm HEART SOUNDS: S1 normal heart sound present and S2 normal heart sound present GI: COMMON NORMALS: Normal to inspection, nondistended, normoactive bowel sounds present, Soft to palpation and non-tender PALPATION: Yes No hepatosplenomegaly present Extremity: COMMON NORMALS: no calf tenderness and no pedal edema Neuro: COMMON NORMALS: patient oriented x3 OTHER: As above Psych: COMMON NORMALS: mental status grossly normal Data 08/29/24 11:10 08/29/24 11:10 A&P Assessment and plan (1) Acute CVA (cerebrovascular accident): (2) Hypertension: (3) Atherosclerosis of coronary artery of [place] heart without angina pectoris: (4) Hx of CABG: (5) Diabetes: (6) BMI 31.0-31.9,adult: Plan Acute CVA -With left-sided deficits, left upper left lower extremity weakness, left facial droop, slurring of his words, some productive and receptive aphasia - CT head CT/CT head thrombolytic [id number] IMPRESSION: 1. Vague area of low density involving the right side of the braden suggesting subacute infarct. This area has decreased in density over the past 2 days. A CTA performed 2 days earlier demonstrates severe bilateral vertebral artery stenoses. 2. Mild cerebral atrophy - Recent history of CT A CT/CT angio headneck* [id number] Impression: 1. Normal common carotid and internal carotid circulation in the neck with minimal narrowing from carotid calcification and stenosis at the bifurcations. 2. Normal vertebral artery circulation. 3. Normal intracerebral circulation with no evidence of stenosis or obstruction of the intracerebral circulation. -Back in 03/2022 patient had an episode of A-fib with RVR, when he had pneumonia, converted back to normal sinus rhythm -He subsequently followed up with cardiology, had an event monitor placed, no significant atrial fibrillation events, not deemed a candidate for anticoagulant therapy Plan -As there is a question of history of atrial fibrillation, with us acute worsening of left-sided weakness which is new overall, will repeat CT head and neck evaluate for possible embolic disease -Aspirin -Plavix -Statin -Allow for permissive hypertension treat if systolic greater than 210 or diastolic greater than 120 -IV fluids -Will consider starting anticoagulant therapy in 48 hours -Recent history of echo with bubble within normal limits, no intracardiac shunting -MRI brain -Full code -Lovenox for DVT prophylaxis History of atrial fibrillation - Anticoagulation hopefully in 48 hours - Continue beta-bharti once prudent Type 2 diabetes mellitus, low-dose sliding scale History of hypertension History of CAD History of CABG Hyperlipidemia Obstructive sleep apnea, unable to tolerate CPAP History of alpha-1 antitrypsin deficiency PDMP PDMP Reviewed: Not Reviewed Attestations Medical Necessity Statement*: Patient requires hospitalization for acute CVA, inpatient, greater than 2 midnights, left-sided deficits Diagnoses Acute CVA (cerebrovascular accident) I63.9 Primary hypertension I10 Hypertension type: primary hypertension Atherosclerosis of [place] coronary artery of [place] heart without angina pectoris I25.10 Coronary Disease-Associated Artery/Lesion type: [place] artery Hx of CABG Z95.1 Type 2 diabetes mellitus with hyperglycemia, without long-term current use of insulin E11.65 Diabetes mellitus complication status: with hyperglycemia Diabetes mellitus prison insulin use: without terminal block assembler use Diabetes mellitus type: type 2 BMI 31.0-31.9,adult Z68.31
--- NOTE | 2024-08-29 13:54 | CTR_ITS ---
PROCEDURE INFORMATION: Exam: CTA Head With Contrast, Arteriography Exam date and time: 08/29/2024 3:04 PM Age: 69 years old Clinical indication: Other: CVA, possible emolic CVA? History of afib TECHNIQUE: Imaging protocol: Computed tomographic angiography of the head with contrast. Exam focused on the arteries. 3D rendering (Not supervised by radiologist): MIP and/or 3D reconstructed images were created by the technologist. Radiation optimization: All CT scans at this facility use at least one of these dose optimization techniques: automated exposure control; mA and/or kV adjustment per patient size (includes targeted exams where dose is matched to clinical indication); or iterative reconstruction. Contrast material: OMNI 350; Contrast volume: 100 ml; Contrast route: INTRAVENOUS (IV); COMPARISON: CT angio headneck* [id number] 08/27/2024 9:43 AM RADIATION DOSE METRICS: Total DLP (mGy-cm): 522.82 FINDINGS: ANTERIOR CIRCULATION: Right internal carotid artery: Intracranial segment is patent with no significant stenosis. No aneurysm. Right middle cerebral artery: No occlusion or significant stenosis. No aneurysm. Right anterior cerebral artery: No occlusion or significant stenosis. No aneurysm. Left internal carotid artery: Intracranial segment is patent with no significant stenosis. No aneurysm. Left middle cerebral artery: No occlusion or significant stenosis. No aneurysm. Left anterior cerebral artery: No occlusion or significant stenosis. No aneurysm. POSTERIOR CIRCULATION: Right vertebral artery: No occlusion or significant stenosis. No aneurysm. Left vertebral artery: No occlusion or significant stenosis. No aneurysm. Basilar artery: No occlusion or significant stenosis. No aneurysm. Right posterior cerebral artery: No occlusion or significant stenosis. No aneurysm. Left posterior cerebral artery: No occlusion or significant stenosis. No aneurysm. Brain: No definite mass, mass effect, or midline shift. Cerebral ventricles: No ventriculomegaly. Bones/joints: Unremarkable. No acute fracture. Soft tissues: Unremarkable. PROCEDURE INFORMATION: Exam: CTA Neck With Contrast Exam date and time: 08/29/2024 3:04 PM Age: 69 years old Clinical indication: Other: CVA, possible emolic CVA? History of afib TECHNIQUE: Imaging protocol: Computed tomographic angiography of the neck with contrast. Exam focused on the cervical segments of the vasculature. 3D rendering (Not supervised by radiologist): MIP and/or 3D reconstructed images were created by the technologist. Radiation optimization: All CT scans at this facility use at least one of these dose optimization techniques: automated exposure control; mA and/or kV adjustment per patient size (includes targeted exams where dose is matched to clinical indication); or iterative reconstruction. Contrast material: OMNI 350; Contrast volume: 100 ml; Contrast route: INTRAVENOUS (IV); COMPARISON: CT angio headneck* [id number] 08/27/2024 9:43 AM RADIATION DOSE METRICS: Total DLP (mGy-cm): 522.82 FINDINGS: Right common carotid artery: No stenosis. No dissection or occlusion. Right internal carotid artery: The right internal carotid artery demonstrates irregular calcified plaque proximally with no evidence of significant stenosis. Right external carotid artery: No occlusion or stenosis of the origin. Left common carotid artery: No stenosis. No dissection or occlusion. Left internal carotid artery: The left internal carotid artery demonstrates irregular calcified plaque proximally with no evidence of significant stenosis. Left external carotid artery: No occlusion or stenosis of the origin. Right vertebral artery: No stenosis. No dissection or occlusion. Left vertebral artery: No stenosis. No dissection or occlusion. Soft tissues: Normal. No significant soft tissue swelling. Bones/joints: No acute fracture. Other findings: There are severe stenoses involving the distal portions of both vertebral arteries. CT/CT angio headneck* [id number] IMPRESSION: No large vessel stenosis or occlusion. IMPRESSION: 1. Severe stenoses involving the distal portions of both vertebral arteries 2. Calcified bilateral carotid without significant stenosis REFERENCES: NASCET CRITERIA. The degree of stenosis in the cervical segment of the internal carotid artery is based on NASCET criteria. Normal is no stenosis. Mild is less than 50% stenosis. Moderate is 50-69% stenosis. Severe is 70% to 99% stenosis. Total occlusion is no detectable patent lumen.
--- NOTE | 2024-08-29 14:52 | PC.NURSE ---
report called to MS, no further questions.
[2024-08-29] MEDS: LORazepam 1 MG/0.5 ML injection IVP (14:58)
[2024-08-29] MEDS: iohexol 350 mg/mL 500 mL Btl (per mL) IV (15:13)
--- NOTE | 2024-08-29 15:41 | PC.NURSE ---
pt left dept for CT and MRI approx @1500
--- NOTE | 2024-08-29 15:59 | PC.NURSE ---
per Dr. Nevarez pt can be transferred to floor.
[2024-08-29 16:52] LABS: Cholesterol 165 mg/dL (0-200); HDL Cholesterol 30 mg/dL (60-100); LDL Cholesterol Calculated 96 mg/dL (50-129); Triglycerides 194 mg/dL (0-150)
[2024-08-29 17:07] LABS: Glucose Point of Care 128 mg/dL (70-110)
[2024-08-29] MEDS: sodium chloride 0.9% 1,000 ML 75 ML IV (17:28)
[2024-08-29] MEDS: pantoprazole 40 mg SDV IVP (17:31)
[2024-08-29] MEDS: enoxaparin 40 mg/0.4 mL Syringe SUBCUT (17:32)
[2024-08-29 20:39] LABS: Glucose Point of Care 126 mg/dL (70-110)
[2024-08-30 03:14] LABS: Basophils % 0.5 %; Eosinophils # 0.1 10^3/uL (0.0-0.8); Eosinophils % 1.3 %; Hematocrit 42.3 % (37-53); Lymphocytes # 1.7 10^3/uL (0.8-4.8); Lymphocytes % 20.3 %; Mean Corpuscular HGB Conc 31.9 g/dL (30-55); Mean Corpuscular Hemoglobin 29.3 pg (27-33); Mean Platelet Volume 10.3 fL (7.4-10.4); Monocytes # 0.7 10^3/uL (0.2-0.9); Monocytes % 7.8 %; Neutrophils # 5.88 10^3/uL (1.8-7.7); Nucleated Red Blood Cells % 0 %; Platelet Count 188 10^3/cmm (157-399); Red Cell Distribution Width 14.1 % (12.1-15.1); White Blood Count 8.41 10^3/uL (3.29-11.43)
[2024-08-30 03:55] VITALS: BP 175/102; PULSE 80; RESP 17; TEMP 36.6; O2SAT 90
[2024-08-30 04:28] LABS: Blood Urea Nitrogen 16 mg/dL (8-23); Calcium 8.8 mg/dL (8.5-10.5); Carbon Dioxide 25 mmol/L (22-29); Creatinine Clr Calc Pharmacy 99.6125; Glucose 106 mg/dL (65-115)
[2024-08-30 05:52] LABS: Anion Gap 16.3 (5-19); Chloride 105 mmol/L (98-107); Osmolality Calculated 298 mOsm/kg (285-295); Potassium 3.3 mmol/L (3.5-5.1); Sodium 143 mmol/L (136-145)
[2024-08-30 06:22] LABS: Glucose Point of Care 134 mg/dL (70-110)
[2024-08-30 07:40] VITALS: BP 188/95; PULSE 72; RESP 17; TEMP 36.8; O2SAT 91
[2024-08-30] MEDS: sodium chloride 0.9% 1,000 ML 75 ML IV (07:44)
[2024-08-30] MEDS: clopidogrel 75 mg Tablet PO (07:45)
--- NOTE | 2024-08-30 09:17 | PC.NURSE ---
Addendum entered by Fany Youssef LPN 08/30/24 09:29: Vilma returned by phone call. Updated on bedside swallow study. Vilma expected to be here within the next hour. Original Note: This nurse had clarification operator try to reach elementary special education teacher speech therapist, Vilma Loving, however, there was no answer. Pt is needed to see Speech Therapy for eval today. This nurse performed bedside swallow study. Pt has some pocketing of food to the left cheek, but otherwise had no difficulty swallowing. No choking, coughing or clearing of throat after swallowing thin liquids, jello and pudding.
[2024-08-30 11:33] LABS: Glucose Point of Care 187 mg/dL (70-110)
[2024-08-30 11:56] VITALS: BP 182/93; PULSE 76; RESP 18; TEMP 36.7; O2SAT 91
[2024-08-30] MEDS: insulin lispro 100 unit/1 mL SUBCUT (12:03)
--- NOTE | 2024-08-30 14:44 | P.PN_ITS ---
Subjective 2 Subjective: Patient was seen this morning, currently alert oriented x 3, no commands, does have left facial droop, does have slurring of his words no significant receptive aphasia, he does have more motion in his left hand, he has improving strength of left lower extremity, he is still grappling with his diagnosis, discussed his MRI findings, CTA head and neck findings, discussed starting anticoagulant therapy at 48 hours given his history of atrial fibrillation, he voiced understanding, presents her, agreed to proceed Vitals/I&O/Wt Last Vital Signs Temp 98.0 F 08/30/24 11:56 Pulse 76 08/30/24 11:56 Resp 18 08/30/24 11:56 BP 182/93 08/30/24 11:56 Pulse Ox 91 08/30/24 11:56 O2 Del Method Room Air 08/30/24 11:56 08/29/24 08/30/24 08/30/24 22:59 06:59 14:59 Intake Total 1360 / 1360 Output Total 325 / 325 550 / 550 Balance -325 / -325 810 / 810 Weight last 48 hrs Weight 94.937 kg Weight 95.345 kg Weight 99.79 kg Physical Exam 2 Const: COMMON NORMALS: no acute distress and patient oriented x3 Resp: COMMON NORMALS: normal respiratory effort, No retractions, No use of accessory muscles and clear to auscultation bilaterally AUSCULTATION: clear to auscultation bilaterally Cardio: COMMON NORMALS: regular rate, regular rhythm, S1 normal heart sound present and S2 normal heart sound present RATE: regular rate RHYTHM: r egular rhythm HEART SOUNDS: S1 normal heart sound present and S2 normal heart sound present GI: COMMON NORMALS: Normal to inspection, nondistended, normoactive bowel sounds present and non-tender Extremity: COMMON NORMALS: no pedal edema Neuro: COMMON NORMALS: patient oriented x3 Psych: COMMON NORMALS: mental status grossly normal Data 08/30/24 02:24 08/30/24 02:24 A&P Assessment and plan (1) Acute CVA (cerebrovascular accident): (2) Hypertension: (3) Atherosclerosis of coronary artery of [place] heart without angina pectoris: (4) Hx of CABG: (5) Diabetes: (6) BMI 31.0-31.9,adult: Plan Acute CVA -With left-sided deficits, left upper left lower extremity weakness, left facial droop, slurring of his words, some productive and receptive aphasia MRI brain MR/MR head wo con* [id number] IMPRESSION: Acute right-sided pontine infarct - CT head CT/CT head thrombolytic [id number] IMPRESSION: 1. Vague area of low density involving the right side of the braden suggesting subacute infarct. This area has decreased in density over the past 2 days. A CTA performed 2 days earlier demonstrates severe bilateral vertebral artery stenoses. 2. Mild cerebral atrophy - Recent history of CT A CT/CT angio headneck* [id number] Impression: 1. Normal common carotid and internal carotid circulation in the neck with minimal narrowing from carotid calcification and stenosis at the bifurcations. 2. Normal vertebral artery circulation. 3. Normal intracerebral circulation with no evidence of stenosis or obstruction of the intracerebral circulation. -Back in 03/2022 patient had an episode of A-fib with RVR, when he had pneumonia, converted back to normal sinus rhythm -He subsequently followed up with cardiology, had an event monitor placed, no significant atrial fibrillation events, not deemed a candidate for anticoagulant therapy - Repeat CTA head and neck 08/29/2024 did not show any lesions amenable to embolectomy given history of atrial fibrillation, new onset left-sided hemiplegia Plan -Will start Eliquis in 48 hours -Aspirin -Plavix last dose today -Statin -Allow for permissive hypertension treat if systolic greater than 210 or diastolic greater than 120 -IV fluids -Will consider starting anticoagulant therapy in 48 hours -Recent history of echo with bubble within normal limits, no intracardiac shunting -Full code -Lovenox for DVT prophylaxis History of atrial fibrillation - Anticoagulation hopefully in 48 hours, Eliquis therapy - Continue beta-bharti once prudent Type 2 diabetes mellitus, low-dose sliding scale History of hypertension History of CAD History of CABG Hyperlipidemia Obstructive sleep apnea, unable to tolerate CPAP History of alpha-1 antitrypsin deficiency PDMP PDMP Reviewed: Not Reviewed Attestations 2 Medical Necessity Statement*: Patient requires hospitalization for acute pontine CVA Diagnoses Acute CVA (cerebrovascular accident) I63.9 Primary hypertension I10 Hypertension type: primary hypertension Atherosclerosis of [place] coronary artery of [place] heart without angina pectoris I25.10 Coronary Disease-Associated Artery/Lesion type: [place] artery Hx of CABG Z95.1 Type 2 diabetes mellitus with hyperglycemia, without long-term current use of insulin E11.65 Diabetes mellitus type: type 2 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
[2024-08-30 16:00] VITALS: BP 191/96; PULSE 72; RESP 16; TEMP 36.8; O2SAT 92
[2024-08-30 16:36] LABS: Glucose Point of Care 141 mg/dL (70-110)
[2024-08-30] MEDS: pantoprazole 40 mg SDV IVP (17:03)
[2024-08-30] MEDS: aspirin 81 mg EC Tablet PO (17:03)
[2024-08-30] MEDS: enoxaparin 40 mg/0.4 mL Syringe SUBCUT (17:03)
[2024-08-30 19:47] VITALS: BP 190/101; PULSE 76; RESP 18; TEMP 37.1; O2SAT 92
[2024-08-30 20:08] LABS: Glucose Point of Care 135 mg/dL (70-110)
[2024-08-30 21:22] VITALS: PULSE 71
[2024-08-30] MEDS: diphenhydrAMINE 50 mg Capsule PO (22:03)
[2024-08-31] VITALS (12 sets, daily range): BP systolic 175–198; BP diastolic 86–108; PULSE 62–89; RESP 16–18; TEMP 36.8–37.2; O2SAT 87–98
[2024-08-31] MEDS: sodium chloride 0.9% 1,000 ML 50 ML IV (01:01)
[2024-08-31 04:00] LABS: Basophils % 0.4 %; Eosinophils # 0.1 10^3/uL (0.0-0.8); Eosinophils % 1.1 %; Hematocrit 39.8 % (37-53); Lymphocytes # 1.7 10^3/uL (0.8-4.8); Lymphocytes % 19.1 %; Mean Corpuscular HGB Conc 32.2 g/dL (30-55); Mean Corpuscular Hemoglobin 29.8 pg (27-33); Mean Corpuscular Volume 92.6 fl (82-101); Mean Platelet Volume 9.9 fL (7.4-10.4); Monocytes # 0.9 10^3/uL (0.2-0.9); Monocytes % 9.7 %; Neutrophils # 6.25 10^3/uL (1.8-7.7); Neutrophils % 69.4 %; Nucleated Red Blood Cells % 0 %; Platelet Count 164 10^3/cmm (157-399); Red Cell Distribution Width 13.9 % (12.1-15.1); White Blood Count 9.01 10^3/uL (3.29-11.43)
[2024-08-31 04:22] LABS: Anion Gap 13.4 (5-19); Blood Urea Nitrogen 15 mg/dL (8-23); Calcium 8.5 mg/dL (8.5-10.5); Carbon Dioxide 26 mmol/L (22-29); Chloride 104 mmol/L (98-107); Creatinine Clr Calc Pharmacy 88.5445; Glucose 121 mg/dL (65-115); Osmolality Calculated 292 mOsm/kg (285-295); Potassium 3.4 mmol/L (3.5-5.1); Sodium 140 mmol/L (136-145)
[2024-08-31 06:46] LABS: Glucose Point of Care 120 mg/dL (70-110)
[2024-08-31] MEDS: ipratropium-albuterol 3 mL Neb INHALATION ×2 (08:27→19:46)
--- NOTE | 2024-08-31 09:44 | PC.CHAP ---
Pastoral Care Encounter/Spiritual Assessment Type of Contact [] Declined director of sleep visit [] Patient/Family/Request visit [] Outpatient visit [] Follow-up visit [] Physician referral [] Code/Alert [x] Routine visit [] Staff referral [] Actively dying [] Patient sleeping [] Family support [] [] Out of room [] Palliative care [] [] Receiving care in room [] Pre-surgical visit [] Trauma [] Long length of stay [] ICU visit [] Other: Relational/Emotional Strength [] Patient feels connected with others/family/visitors/staff [] Distress [] Loneliness/isolation [] Abandonment Spirituality of Patient [x] Person of Sarita [] Attends [employer] Witness of their Sarita [x] Believes in Prayer [] Reads Bible or Holiness materials [] There are Spiritual issues to be addressed Cvt Tech Interventions [x] Prayer [x] Active listening [] Non-anxious presence [] Spiritual/emotional support [] Crisis/trauma care [] Spiritual counseling [] Bereavement support [] Provided bereavement packet [] Provided Bible/devotional materials [] Provided toy/stuffed animal, coloring book to patient or family member [] Provided Communion [] Anointing/[place] [] Salvation [x] Completed spiritual assessment [] Other: Impact on Illness or Injury [] Angry [] Fearful [] Anxious [] Often cries [] Exhaustion [] Unable to work [] Unable to attend anabaptist [] Unable to walk/stand [] Unable to read [] Unable to drive [] Unable to eat/drink [] Unable to sleep [] Unable to be with family [] Patient intubated [] Other: Summary Time spent with patient 5 min
[2024-08-31] MEDS: apixaban 5 mg Tablet PO ×2 (09:48→20:19)
[2024-08-31 11:35] LABS: Glucose Point of Care 153 mg/dL (70-110)
[2024-08-31] MEDS: insulin lispro 100 unit/1 mL SUBCUT (12:02)
--- NOTE | 2024-08-31 13:15 | PC.NURSE ---
prize coordinator rounds 1230- gave patient stroke education book. Left sided upper extremity weakness, left leg is stronger than left arm but weaker than the right leg, he says sensation is the same on both sides from his face to his feet, he has some left facial droop and he states that makes it somewhat harder to speak, he states he is swallowing ok.
--- NOTE | 2024-08-31 13:32 | PC.SOCIAL ---
IMM Updated IMM dated and initialed, Copy given to patient and copy placed in chart.
--- NOTE | 2024-08-31 15:10 | P.PN_ITS ---
Subjective 2 Subjective: Patient was seen this morning, currently alert x 3, following all commands, continues to have left facial droop although improving, left hand coordination improving, strength improving although diminished significantly compared to the right, left lower extremity strength is improving Vitals/I&O/Wt Last Vital Signs Temp 98.8 F 08/31/24 11:39 Pulse 72 08/31/24 11:39 Resp 18 08/31/24 11:39 BP 176/86 08/31/24 11:39 Pulse Ox 95 08/31/24 11:39 O2 Del Method Nasal Cannula 08/31/24 11:39 O2 Flow Rate 3 08/31/24 08:32 08/31/24 08/31/24 08/31/24 06:59 14:59 22:59 Intake Total 706.25 / 2960.00 600 / 600 Output Total 750 / 1750 450 / 450 Balance -43.75 / 1210.00 150 / 150 Weight last 48 hrs Weight 97.267 kg Weight 94.937 kg Weight 95.345 kg Physical Exam 2 Const: COMMON NORMALS: no acute distress and patient oriented x3 Resp: COMMON NORMALS: normal respiratory effort, No retractions and No use of accessory muscles AUSCULTATION: wheezes Cardio: COMMON NORMALS: regular rate, regular rhythm, S1 normal heart sound present and S2 normal heart sound present RATE: regular rate RHYTHM: r egular rhythm HEART SOUNDS: S1 normal heart sound present and S2 normal heart sound present GI: COMMON NORMALS: Normal to inspection, nondistended, normoactive bowel sounds present and non-tender Extremity: COMMON NORMALS: no pedal edema Neuro: COMMON NORMALS: patient oriented x3 Psych: COMMON NORMALS: mental status grossly normal Data 08/31/24 03:16 08/31/24 03:16 A&P Assessment and plan (1) Acute CVA (cerebrovascular accident): (2) Hypertension: (3) Atherosclerosis of coronary artery of [place] heart without angina pectoris: (4) Hx of CABG: (5) Diabetes: (6) BMI 31.0-31.9,adult: Plan Acute CVA -With left-sided deficits, left upper left lower extremity weakness, left facial droop, slurring of his words, some productive and receptive aphasia MRI brain MR/MR head wo con* [id number] IMPRESSION: Acute right-sided pontine infarct - CT head CT/CT head thrombolytic [id number] IMPRESSION: 1. Vague area of low density involving the right side of the braden suggesting subacute infarct. This area has decreased in density over the past 2 days. A CTA performed 2 days earlier demonstrates severe bilateral vertebral artery stenoses. 2. Mild cerebral atrophy - Recent history of CT A CT/CT angio headneck* [id number] Impression: 1. Normal common carotid and internal carotid circulation in the neck with minimal narrowing from carotid calcification and stenosis at the bifurcations. 2. Normal vertebral artery circulation. 3. Normal intracerebral circulation with no evidence of stenosis or obstruction of the intracerebral circulation. -Back in 03/2022 patient had an episode of A-fib with RVR, when he had pneumonia, converted back to normal sinus rhythm -He subsequently followed up with cardiology, had an event monitor placed, no significant atrial fibrillation events, not deemed a candidate for anticoagulant therapy - Repeat CTA head and neck 08/29/2024 did not show any lesions amenable to embolectomy given history of atrial fibrillation, new onset left-sided hemiplegia Plan - Eliquis in 48 hours -Aspirin -Statin -Allow for permissive hypertension treat if systolic greater than 210 or diastolic greater than 120 -Will consider starting anticoagulant therapy in 48 hours -Recent history of echo with bubble within normal limits, no intracardiac shunting -Full code -Lovenox for DVT prophylaxis History of atrial fibrillation - Anticoagulation hopefully in 48 hours, Eliquis therapy - Continue beta-bharti once prudent Type 2 diabetes mellitus, low-dose sliding scale History of hypertension History of CAD History of CABG Hyperlipidemia Obstructive sleep apnea, unable to tolerate CPAP History of alpha-1 antitrypsin deficiency wheezing today, will hold off on steroids, given cva, aspiration precautions, speech therapy evals, dysphagia diet PDMP PDMP Reviewed: Not Reviewed Attestations 2 Medical Necessity Statement*: patient requires hospitalization for acute CVA Diagnoses Acute CVA (cerebrovascular accident) I63.9 Primary hypertension I10 Hypertension type: primary hypertension Atherosclerosis of [place] coronary artery of [place] heart without angina pectoris I25.10 Coronary Disease-Associated Artery/Lesion type: [place] artery Hx of CABG Z95.1 Type 2 diabetes mellitus with hyperglycemia, without long-term current use of insulin E11.65 Diabetes mellitus type: type 2 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
[2024-08-31] MEDS: acetaminophen 325 mg Tablet 650 MG PO (15:33)
[2024-08-31 16:28] LABS: Glucose Point of Care 121 mg/dL (70-110)
[2024-08-31] MEDS: pantoprazole 40 mg SDV IVP (17:16)
[2024-08-31] MEDS: aspirin 81 mg EC Tablet PO (17:16)
[2024-08-31] MEDS: diphenhydrAMINE 50 mg Capsule PO (20:19)
[2024-08-31 20:49] LABS: Glucose Point of Care 179 mg/dL (70-110)
[2024-09-01] VITALS (9 sets, daily range): BP systolic 81–190; BP diastolic 69–98; PULSE 64–86; RESP 16–18; TEMP 36.4–37.2; O2SAT 90–96
[2024-09-01 02:45] LABS: Basophils % 0.5 %; Eosinophils # 0.2 10^3/uL (0.0-0.8); Eosinophils % 1.9 %; Hematocrit 38.9 % (37-53); Lymphocytes # 1.6 10^3/uL (0.8-4.8); Lymphocytes % 18.6 %; Mean Corpuscular HGB Conc 32.6 g/dL (30-55); Mean Corpuscular Hemoglobin 29.5 pg (27-33); Mean Corpuscular Volume 90.3 fl (82-101); Mean Platelet Volume 9.9 fL (7.4-10.4); Monocytes # 0.8 10^3/uL (0.2-0.9); Neutrophils # 6.03 10^3/uL (1.8-7.7); Neutrophils % 69.8 %; Nucleated Red Blood Cells % 0 %; Platelet Count 158 10^3/cmm (157-399); Red Blood Count 4.31 10^6/uL (3.85-5.65); Red Cell Distribution Width 13.9 % (12.1-15.1); White Blood Count 8.64 10^3/uL (3.29-11.43)
[2024-09-01 03:04] LABS: Alanine Aminotransferase 22 U/L (0-41); Albumin Level 3.7 g/dL (3.5-5.2); Alkaline Phosphatase 69 U/L (40-130); Anion Gap 13.6 (5-19); Aspartate Amino Transferase 16 U/L (0-40); Blood Urea Nitrogen 15 mg/dL (8-23); Calcium 8.4 mg/dL (8.5-10.5); Carbon Dioxide 25 mmol/L (22-29); Chloride 103 mmol/L (98-107); Creatinine Clr Calc Pharmacy 89.5369; Globulin 2.5 g/dL (1.3-4.6); Glucose 122 mg/dL (65-115); Magnesium 1.9 mg/dL (1.7-2.3); Osmolality Calculated 288 mOsm/kg (285-295); Potassium 3.6 mmol/L (3.5-5.1); Sodium 138 mmol/L (136-145); Total Bilirubin 0.6 mg/dL (0.15-1.2); Total Protein 6.2 g/dL (6.6-8.7)
[2024-09-01 06:34] LABS: Glucose Point of Care 133 mg/dL (70-110)
--- NOTE | 2024-09-01 07:34 | FL_ITS ---
WS: [id number] FL barium swallow modifd [id number] REASON FOR EXAM: Oral dysphagia FLUOROSCOPY TIME: 2min [id number] # OF SPOT FILMS: 0 TECHNIQUE: Examination was supervised by the speech therapy department. Patient was examined in the sitting upright lateral projection. The swallowing of varying consistencies of barium was monitored fluoroscopically and video recorded. FINDINGS: There is no penetration of contrast into the laryngeal vestibule. There is no aspiration. Barium tablet showed delayed in the distal esophagus before passage into the stomach. It was not clear if this was due to a narrowing or dysmotility. FL/FL barium swallow modifd [id number] IMPRESSION: Detailed report of the swallowing will be rendered by the speech therapy depart ment. Consideration of a formal esophagram may be considered to better evaluate the d istal esophagus as clinically warranted.
[2024-09-01] MEDS: apixaban 5 mg Tablet PO ×2 (09:09→20:21)
--- NOTE | 2024-09-01 11:46 | PC.NURSE ---
technical project coordinator rounds at 1010- patient sitting in the chair, had a long talk and answered all questions. Talked to RN about getting an arm/shoulder sling for left arm.
[2024-09-01 12:10] LABS: Glucose Point of Care 151 mg/dL (70-110)
[2024-09-01] MEDS: insulin lispro 100 unit/1 mL SUBCUT (12:33)
--- NOTE | 2024-09-01 13:25 | PM.PN ---
Subjective Subjective: Patient was seen this morning, currently alert oriented x 3, following all commands, no fevers, chills, no cough, his left upper left lower extremity weakness is improving Vitals/I&O/Wt Last Vital Signs Temp 99.0 F 09/01/24 11:57 Pulse 65 09/01/24 12:46 Resp 16 09/01/24 12:46 BP 165/88 09/01/24 11:57 Pulse Ox 93 09/01/24 12:46 O2 Del Method Nasal Cannula 09/01/24 12:46 O2 Flow Rate 2 09/01/24 12:46 08/31/24 09/01/24 09/01/24 22:59 06:59 14:59 Intake Total 840 / 1440 960 / 960 Output Total 625 / 1075 475 / 1550 450 / 450 Balance 215 / 365 -475 / -110 510 / 510 Weight last 48 hrs Weight 95.708 kg Weight 97.267 kg Physical Exam Const: COMMON NORMALS: no acute distress and patient oriented x3 Resp: COMMON NORMALS: normal respiratory effort, No retractions, No use of accessory muscles and clear to auscultation bilaterally AUSCULTATION: clear to auscultation bilaterally Cardio: COMMON NORMALS: regular rate, regular rhythm, S1 normal heart sound present and S2 normal heart sound present RATE: regular rate RHYTHM: regular rhythm HEART SOUNDS: S1 normal heart sound present and S2 normal heart sound present GI: COMMON NORMALS: Normal to inspection, nondistended, normoactive bowel sounds present and non-tender Extremity: COMMON NORMALS: no pedal edema Neuro: COMMON NORMALS: patient oriented x3 Psych: COMMON NORMALS: mental status grossly normal Data 09/01/24 02:37 09/01/24 02:37 A&P Assessment and plan (1) Acute CVA (cerebrovascular accident): (2) Hypertension: (3) Atherosclerosis of coronary artery of [place] heart without angina pectoris: (4) Hx of CABG: (5) Diabetes: (6) BMI 31.0-31.9,adult: Plan Acute CVA -With left-sided deficits, left upper left lower extremity weakness, left facial droop, slurring of his words, some productive and receptive aphasia MRI brain MR/MR head wo con* [id number] IMPRESSION: Acute right-sided pontine infarct - CT head CT/CT head thrombolytic [id number] IMPRESSION: 1. Vague area of low density involving the right side of the braden suggesting subacute infarct. This area has decreased in density over the past 2 days. A CTA performed 2 days earlier demonstrates severe bilateral vertebral artery stenoses. 2. Mild cerebral atrophy - Recent history of CT A CT/CT angio headneck* [id number] Impression: 1. Normal common carotid and internal carotid circulation in the neck with minimal narrowing from carotid calcification and stenosis at the bifurcations. 2. Normal vertebral artery circulation. 3. Normal intracerebral circulation with no evidence of stenosis or obstruction of the intracerebral circulation. -Back in 03/2022 patient had an episode of A-fib with RVR, when he had pneumonia, converted back to normal sinus rhythm -He subsequently followed up with cardiology, had an event monitor placed, no significant atrial fibrillation events, not deemed a candidate for anticoagulant therapy - Repeat CTA head and neck 08/29/2024 did not show any lesions amenable to embolectomy given history of atrial fibrillation, new onset left-sided hemiplegia Plan - Eliquis has been started -Aspirin -Statin - Completed permissive hypertension - Will start him on metoprolol -Recent history of echo with bubble within normal limits, no intracardiac shunting -Full code -Lovenox for DVT prophylaxis History of atrial fibrillation - Anticoagulation hopefully in 48 hours, Eliquis therapy - Patient takes metoprolol at home, will resume Type 2 diabetes mellitus, low-dose sliding scale History of hypertension History of CAD History of CABG Hyperlipidemia Obstructive sleep apnea, unable to tolerate CPAP History of alpha-1 antitrypsin deficiency wheezing today has resolved, will hold off on steroids, given cva, aspiration precautions, speech therapy evals, dysphagia diet, modified barium swallow PDMP PDMP Reviewed: Not Reviewed Attestations Medical Necessity Statement*: Patient requires hospitalization for acute CVA Coding Level of Care Code 77525 Diagnoses Acute CVA (cerebrovascular accident) I63.9 Primary hypertension I10 Hypertension type: primary hypertension Atherosclerosis of [place] coronary artery of [place] heart without angina pectoris I25.10 Coronary Disease-Associated Artery/Lesion type: [place] artery Hx of CABG Z95.1 Type 2 diabetes mellitus with hyperglycemia, without long-term current use of insulin E11.65 Diabetes mellitus type: type 2 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
[2024-09-01] MEDS: metoprolol tartrate 25 mg Tablet 12.5 MG PO (14:56)
[2024-09-01 16:38] LABS: Glucose Point of Care 119 mg/dL (70-110)
[2024-09-01] MEDS: aspirin 81 mg EC Tablet PO (17:44)
[2024-09-01] MEDS: pantoprazole 40 mg SDV IVP (17:45)
[2024-09-01] MEDS: NIFEdipine ER (24 hr) 30 mg Tablet 60 MG PO (17:45)
[2024-09-01 20:32] LABS: Glucose Point of Care 168 mg/dL (70-110)
[2024-09-01] MEDS: diphenhydrAMINE 50 mg Capsule PO (22:05)
[2024-09-02] VITALS (17 sets, daily range): BP systolic 130–177; BP diastolic 74–88; PULSE 58–83; RESP 15–18; TEMP 36.6–36.9; O2SAT 88–95
[2024-09-02] MEDS: metoprolol tartrate 25 mg Tablet 12.5 MG PO ×2 (01:19→13:28)
[2024-09-02 06:44] LABS: Glucose Point of Care 149 mg/dL (70-110)
[2024-09-02] MEDS: ipratropium-albuterol 3 mL Neb INHALATION (08:00)
[2024-09-02] MEDS: NIFEdipine ER (24 hr) 30 mg Tablet 60 MG PO (08:34)
[2024-09-02] MEDS: apixaban 5 mg Tablet PO ×2 (08:34→20:34)
[2024-09-02] MEDS: insulin lispro 100 unit/1 mL SUBCUT ×3 (08:35→17:12)
[2024-09-02] MEDS: acetaminophen 325 mg Tablet 650 MG PO (08:45)
--- NOTE | 2024-09-02 09:41 | PC.SOCIAL ---
IMM Update Pg 2 of IMM updated. Copy provided at bedside.
[2024-09-02 10:57] LABS: Glucose Point of Care 158 mg/dL (70-110)
--- NOTE | 2024-09-02 11:52 | P.DS_ITS ---
Discharge Providers Date of Admission: 08/29/24 12:13 Date of Discharge: September 02, 2024 Attending Provider at Admission: Real Nevarez MD Attending Provider at Discharge: Real Nevarez MD Primary Care Provider: Melissa Garcia MD Diagnoses at Discharge Discharge Diagnosis (1) Acute CVA (cerebrovascular accident): Status: Acute (2) Hypertension: Status: Chronic Qualifiers: Hypertension type: primary hypertension Qualified Code(s): I10 - Essential (primary) hypertension (3) Atherosclerosis of coronary artery of [place] heart without angina pectoris: Status: Chronic Qualifiers: Coronary Disease-Associated Artery/Lesion type: [place] artery Qualified Code(s): I25.10 - Atherosclerotic heart disease of [place] coronary artery without angina pectoris (4) Hx of CABG: Status: Chronic (5) Diabetes: Status: Chronic Qualifiers: Diabetes mellitus complication status: with hyperglycemia Diabetes mellitus terminal gauger supervisor insulin use: without penitentiary use Diabetes mellitus type: type 2 Qualified Code(s): E11.65 - Type 2 diabetes mellitus with hyperglycemia (6) BMI 31.0-31.9,adult: Status: Acute Reason for Visit Reason for Visit: STROKE ALERT Hospital Course Hospital Course Sourav Anders is a 69 year old male with a past medical history of CAD, history of CABG, asthma, COPD, diabetes, hypertension, hyperlipidemia, struct of sleep apnea, alpha-1 antitrypsin deficiency, who presents to [facility] for left-sided weakness, left-sided facial droop, slurring of his words. Patient was recently discharged from the hospital for acute CVA with left-sided weakness, he was discharged on aspirin, Plavix, patient reports that his symptoms almost resolved back to normal with mild left upper extremity weakness, he was discharged home with a close follow-up with primary care, discharged to his son's home, he tells me that before going to bed he had very mild left upper extremity weakness, but felt like he was back to normal, back to his normal self, he went to bed about 10 PM last night, he woke up this morning at about 8 AM or so and when he went to the bathroom he could not do so due to severe left- sided weakness, left upper and left lower extremity weakness, facial droop, slurring his words, some degree of receptive aphasia. Patient's NIH stroke scale was 11-12, patient was not deemed a TNKase candidate, by ER provider after discussion with neurology, last known well normal 10 PM 08/28/2024, patient was found to have findings concerning for bilateral severe vertebral artery stenosis, ER provider discussed this with neurology, discussed that patient was not a candidate for any vascular intervention. Hospitalist team was called for admission, currently patient is alert oriented x 3, following all commands, left arm no effort against gravity, left leg, no effort against gravity, 1 limb ataxia, mild to moderate sensory loss left lower extremity, mild to moderate aphasia, mild to moderate dysarthria, partial paralysis lower face, mild slurring of his words, no horizontal gaze palsy, no visual loss, NIH stroke scale 11-12, blood pressure 161/100, respiratory 19, pulse 83, normal sinus rhythm, blood glucose 144 - With history of atrial fibrillation - He is symptoms returning back to near normal on discharge, 08/28/2024 - Last known well normal at 10 PM 08/28/2024 - CT head findings of as below - My concern would be for any embolic disease that would be amenable to embolectomy, as he has significant left-sided deficits, his NIH stroke scale is 11, I am highly concerned that he might have possible MCA occlusion - As he is within window for embolectomy, I have ordered a CTA head and neck - I discussed with the ER physician my concerns, recently discovered history of atrial fibrillation, his significant NIH stroke stroke scale, within embolectomy window, he could possibly be a candidate for embolectomy depending on what his CTA head and neck showed # Will await with what CTA head and neck shows, to see if he is an embolectomy candidate - CTA head and neck did not show any large vessel occlusion or thrombus Patient was admitted to [facility] for acute CVA -With left-sided deficits, left upper left lower extremity weakness, left facial droop, slurring of his words, some productive and receptive aphasia MRI brain MR/MR head wo con* [id number] IMPRESSION: Acute right-sided pontine infarct - CT head CT/CT head thrombolytic [id number] IMPRESSION: 1. Vague area of low density involving the right side of the braden suggesting subacute infarct. This area has decreased in density over the past 2 days. A CTA performed 2 days earlier demonstrates severe bilateral vertebral artery stenoses. 2. Mild cerebral atrophy - Recent history of CT A CT/CT angio headneck* [id number] Impression: 1. Normal common carotid and internal carotid circulation in the neck with minimal narrowing from carotid calcification and stenosis at the bifurcations. 2. Normal vertebral artery circulation. 3. Normal intracerebral circulation with no evidence of stenosis or obstruction of the intracerebral circulation. -Back in 03/2022 patient had an episode of A-fib with RVR, when he had pneumonia, converted back to normal sinus rhythm -He subsequently followed up with cardiology, had an event monitor placed, no significant atrial fibrillation events, not deemed a candidate for anticoagulant therapy - Repeat CTA head and neck 08/29/2024 did not show any lesions amenable to embolectomy given history of atrial fibrillation, new onset left-sided hemiplegia Modified barium swallow FINDINGS: There is no penetration of contrast into the laryngeal vestibule. There is no aspiration. Barium tablet showed delayed in the distal esophagus before passage into the stomach. It was not clear if this was due to a narrowing or dysmotility. FL/FL barium swallow modifd [id number] IMPRESSION: Detailed report of the swallowing will be rendered by the speech therapy department. Consideration of a formal esophagram may be considered to better evaluate the distal esophagus as clinically warranted. -Was monitored as inpatient -after 48 had Eliquis therapy started -discharged aspirin - Completed permissive hypertension - Received PT OT -Overall slowly clinically improved, continues to have left upper extremity weakness strength 2 out of 5, continues to have left lower extremity weakness 3 out of 5, trouble coordinating, no word finding difficulty, no slurring of his words, a slight left facial droop - Discharge to rehab facility - Will slowly titrate blood pressure over the next few weeks -discharged with aspirin 81mg -discharged with crestor, will have to trial increasing in dose, to decrease future stroke risk, patient does have a history of statin induced myalgias Patient's hospitalization was complicated with COPD exacerbation and possible aspiration - Managed on IV antibiotics - IV steroids - Overall clinically improved - Will be discharged with prednisone burst, oral antibiotics For history of atrial fibrillation - Discharged with event monitor in place - Discharged with metoprolol - Discharged with Eliquis Discharged with dysphagia diet Physical Exam Const: COMMON NORMALS: no acute distress and patient oriented x3 Resp: COMMON NORMALS: normal respiratory effort, No retractions, No use of accessory muscles and clear to auscultation bilaterally AUSCULTATION: clear to auscultation bilaterally Cardio: COMMON NORMALS: regular rate, regular rhythm, S1 normal heart sound present and S2 normal heart sound present RATE: regular rate RHYTHM: regular rhythm HEART SOUNDS: S1 normal heart sound present and S2 normal heart sound present GI: COMMON NORMALS: Normal to inspection, nondistended, normoactive bowel sounds present and non-tender Extremity: COMMON NORMALS: no pedal edema Neuro: COMMON NORMALS: patient oriented x3 OTHER: On discharge patient has persistent left upper weakness, strength 2 out of 5 compared to 5 out of 5 on the right Left lower extremity strength, 3 out of 5 compared to 5 of 5 in the right No paresthesias No choking, no coughing - No significant word finding difficulty , no slurring of his words - Does have a small left facial droop pr esent Psych: COMMON NORMALS: mental status grossly normal Discharge Data Studies Completed and Pending Completed Studies During Hospitalization Category Date Time Status CT angio head neck [CT angio headneck* [id number]] Cat Scan 08/29/24 13:[address] head thrombolytic [id number] Stat Cat Scan 08/29/24 10:57 Completed Modified barium swallow [FL barium swallow modifd [id number] Exams 09/01/24 07:34 Completed ] Routine MR head wo con* [id number] Stat MRI 08/29/24 13:27 Completed Radiology Impressions Head CT 08/29/24 10:57 IMPRESSION: 1. Vague area of low density involving the right side of the braden suggesting subacute infarct. This area has decreased in density over the past 2 days. A CTA performed 2 days earlier demonstrates severe bilateral vertebral artery stenoses. 2. Mild cerebral atrophy ASSESSMENT: ASPECTS ([place] Stroke Program Early CT Score) is 10. ADDENDUM: 08/29/24 1116 COMMENT: THIS REPORT CONTAINS FINDINGS THAT MAY BE CRITICAL TO PATIENT CARE. The exam findings were verbally communicated by me to MARSHA MCCULLOUGH via telephone conference at 11:15 AM CDT on 08/29/2024. The findings were acknowledged and understood. Head MRI 08/29/24 13:27 IMPRESSION: Acute right-sided pontine infarct Head/Neck CTA 08/29/24 13:54 IMPRESSION: No large vessel stenosis or occlusion. IMPRESSION: 1. Severe stenoses involving the distal portions of both vertebral arteries 2. Calcified bilateral carotid without significant stenosis REFERENCES: NASCET CRITERIA. The degree of stenosis in the cervical segment of the internal carotid artery is based on NASCET criteria. Normal is no stenosis. Mild is less than 50% stenosis. Moderate is 50-69% stenosis. Severe is 70% to 99% stenosis. Total occlusion is no detectable patent lumen. Modified Barium Swallow 09/01/24 07:34 IMPRESSION: Detailed report of the swallowing will be rendered by the speech therapy department. Consideration of a formal esophagram may be considered to better evaluate the distal esophagus as clinically warranted. Laboratory Results WBC 8.64 10^3/uL (3.29-11.43) 09/01/24 02:37 RBC 4.31 10^6/uL (3.85-5.65) 09/01/24 02:37 Hgb 12.70 g/dL (11.27-16.99) 09/01/24 02:37 Hct 38.9 % (37-53) 09/01/24 02:37 MCV 90.3 fl (82-101) 09/01/24 02:37 MCH 29.5 pg (27-33) 09/01/24 02:37 MCHC 32.6 g/dL (30-55) 09/01/24 02:37 RDW 13.9 % (12.1-15.1) 09/01/24 02:37 Plt Count 158 10^3/cmm (157-399) 09/01/24 02:37 MPV 9.9 fL (7.4-10.4) 09/01/24 02:37 Neut % (Auto) 69.8 % 09/01/24 02:37 Lymph % (Auto) 18.6 % 09/01/24 02:37 [place] % (Auto) 9.0 % 09/01/24 02:37 Eos % (Auto) 1.9 % 09/01/24 02:37 Baso % (Auto) 0.5 % 09/01/24 02:37 Neut # (Auto) 6.03 10^3/uL (1.8-7.7) 09/01/24 02:37 Lymph # (Auto) 1.6 10^3/uL (0.8-4.8) 09/01/24 02:37 Gooding # (Auto) 0.8 10^3/uL (0.2-0.9) 09/01/24 02:37 Eos # (Auto) 0.2 10^3/uL (0.0-0.8) 09/01/24 02:37 Baso # (Auto) 0.0 10^3/uL (0.0-0.1) 09/01/24 02:37 Nucleated RBC % (auto) 0 % 09/01/24 02:37 Nucleated RBCs # 0.0 /100WBC 09/01/24 02:37 PT 12.50 SECONDS (12.1-14.9) 08/29/24 11:10 INR 0.87 (0.8-1.2) 08/29/24 11:10 APTT 25.2 SECONDS (23.9-36.7) 08/29/24 11:10 Sodium 138 mmol/L (136-145) 09/01/24 02:37 Potassium 3.6 mmol/L (3.5-5.1) 09/01/24 02:37 Chloride 103 mmol/L (98-107) 09/01/24 02:37 Carbon Dioxide 25 mmol/L (22-29) 09/01/24 02:37 Anion Gap 13.6 (5-19) 09/01/24 02:37 BUN 15 mg/dL (8-23) 09/01/24 02:37 Creatinine 0.9 mg/dL (0.7-1.2) 09/01/24 02:37 GFR Calculation Not Reportable 09/01/24 02:37 Glucose 122 mg/dL (65-115) H 09/01/24 02:37 POC Glucose 158 mg/dL (70-110) H 09/02/24 10:52 Calculated Osmolality 288 mOsm/kg (285-295) 09/01/24 02:37 Calcium 8.4 mg/dL (8.5-10.5) L 09/01/24 02:37 Magnesium 1.9 mg/dL (1.7-2.3) 09/01/24 02:37 Total Bilirubin 0.6 mg/dL (0.15-1.2) 09/01/24 02:37 AST 16 U/L (0-40) 09/01/24 02:37 ALT 22 U/L (0-41) 09/01/24 02:37 Alkaline Phosphatase 69 U/L (40-130) 09/01/24 02:37 Total Protein 6.2 g/dL (6.6-8.7) L 09/01/24 02:37 Albumin 3.7 g/dL (3.5-5.2) 09/01/24 02:37 Globulin 2.5 g/dL (1.3-4.6) 09/01/24 02:37 Triglycerides 194 mg/dL (0-150) H 08/29/24 11:10 Cholesterol 165 mg/dL (0-200) 08/29/24 11:10 LDL Cholesterol, Calc 96 mg/dL (50-129) 08/29/24 11:10 HDL Cholesterol 30 mg/dL (60-100) L 08/29/24 11:10 LDL/HDL Ratio 3.20 RATIO (0.00-3.22) 08/29/24 11:10 Cholesterol/HDL Ratio 5.50 mg/dL (1.0-5.00) H 08/29/24 11:10 TSH 1.10 uIU/mL (0.27-4.20) 08/29/24 11:10 Urine Color Yellow (Yellow) 08/29/24 11:42 Urine Appearance Clear (CLEAR) 08/29/24 11:42 Urine pH 7.5 (5-7) 08/29/24 11:42 Ur Specific [place] 1.014 (1.005-1.030) 08/29/24 11:42 Urine Protein Negative (Negative) 08/29/24 11:42 Urine Glucose (UA) Negative (Normal) 08/29/24 11:42 Urine Ketones Trace (Negative) 08/29/24 11:42 Urine Blood Negative (Negative) 08/29/24 11:42 Urine Nitrate Negative (Negative) 08/29/24 11:42 Urine Bilirubin Negative (Negative) 08/29/24 11:42 Urine Urobilinogen 1.0 mg/dL (Negative) 08/29/24 11:42 Ur Leukocyte Esterase Negative (Negative) 08/29/24 11:42 Urine RBC 0-2 /hpf (0-2) 08/29/24 11:42 Urine WBC 0-5 /hpf (0-5) 08/29/24 11:42 Ur Squamous Epith Cells 0-5 /hpf (0-5) 08/29/24 11:42 Amorphous Sediment Not Reportable 08/29/24 11:42 Urine Bacteria None seen /hpf (NONE) 08/29/24 11:42 Hyaline Casts 0-4 /lpf H 08/29/24 11:42 Urine Opiates Screen Negative ng/mL (Negative) 08/29/24 11:42 Ur Barbiturates Screen Negative ng/mL (Negative) 08/29/24 11:42 Ur Phencyclidine Scrn Negative ng/mL (Negative) 08/29/24 11:42 Ur Amphetamines Screen Negative ng/mL (Negative) 08/29/24 11:42 U Benzodiazepines Scrn Negative ng/mL (Negative) 08/29/24 11:42 Urine Cocaine Screen Negative ng/mL (Negative) 08/29/24 11:42 U Marijuana (THC) Screen Negative ng/mL (Negative) 08/29/24 11:42 Vitals Last Vital Signs Temp 98.5 F 09/02/24 11:05 Pulse 66 09/02/24 11:05 Resp 15 09/02/24 11:05 BP 150/75 09/02/24 11:05 Pulse Ox 93 09/02/24 11:05 O2 Del Method Nasal Cannula 09/02/24 11:05 O2 Flow Rate 3 09/02/24 11:05 Discharge Plan Discharge Patient Disposition: Xfer SNF Condition: Stable Prescriptions: New Eliquis 5 mg Tablet 5 mg PO BID@0900,2100 30 Days Qty: 60 0RF insulin lispro [Humalog U-100 Insulin] 100 unit/mL Solution See Rx Instructions .ROUTE .COMPLEX Qty: 10 0RF Rx Instructions: Inject, 3 times daily, during meals, based on low-dose sliding scale prednisone 20 mg tablet 20 mg PO BID 5 Days Qty: 10 0RF amoxicillin-pot clavulanate 875-125 mg tablet 1 tab PO BID 5 Days Qty: 10 0RF Continued albuterol sulfate 90 mcg/actuation HFA aerosol inhaler 1 inh inhalation QID PRN (Reason: shortness of breath or wheezing) ascorbate calcium (vitamin C) 500 mg tablet 500 mg PO DAILY cholecalciferol (vitamin D3) 25 mcg (1,000 unit) capsule 25 mcg PO DAILY aspirin [Adult Low Dose Aspirin] 81 mg tablet,delayed release (DR/EC) 81 mg PO QPM red yeast rice 600 mg capsule 1,200 mg PO DAILY Rx Instructions: give with meal/snack nifedipine 30 mg tablet extended release 60 mg PO DAILY Qty: 180 3RF omega-3 fatty acids 1,000 mg Capsule 1,000 mg PO BID elderberry fruit 350 mg Capsule 350 mg PO DAILY fluticasone propion-salmeterol [Wixela Inhub] 500-50 mcg/dose Blister With Device 1 inh INHALATION BID metoprolol succinate 50 mg Tablet Extended Release 24 Hr 25 mg PO DAILY Superbeets 1 chewable tab PO DAILY Changed lisinopril 40 mg tablet 20 mg PO BID 30 Days Qty: 30 0RF rosuvastatin 10 mg Tablet 10 mg PO DAILY 30 Days Qty: 30 0RF Discontinued glimepiride 1 mg Tablet 1 mg PO QAM Rx Instructions: administer with breakfast clopidogrel 75 mg Tablet 75 mg PO DAILY Qty: 90 0RF Discharge Orders: Discharge Order (Routine); Ordered 09/03/24 Ordered By: Real Nevarez Other Ambulatory Orders: MCT/Event Monitor 30 Days (Routine) Timeframe: 1 Day Facility: [facility] - Location: Radiology Ordered By: Real Nevarez Referrals: Madison Burnham MD [Physician, Neurology] - 2 weeks Referral Note: We have notified your physician's clinic of the need for a follow-up appointment to be scheduled. If you have not heard from them within the next 2 business days, please call them directly. Melissa Garcia MD [Primary Care Provider, Family Practice] Krishna Martin MD [Physician, Cardiology] - 1 month Referral Note: afib, event monitor Discharge Diet: Cardiac Discharge Activity: Resume usual activity Patient Instructions: Prednisone (By mouth), Amoxicillin/Clavulanate Potassium (By mouth), Insulin Lispro (By injection), Apixaban (By mouth), Ischemic Stroke (DC), Self Care Measures After a Stroke (DC), Opioid Safety Activity Restrictions/Additional Instructions: - If any recurrent strokelike symptoms please call 911 -Please take Eliquis as prescribed, if you develop bloody or black stools go to emergency room -Wear a event monitor as prescribed -Please monitor your blood sugars closely -Monitor your blood sugars 3 times daily as after meals -Please record your blood sugars, and a blood sugar log -For your NovoLog -Please inject blood sugar after meals based on sliding scale provided -Do not inject insulin if you do not eat as hypoglycemia kills -This is a NovoLog sliding scale -Insulin sliding ?fingerstick? Insulin ?141-180?0 units/sq 181-220?2 units/sq ?221-260?4 units/sq ?261-300 6 units/sq ?301-350?8 units/sq ?351-400 10 units/sq ?401-450?12 units/sq >450? 14units/sq -If your blood sugar is greater than 500 go to the emergency room -If your blood sugar is less than 60 or at anytime you feel lightheaded or dizzy or diaphoretic or have chest palpitations check your blood sugar, and eat a hard candy or drink orange juice and go immediately to the emergency room -Remember hypoglycemia kills, so if his blood sugar is less than 60 we have to increase it by taking in a sugary meal such as a hard candy or orange juice and go to the emergency room -If you have any questions please call us where here to help Discharge Attestations Time Spent in Discharge Care*: greater than 30 min Quality Metrics Clinical Quality Measures [ Cerebrovascular Accident { Contraindication to Antithrombotic: None; antithrombotic prescribed; Contraindication to Anticoagulation: None; anticoagulation prescribed; Contraindication to Statin: None; Statin prescribed;}] Coding Level of Care Code 78503 Total time (in minutes) for Discharge: 45 Diagnoses Acute CVA (cerebrovascular accident) I63.9 Primary hypertension I10 Hypertension type: primary hypertension Atherosclerosis of [place] coronary artery of [place] heart without angina pectoris I25.10 Coronary Disease-Associated Artery/Lesion type: [place] artery Hx of CABG Z95.1 Type 2 diabetes mellitus with hyperglycemia, without long-term current use of insulin E11.65 Diabetes mellitus complication status: with hyperglycemia Diabetes mellitus terminal gauger supervisor insulin use: without penitentiary use Diabetes mellitus type: type 2 BMI 31.0-31.9,adult Z68.31
--- NOTE | 2024-09-02 12:01 | PC.NURSE ---
[facility] transportation has been set up for 0800 tomorrow morning.
--- NOTE | 2024-09-02 12:02 | XR_ITS ---
WS: [id number] XR chest 1V portable [id number] REASON FOR EXAM: sob FINDINGS: Sternal sutures with previous coronary artery bypass surgery. Moderate tortuosity and ectasia of the aorta. Heart size is within normal limits. There is elevation of the right hemidiaphragm. Calcified granulomatous disease bilaterally. There are horizontal linear opacities in the left lower lung compatible with atelectasis or chronic scarring. Ill-defined opacities in the right lower lung obscuration of a portion of the hamate diaphragmatic contour. XR/XR chest 1V portable [id number] IMPRESSION: Left lung opacities not likely significant. The abnormality in the left lower lung could represent atelectasis or possibly an acute or subacute pneumonitis.
[2024-09-02] MEDS: methylPREDNISolone sod succ 125 mg/2 mL INJ IVP (12:11)
[2024-09-02] MEDS: cefTRIAXone 1,000 mg SDV 1000 MG IVP (13:23)
--- NOTE | 2024-09-02 16:22 | PM.PN ---
Subjective Subjective: Patient was seen this morning, he is alert oriented x 3, following all commands, his left upper extremity weakness is improving, and left lower extremity weakness is improving his spirits are better, I also spoke to patient while patient was in the room, over the phone, discussed patient's CVA, clinical progress, my suspicion for atrial fibrillation, he is on Eliquis therapy, plan on discharging to rehab facility in the next 2448 hrs., he is wheezing this morning will have speech therapy see him again today, keep him on a dysphagia level 4 diet, mild thickener, do chest x-ray today plan on steroids, antibiotics for possible COPD exacerbation, aspiration pneumonia, they are all in agreement Vitals/I&O/Wt Last Vital Signs Temp 98.4 F 09/02/24 15:08 Pulse 68 09/02/24 15:08 Resp 16 09/02/24 15:08 BP 154/74 09/02/24 15:08 Pulse Ox 93 09/02/24 15:08 O2 Del Method Nasal Cannula 09/02/24 15:08 O2 Flow Rate 3 09/02/24 15:08 09/02/24 09/02/24 09/02/24 06:59 14:59 22:59 Intake Total 480 / 480 Output Total 650 / 1500 Balance -650 / -180 480 / 480 Weight last 48 hrs Weight 95.708 kg Weight 95.708 kg Physical Exam Const: COMMON NORMALS: no acute distress and patient oriented x3 Resp: COMMON NORMALS: normal respiratory effort, No retractions and No use of accessory muscles AUSCULTATION: crackles and wheezes Cardio: COMMON NORMALS: regular rate, regular rhythm, S1 normal heart sound present and S2 normal heart sound present RATE: regular rate RHYTHM: regular rhythm HEART SOUNDS: S1 normal heart sound present and S2 normal heart sound present GI: COMMON NORMALS: Normal to inspection, nondistended, normoactive bowel sounds present and non-tender Extremity: COMMON NORMALS: no pedal edema OTHER: Left upper and left lower extremity weakness improving although still significant diminished compared to the right Neuro: COMMON NORMALS: patient oriented x3 Psych: COMMON NORMALS: mental status grossly normal Data 09/01/24 02:37 09/01/24 02:37 A&P Assessment and plan (1) Acute CVA (cerebrovascular accident): (2) Hypertension: (3) Atherosclerosis of coronary artery of [place] heart without angina pectoris: (4) Hx of CABG: (5) Diabetes: (6) BMI 31.0-31.9,adult: (7) Left-sided weakness: (8) COPD exacerbation: (9) Aspiration pneumonia: Plan Acute CVA -With left-sided deficits, left upper left lower extremity weakness, left facial droop, slurring of his words, some productive and receptive aphasia MRI brain MR/MR head wo con* [id number] IMPRESSION: Acute right-sided pontine infarct - CT head CT/CT head thrombolytic [id number] IMPRESSION: 1. Vague area of low density involving the right side of the braden suggesting subacute infarct. This area has decreased in density over the past 2 days. A CTA performed 2 days earlier demonstrates severe bilateral vertebral artery stenoses. 2. Mild cerebral atrophy - Recent history of CT A CT/CT angio headneck* [id number] Impression: 1. Normal common carotid and internal carotid circulation in the neck with minimal narrowing from carotid calcification and stenosis at the bifurcations. 2. Normal vertebral artery circulation. 3. Normal intracerebral circulation with no evidence of stenosis or obstruction of the intracerebral circulation. -Back in 03/2022 patient had an episode of A-fib with RVR, when he had pneumonia, converted back to normal sinus rhythm -He subsequently followed up with cardiology, had an event monitor placed, no significant atrial fibrillation events, not deemed a candidate for anticoagulant therapy - Repeat CTA head and neck 08/29/2024 did not show any lesions amenable to embolectomy given history of atrial fibrillation, new onset left-sided hemiplegia Modified barium swallow FINDINGS: There is no penetration of contrast into the laryngeal vestibule. There is no aspiration. Barium tablet showed delayed in the distal esophagus before passage into the stomach. It was not clear if this was due to a narrowing or dysmotility. FL/FL barium swallow modifd [id number] IMPRESSION: Detailed report of the swallowing will be rendered by the speech therapy department. Consideration of a formal esophagram may be considered to better evaluate the distal esophagus as clinically warranted. Plan - Eliquis has been started -Aspirin -Statin - Completed permissive hypertension - Has been started on metoprolol, Cardizem -He did have 1 soft blood pressure overnight, will we will continue to monitor blood pressures closely consider adding on his home lisinopril's at half the dose he takes at home -Recent history of echo with bubble within normal limits, no intracardiac shunting -Full code - Eliquis for DVT prophylaxis COPD exacerbation, with aspiration pneumonia - Status post steroids today - Rocephin History of atrial fibrillation - Eliquis therapy - Patient takes metoprolol at home, will resume Type 2 diabetes mellitus, low-dose sliding scale History of hypertension History of CAD History of CABG Hyperlipidemia Obstructive sleep apnea, unable to tolerate CPAP History of alpha-1 antitrypsin deficiency Persistent wheezing continue dysphagia level 4 diet, aspiration precautions, speech therapy eval, IV steroids, IV antibiotics, PT OT PDMP PDMP Reviewed: Not Reviewed Attestations Medical Necessity Statement*: Patient requires hospitalization for aspiration pneumonia, COPD, acute CVA, left-sided weakness, atrial fibrillation, hypertension Diagnoses Acute CVA (cerebrovascular accident) I63.9 Primary hypertension I10 Hypertension type: primary hypertension Atherosclerosis of [place] coronary artery of [place] heart without angina pectoris I25.10 Coronary Disease-Associated Artery/Lesion type: [place] artery Hx of CABG Z95.1 Type 2 diabetes mellitus with hyperglycemia, without long-term current use of insulin E11.65 Diabetes mellitus type: type 2 Diabetes mellitus penitentiary insulin use: without termite control technician use Diabetes mellitus complication status: with hyperglycemia BMI 31.0-31.9,adult Z68.31 Left-sided weakness R53.1 COPD exacerbation J44.1 Aspiration pneumonia J69.0
[2024-09-02 16:51] LABS: Glucose Point of Care 183 mg/dL (70-110)
[2024-09-02] MEDS: pantoprazole 40 mg SDV IVP (17:11)
[2024-09-02] MEDS: lisinopril 20 mg Tablet PO (17:12)
[2024-09-02] MEDS: aspirin 81 mg EC Tablet PO (17:12)
[2024-09-02 20:21] LABS: Glucose Point of Care 262 mg/dL (70-110)
[2024-09-02] MEDS: diphenhydrAMINE 50 mg Capsule PO (20:34)
[2024-09-03] VITALS: BP 140/77; PULSE 73; RESP 16; TEMP 36.8; O2SAT 93
[2024-09-03] MEDS: metoprolol tartrate 25 mg Tablet 12.5 MG PO (01:56)
[2024-09-03 06:00] VITALS: PULSE 66
[2024-09-03 06:13] LABS: Glucose Point of Care 227 mg/dL (70-110)
[2024-09-03 07:30] VITALS: BP 165/87; PULSE 66; RESP 16; TEMP 36.8; O2SAT 96
[2024-09-03] MEDS: insulin lispro 100 unit/1 mL SUBCUT (07:50)
[2024-09-03] MEDS: NIFEdipine ER (24 hr) 30 mg Tablet 60 MG PO (07:51)
[2024-09-03] MEDS: lisinopril 20 mg Tablet PO (07:51)
[2024-09-03] MEDS: apixaban 5 mg Tablet PO (07:53)
[2024-09-03 08:05] VITALS: BP 165/87; PULSE 66; RESP 16; TEMP 36.8
--- NOTE | 2024-09-03 08:40 | PC.NURSE ---
Called report to Timothy Barros RN at [facility] Direct Number to [facility] is [phone]
[2024-09-03 08:49] VITALS: PULSE 74; RESP 17; O2SAT 93
--- NOTE | 2024-09-03 09:21 | PC.NURSE ---
transfer coordinator rounds- 0850 patient sitting on the edge of the bed getting dressed and ready to transfer to rehab.
[2024-09-03 10:33] VITALS: BP 165/87; PULSE 66; RESP 16; TEMP 36.8; O2SAT 96
== END 2024-09-03 10:30 | disposition home or self-care (01) | DRG 64 ==
LOC: ER 14:00 → MEDSURG 14:44
PROVIDERS: Internal Medicine; Admitting Provider Family Medicine; Emergency Provider Emergency Medicine; PCP Family Medicine; Visit Provider Family Medicine
DX: I63.89 Other cerebral infarction (principal); J69.0 Pneumonitis due to inhalation of food and vomit; G81.94 Hemiplegia, unspecified affecting left nondominant side; J44.1 Chronic obstructive pulmonary disease with (acute) exacerbation; I10 Essential (primary) hypertension; E78.5 Hyperlipidemia, unspecified; J44.9 Chronic obstructive pulmonary disease, unspecified; E66.9 Obesity, unspecified; G47.33 Obstructive sleep apnea (adult) (pediatric); I48.91 Unspecified atrial fibrillation; R29.810 Facial weakness; R47.01 Aphasia; I25.10 Atherosclerotic heart disease of native coronary artery without angina pectoris; R29.711 NIHSS score 11; E11.65 Type 2 diabetes mellitus with hyperglycemia; Z68.31 Body mass index [BMI] 31.0-31.9, adult; Z95.1 Presence of aortocoronary bypass graft; Z79.82 Long term (current) use of aspirin; Z79.899 Other long term (current) drug therapy; Z79.84 Long term (current) use of oral hypoglycemic drugs; Z88.2 Allergy status to sulfonamides; Z88.8 Allergy status to other drugs, medicaments and biological substances
CPT/HCPCS: 12345; 36415; 36416; 70450; 70496; 70498; 70551; 71045; 74230; 80048; 80053; 80061; 80306; 81001; 82962; 83735; 84443; 85025; 85610; 85730; 92507; 92523; 92526; 92610; 92611; 93005; 94640; 94664; 96372; 96374; 97116; 97161; 97165; 97530; 99285; J0696; J1650; J1815; J2060; J2470; J2919; J7030; J9999; Q0163

== ENCOUNTER → 2024-11-19 10:17 | Outpatient (BNVA) | payer OTHER, SELFPAY | PROVIDERS: PCP Family Medicine; Referring Provider Family Medicine; Visit Provider Nurse Practitioner | DX: I63.9 Cerebral infarction, unspecified (principal) | CPT/HCPCS: 99213 ==